=== PATIENT | male | born 1940 | race Caucasian/White ===

== ENCOUNTER 2021-06-17 23:46 | Inpatient (IN) ==
[2021-06-18] MEDS ORDERED: LIDOCAINE 2% URO-JET 10 ML JEL.PF.APP UR ONE (01:01)
[2021-06-18 01:05] LABS: POC Creatinine 2.1 mg/dL (0.6-1.2)
[2021-06-18] MEDS ORDERED: cefTRIAXone 1 GM VIAL IV ONE ×2 (01:24→07:38)
[2021-06-18 01:34] LABS: Basophils # (Auto) 0.06 K/mcL (0.00-0.30); Basophils % (Auto) 0.4 % (0.0-2.0); Eosinophils # (Auto) 0.03 K/mcL (0.00-0.70); Eosinophils % (Auto) 0.2 % (0.0-7.0); Hematocrit 26.3 % (40.1-51.0); Hemoglobin 8.9 g/dL (13.7-17.5); Lymphocytes # (Auto) 1.52 K/mcL (1.50-4.80); Lymphocytes % (Auto) 9.8 % (15.5-49.0); Mean Corpuscular HGB Conc 33.8 g/dL (31.0-36.0); Mean Platelet Volume 9.7 fL (7.4-10.4); Monocytes # (Auto) 1.55 K/mcL (0.10-0.90); Neutrophils % (Auto) 79.6 % (38.0-78.0); Platelet Count 360 K/mcL (140-440); RBC 2.99 M/mcL (4.63-6.08); Red Cell Distribution Width 14.7 % (11.5-14.5); WBC 15.5 K/mcL (4.5-11.0)
[2021-06-18 02:01] LABS: ALT/SGPT 18 U/L (<40); AST/SGOT 10 U/L (<40); Albumin 2.6 gm/dL (3.2-5.2); Albumin/Globulin Ratio 0.8 (1.0-2.3); Alkaline Phosphatase 73 U/L (39-117); Bilirubin,Total 0.4 mg/dL (0.1-1.0); Blood Urea Nitrogen 37 mg/dL (8-23); Calcium 8.4 mg/dL (8.6-10.4); Carbon Dioxide 17 mmol/L (22-30); Chloride 102 mmol/L (96-108); Globulin 3.2 gm/dL (2.2-3.7); Glomerular Filtration Rate 32; Glucose 130 mg/dL (70-105)
--- NOTE | 2021-06-18 03:20 | Cat Scan Report ---
CLINICAL INFORMATION: Fever and hypoxia COMPARISON: None. TECHNIQUE: Enteric contrast was utilized. 80 cc of Isovue-370 were injected intravenously, and 50 seconds later, 0.625 mm helical slices were obtained from the lung apices through the subtrochanteric regions of the femurs. Following reconstruction, 2.5 mm sagittal, coronal and axial reformatted images were processed and reviewed at multiple windows and levels. 7 mm MIP reconstructions were obtained through the lungs to optimize nodule detection.The exam was performed using radiation dose optimization techniques including, but not limited to, automated exposure control, adjustment of the mA and/or kV according to patient size and use of iterative reconstruction technique. FINDINGS: Pulmonary parenchymal windows mild bibasilar atelectasis.. Small right pleural effusion appreciated. Mediastinal windows show the heart is grossly normal in size and configuration. Scattered calcific plaque present within the coronary arteries. Noncontrast thoracic aorta and pulmonary arteries are normal diameter without abnormality. There is no adenopathy in the mediastinal, hilar or axillary regions. Esophagus is grossly normal. A 2 cm colloid cyst seen in the inferior left thyroid lobe. Abdominal images show mild thickened gallbladder wall with small amount of pericholecystic fluid. There are multiple small stones ranging up to 8 mm. Intrahepatic and common bile ducts are normal caliber. The noncontrasted liver, both adrenal glands, both kidneys spleen, pancreas, and aorta are normal in size, configuration and attenuation without focal lesion. There is no free air. Small amount of free fluid noted deep in the pelvis. Pelvic images show a large (9 cm) well-circumscribed mass which appears to arisen from a large diverticulum from the posterior left urinary bladder. It is possible, this represents a large obturator node extrinsically compressing the left lateral wall of the urinary bladder, but this is less likely. It compresses the distal left ureter resulting in mild left hydroureter/hydronephrosis. Urinary bladder wall is moderately thickened and irregular. A 16 mm bladder stone is present in the base with. The prostate appears be surgically absent. The stomach, small bowel, appendix region and large bowel are grossly normal. Bone windows show no evidence of metastatic disease or other significant osseous abnormality throughout the chest abdomen or pelvis. IMPRESSION: 1. Large (9 cm) mass likely originating from a large left urinary bladder diverticulum. 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 The mass partially obstructs distal left ureteral resulting in mild left hydroureter/hydronephrosis. It is possible, but unlikely, it represents a very large conglomerate of adenopathy in the left obturator region which extrinsically compresses and invades the left urinary bladder base. Further evaluation with cystoscopy recommended. If extrinsic to the bladder, it would be amenable to CT-guided percutaneous biopsy. 2. 16 mm stone urinary bladder 3. Diffuse urinary bladder wall thickening could indicate superimposed cystitis. 4. Cholelithiasis. Mild gallbladder wall thickening appreciated. This could represent cholecystitis. Consider gallbladder ultrasound 5. Large amount of subcutaneous edema seen throughout the lower abdomen and pelvis 6. Small right pleural effusion. Minor right basilar atelectasis. Interpreted and Authenticated by: Paul Figueroa 06/18/21
[2021-06-18 03:21] LABS: Appearance,Urine HAZY (Clear); Bilirubin,Urine Negative (Negative); Color,Urine YELLOW; Culture Indicated,Urine yes; Glucose,Urine (UA) Negative (Negative); Ketones,Urine Negative (Negative); Leukocyte Esterase,Urine 500 /uL (Negative); Mucus,Urine FEW /hpf; Nitrate,Urine Negative (Negative); Protein,Urine 100 mg/dL (Negative); Specific Gravity,Urine 1.011 (1.000-1.035); Urine Amorphous Crystals FEW /hpf; Urine Blood >=1.0 mg/dL (Negative); Urine RBC 10 /hpf (0-3); Urine Squamous Epithelial Cell 0 /hpf (0-4); Urine WBC 116 /hpf (0-4); Urobilinogen,Urine Negative
--- NOTE | 2021-06-18 03:27 | XRay Report ---
CLINICAL INFORMATION: Shortness of breath and fever COMPARISON: None. TECHNIQUE: PA and Lateral views FINDINGS: The heart size, mediastinum and pulmonary vessels are unremarkable. The right diaphragm is mildly elevated as before. There is minor bibasilar atelectasis. There are no effusions. The bones and soft tissues are within normal limits. IMPRESSION: Minor bibasilar atelectasis and right diaphragm elevation Interpreted and Authenticated by: Paul Figueroa 06/18/21
--- NOTE | 2021-06-18 03:51 | Emergency Department Note ---
SOB HPI General Chief Complaint: Shortness of Breath/Dyspnea Stated Complaint: Shortness of breath Time Seen by Provider: 06/18/21 00:00 Source: patient, old records reviewed and other (Dr. bharath Negron, at [facility] who was transferring [phone] ext [phone]) Mode of arrival: EMS Limitations: physical limitation (hard of hearing) History of Present Illness HPI Narrative: Narrative: 81-year-old male transferred to our facility by Dr. Bharath Negron at [facility] because the patient required CT scan which was unavailable at their location. The patient originally arrived to [facility] with hypoxia and confusion. He was noted to have a pulse ox of 60% on room air. Aft er interventions at that hospital and sometime he was able to maintain a pulse ox of 88% on 1 L of oxygen. He was noted to be tachycardic at the 115 range along with a fever of 100.5, and short of breath. On physical exam the patient had edema from his feet all the way to his groin including his penis. He has a history of a left DVT for which she was on Eliquis for the past month. Now he is got swelling in both lower extremities. He has been unable to urinate. He appears to have a distended bowel on physical exam but no pain. He had a prior urinary tract infection in December 2020. Laborat ory revealed a white count of 15,000. BUN was 2.3 and creatinine of 38. Previous laboratory showed a BUN of 17 and creatinine of 1.2. Dr. Negron wanted to get a CT scan but that was unavailable at their facility so she contacted us for transfer. We accepted. On arrival patient was alert and no longer in respiratory distress. With a pulse ox of 97% on room air and a pulse of 100 with a blood pressure of 97/57. He complained of swelling in his feet. Stated he had the edema in his lower ext remities for the past 6 weeks. Rated his discomfort at this time as a 4 on a 0- 10 scale. Constant. It had gotten better since he first went to [facility]. Possibly associated with the inability to urinate. No referred symptoms. Youngest daughter was not present when he first arrived but I had the opportunity to speak to her around 4 AM. Related Data Home Medications Medication Instructions Recorded Confirmed amlodipine 10 mg tablet 1 tab PO QDAY 06/18/21 06/18/21 apixaban 5 mg tablet (Eliquis) 5 tab PO QDAY 06/18/21 06/18/21 cholecalciferol (vitamin D3) 50 50 mcg PO QDAY 06/18/21 06/18/21 mcg (2,000 unit) capsule (Vitamin D3) diltiazem HCl 120 mg 1 cap PO QDAY 06/18/21 06/18/21 capsule,extended release 24 hr fluticasone propionate 50 1 spray INTRANASAL QDAY 06/18/21 06/18/21 mcg/actuation nasal spray,suspension losartan 100 1 tab PO QDAY 06/18/21 06/18/21 mg-hydrochlorothiazide 25 mg tablet nitrofurantoin 1 cap PO BID 06/18/21 06/18/21 monohydrate/macrocrystals 100 mg capsule ondansetron 4 mg disintegrating 4 mg PO Q6H 06/18/21 06/18/21 tablet potassium chloride 20 mEq 1 tab PO QDAY 06/18/21 06/18/21 tablet,extended release(part/cryst) (Klor-Con M) pregabalin 75 mg capsule 1 cap PO QDAY 06/18/21 06/18/21 tamsulosin 0.4 mg capsule 1 cap PO QDAY 06/18/21 06/18/21 Allergies Allergy/AdvReac Type Severity Reaction Status Date / Time lovastatin Allergy Intermediate Hives Verified 06/18/21 02:50 simvastatin Allergy Intermediate Rash Verified 06/18/21 02:50 lisinopril AdvReac Intermediate Cough Verified 06/18/21 02:50 Review of Systems ROS ROS Narrative: Narrative: Constitutional: Reports fever Eyes: Denies eye pain ENT ED: Denies throat pain or rhinorrhea Cardiovascular: Denies chest pain Respiratory: Reports shortness of breath and cough Gastrointestinal: Reports abdominal pain and other (Edematous lower part); Denies nausea or vomiting Musculoskeletal: Reports back pain (Chronic) Integumentary: Denies rash Neurological: Reports confusion (Not at the time he arrived at our hospital but prior when he was at [facility].); Denies headache Allergic/Immunologic: Denies facial swelling PFSH Narrative Patient History Narrative: Narrative: Medical/Surgical/Family History All Active Problems (Updated 06/18/21 @ 04:54 by Sujit Victoria MD) Hypertension (Acute) Influenza (Acute) UTI (urinary tract infection) (Acute) Mass of urinary bladder (Acute) Acute renal insufficiency (Acute) Anemia (Acute) Acute urinary retention (Acute) Acute respiratory insufficiency (Acute) Infection, systemic (Acute) Acute hyponatremia (Acute) Cholelithiasis (Acute) Dependent edema (Acute) Social History Smoking Status: Former smoker Exam Narrative Narrative: Narrative: General Limitations: physical limitation (hard of hearing) General appearance: Present alert, in distress and other (He has a rather large man) Head Head: Present atraumatic and normocephalic ENT ENT: Present normal oropharynx and mucous membranes moist Neck Neck: Present trachea midline; Absent meningismus Respiratory Respiratory: Present rales/crackles; Absent respiratory distress Cardiovascular Cardiovascular: Present normal rhythm and tachycardia Adbominal Abdominal: Present soft, tenderness and other (Edematous inferior abdomen) Extremities Extremities: Present pedal edema and other (4+ edema from the feet all the way to the pelvis.) Back Back: Absent tenderness Neurological Neurological: Present alert and oriented X3 Psychiatric Psychiatric: Present normal affect and normal mood Skin Skin: Present warm (WNL) and dry Course Vital Signs Vital signs: Vital Signs Temperature 102.0 F H 06/17/21 23:48 Pulse Rate 103 H 06/17/21 23:48 Respiratory Rate 21 06/17/21 23:48 Blood Pressure 90/59 06/17/21 23:48 Pulse Oximetry (%) 96 06/17/21 23:48 Temperature 97.9 F 06/18/21 01:57 Pulse Rate 88 06/18/21 09:31 Respiratory Rate 26 H 06/18/21 09:31 Blood Pressure 113/58 06/18/21 09:31 Pulse Oximetry (%) 99 06/18/21 09:31 MDM MDM Narrative Medical decision making narrative: Narrative: Elderly male presents via ambulance to our facility transfer from [facility] because of a multitude of symptoms and a clear need for CT scan. Differential diagnosis includes COVID, deep venous thrombosis, pulmonary embolus, pneumonia, pneumothorax, renal infection, sepsis, urinary tract infection, other. Laboratory performed initially revealed a white count of 15.5 with 80 gayle trophils and 10 lymphs. Hemoglobin was 8.9 which is dramatically less than the 16.1 that was on March 2019. Platelets were 360,000. Lactic acid was 1.0 which was significantly improved from the 2.8 lactic acid that [facility] obtained. Sodium was low at 131. Chloride was 102 potassium was 3.9 and bicarb was low at 17. BUN was 37 and creatinine was 1.9 after receiving fluids from [facility]. Glucose was 130. Troponin was 0.04 which is mildly elevated but may be compatible with renal disease. My nurses inserted catheter for urinary sample and the patient drained 4500 mL of urine. Patient stated he felt much better afterwards. Urinalysis revealed 10 RBCs per high-powered field and 116 WBCs per high-powered field indicating urinary tract infection. Chest x-ray showed mild bibasilar atelectasis. 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 The mass partially obstructs the distal left ureter resulting in mild left hydroureter and hydronephrosis. It is possible but unlikely that it represents a very large conglomerate of adenopathy in the left obturator region which extrinsically compresses and invades the left urinary bladder base. Further evaluation with cystoscopy recommended if the string is not to the bladder. It would be amenable to CT-guided percutaneous biopsy. CT scan also showed a 16mm stone in the urinary bladder showed the patient was status post prostatectomy, there was diffuse urinary bladder wall thickening, cholelithiasis with mild gallbladder wall thickening. Large amounts of subcutaneous edema throughout the lower abdomen and pelvis. Small right pleural effusion. Based on all of this information I believe the patient required hospitalization. The hospital has a bed and the hospitalist will be excepting. I have not reinserted a catheter into his bladder though I suspect he will need this. I do want to give the patient a chance to say whether he feels the need to urinate independently before reinserting a catheter. Patient originally met several criteria for 6 sepsis including a temperature above 100.4, tachycardia above 100, and a respiratory rate greater than 20. Patient had an adequate blood pressure and so I did not bolus him the 2 L. I did bolus him 1 L and believe he did receive a liter from [facility]. Patient was given a gram of ceftriaxone IV. At this point the patient is much improved and will be admitted to the hospital for further care. Lab Data Result diagrams: 06/18/21 00:47 06/18/21 00:47 Labs: Lab Results 06/18/21 06/18/21 06/18/21 Range/Units 00:47 00:47 00:47 WBC 15.5 H (4.5-11.0) K/mcL RBC 2.99 L (4.63-6.08) M/mcL Hgb 8.9 L (13.7-17.5) g/dL Hct 26.3 L (40.1-51.0) % MCV 88.0 (80.0-100.0) fL MCH 29.8 (26.0-34.0) pg MCHC 33.8 (31.0-36.0) g/dL RDW 14.7 H (11.5-14.5) % Plt Count 360 (140-440) K/mcL MPV 9.7 (7.4-10.4) fL Neut % (Auto) 79.6 H (38.0-78.0) % Lymph % (Auto) 9.8 L (15.5-49.0) % [place] % (Auto) 10.0 (1.0-12.0) % Eos % (Auto) 0.2 (0.0-7.0) % Baso % (Auto) 0.4 (0.0-2.0) % Lymph # (Auto) 1.52 (1.50-4.80) K/mcL [place] # (Auto) 1.55 H (0.10-0.90) K/mcL Eos # (Auto) 0.03 (0.00-0.70) K/mcL Baso # (Auto) 0.06 (0.00-0.30) K/mcL Absolute Neutrophils 12.34 H (1.80-8.00) K/mcL VBG Lactic Acid 1.0 (0.5-2.0) mmol/L Sodium 131 L (133-145) mmol/L Potassium 3.9 (3.3-5.1) mmol/L Chloride 102 (96-108) mmol/L Carbon Dioxide 17 L (22-30) mmol/L Anion Gap 12.0 (8.0-16.0) BUN 37 H (8-23) mg/dL Creatinine 1.9 H (0.7-1.2) mg/dL POC Creatinine 2.1 H (0.6-1.2) mg/dL GFR Calculation 32 Glucose 130 H (70-105) mg/dL Calcium 8.4 L (8.6-10.4) mg/dL Total Bilirubin 0.4 (0.1-1.0) mg/dL AST 10 (<40) U/L ALT 18 (<40) U/L Alkaline Phosphatase 73 (39-117) U/L Troponin T (<0.03) ng/mL NT-Pro-B Natriuret Pep (<450.0) pg/mL Total Protein 5.8 L (5.9-8.4) gm/dL Albumin 2.6 L (3.2-5.2) gm/dL Globulin 3.2 (2.2-3.7) gm/dL Albumin/Globulin Ratio 0.8 L (1.0-2.3) Urine Color Urine Appearance (Clear) Urine pH (5.0-9.0) Ur Specific [place] (1.000-1.035) Urine Protein (Negative) mg/dL Urine Glucose (UA) (Negative) mg/dL Urine Ketones (Negative) mg/dL Urine Occult Blood (Negative) mg/dL Urine Nitrate (Negative) Urine Bilirubin (Negative) mg/dL Urine Urobilinogen mg/dL Ur Leukocyte Esterase (Negative) /uL Urine RBC (0-3) /hpf Urine WBC (0-4) /hpf Ur Squamous Epith Cells (0-4) /hpf Amorphous Crystals (None) /hpf Urine Bacteria (0) /hpf Urine Mucus (None) /hpf Ur Culture Indicated? 06/18/21 06/18/21 06/18/21 Range/Units 00:47 01:34 07:14 WBC (4.5-11.0) K/mcL RBC (4.63-6.08) M/mcL Hgb (13.7-17.5) g/dL Hct (40.1-51.0) % MCV (80.0-100.0) fL MCH (26.0-34.0) pg MCHC (31.0-36.0) g/dL RDW (11.5-14.5) % Plt Count (140-440) K/mcL MPV (7.4-10.4) fL Neut % (Auto) (38.0-78.0) % Lymph % (Auto) (15.5-49.0) % Stafford % (Auto) (1.0-12.0) % Eos % (Auto) (0.0-7.0) % Baso % (Auto) (0.0-2.0) % Lymph # (Auto) (1.50-4.80) K/mcL Stafford # (Auto) (0.10-0.90) K/mcL Eos # (Auto) (0.00-0.70) K/mcL Baso # (Auto) (0.00-0.30) K/mcL Absolute Neutrophils (1.80-8.00) K/mcL VBG Lactic Acid (0.5-2.0) mmol/L Sodium (133-145) mmol/L Potassium (3.3-5.1) mmol/L Chloride (96-108) mmol/L Carbon Dioxide (22-30) mmol/L Anion Gap (8.0-16.0) BUN (8-23) mg/dL Creatinine (0.7-1.2) mg/dL POC Creatinine (0.6-1.2) mg/dL GFR Calculation Glucose (70-105) mg/dL Calcium (8.6-10.4) mg/dL Total Bilirubin (0.1-1.0) mg/dL AST (<40) U/L ALT (<40) U/L Alkaline Phosphatase (39-117) U/L Troponin T 0.04 H* 0.05 H* (<0.03) ng/mL NT-Pro-B Natriuret Pep (<450.0) pg/mL Total Protein (5.9-8.4) gm/dL Albumin (3.2-5.2) gm/dL Globulin (2.2-3.7) gm/dL Albumin/Globulin Ratio (1.0-2.3) Urine Color Yellow Urine Appearance Hazy A (Clear) Urine pH 5.0 (5.0-9.0) Ur Specific [place] 1.011 (1.000-1.035) Urine Protein 100 A (Negative) mg/dL Urine Glucose (UA) Negative (Negative) mg/dL Urine Ketones Negative (Negative) mg/dL Urine Occult Blood >=1.0 A (Negative) mg/dL Urine Nitrate Negative (Negative) Urine Bilirubin Negative (Negative) mg/dL Urine Urobilinogen Negative mg/dL Ur Leukocyte Esterase 500 A (Negative) /uL Urine RBC 10 H (0-3) /hpf Urine WBC 116 H (0-4) /hpf Ur Squamous Epith Cells 0 (0-4) /hpf Amorphous Crystals Few A (None) /hpf Urine Bacteria None (0) /hpf Urine Mucus Few A (None) /hpf Ur Culture Indicated? yes 06/18/21 Range/Units 07:14 WBC (4.5-11.0) K/mcL RBC (4.63-6.08) M/mcL Hgb (13.7-17.5) g/dL Hct (40.1-51.0) % MCV (80.0-100.0) fL MCH (26.0-34.0) pg MCHC (31.0-36.0) g/dL RDW (11.5-14.5) % Plt Count (140-440) K/mcL MPV (7.4-10.4) fL Neut % (Auto) (38.0-78.0) % Lymph % (Auto) (15.5-49.0) % Stafford % (Auto) (1.0-12.0) % Eos % (Auto) (0.0-7.0) % Baso % (Auto) (0.0-2.0) % Lymph # (Auto) (1.50-4.80) K/mcL [place] # (Auto) (0.10-0.90) K/mcL Eos # (Auto) (0.00-0.70) K/mcL Baso # (Auto) (0.00-0.30) K/mcL Absolute Neutrophils (1.80-8.00) K/mcL VBG Lactic Acid (0.5-2.0) mmol/L Sodium (133-145) mmol/L Potassium (3.3-5.1) mmol/L Chloride (96-108) mmol/L Carbon Dioxide (22-30) mmol/L Anion Gap (8.0-16.0) BUN (8-23) mg/dL Creatinine (0.7-1.2) mg/dL POC Creatinine (0.6-1.2) mg/dL GFR Calculation Glucose (70-105) mg/dL Calcium (8.6-10.4) mg/dL Total Bilirubin (0.1-1.0) mg/dL AST (<40) U/L ALT (<40) U/L Alkaline Phosphatase (39-117) U/L Troponin T (<0.03) ng/mL NT-Pro-B Natriuret Pep 1044.0 H (<450.0) pg/mL Total Protein (5.9-8.4) gm/dL Albumin (3.2-5.2) gm/dL Globulin (2.2-3.7) gm/dL Albumin/Globulin Ratio (1.0-2.3) Urine Color Urine Appearance (Clear) Urine pH (5.0-9.0) Ur Specific [place] (1.000-1.035) Urine Protein (Negative) mg/dL Urine Glucose (UA) (Negative) mg/dL Urine Ketones (Negative) mg/dL Urine Occult Blood (Negative) mg/dL Urine Nitrate (Negative) Urine Bilirubin (Negative) mg/dL Urine Urobilinogen mg/dL Ur Leukocyte Esterase (Negative) /uL Urine RBC (0-3) /hpf Urine WBC (0-4) /hpf Ur Squamous Epith Cells (0-4) /hpf Amorphous Crystals (None) /hpf Urine Bacteria (0) /hpf Urine Mucus (None) /hpf Ur Culture Indicated? ED POC Tests ED POC Tests: DAVID - SARS Antigen Negative EKG Data EKG #1: EKG shows normal: sinus rhythm and axis Rate: normal Rhythm: NSR [place]/QRS: normal Voltage: decreased voltage throughout Heart block present: 1st Degree ST segment elevation in: None ST segment depression in: None Interpretation: other (Abnormal EKG.) CC TIME Critical Care Time Critical Care Time: Yes Total Critical Care Time: 40 Attestation: I spent greater than 40 minutes managing this patient including review of his chart, discussion with the transferring physician, review of the laboratory results, physical exam, speaking with family. Patient was critical in view of his meeting sepsis criteria and having been in respiratory failure at the transferring facility. Discharge Plan Patient/Caregiver Discharge Instructions Pt seen by ACCOUNTING SYSTEMS MANAGER/PA only: No Clinical Impression: Mass of urinary bladder, Acute renal insufficiency, Anemia, Acute urinary retention, Acute respiratory insufficiency, Infection, systemic, Acute hyponatr emia, Cholelithiasis, Dependent edema Patient Disposition: Xfer As Inpt ([facility]) Condition: Serious Follow up with: Debby Aranda ARNP [Primary Care Provider] - Prescriptions: No Action losartan-hydrochlorothiazide 100-25 mg tablet 1 tab PO QDAY 0RF potassium chloride [Klor-Con M20] 20 mEq tablet,ER particles/crystals 1 tab PO QDAY 0RF tamsulosin 0.4 mg capsule 1 cap PO QDAY 0RF amlodipine 10 mg tablet 1 tab PO QDAY 0RF diltiazem HCl 120 mg capsule,extended release 24hr 1 cap PO QDAY 0RF ondansetron 4 mg Tablet,Disintegrating 4 mg PO Q6H 0RF fluticasone propionate 50 mcg/actuation [place],Suspension 1 spray INTRANASAL QDAY 0RF Rx Instructions: administer into each nostril nitrofurantoin monohyd/m-cryst 100 mg capsule 1 cap PO BID 0RF pregabalin 75 mg capsule 1 cap PO QDAY 0RF cholecalciferol (vitamin D3) [Vitamin D3] 50 mcg (2,000 unit) Capsule 50 mcg PO QDAY 0RF Eliquis 5 mg tablet 5 tab PO QDAY 0RF
[2021-06-18] MEDS ORDERED: cefTRIAXone 1 GM VIAL IM ONE (06:58)
--- NOTE | 2021-06-18 09:08 | Emergency Department Note ---
Course Course Course Narrative: I assumed care from Dr. Victoria at the change of shift. Patient has been resting comfortably in bed without further complaints. I followed up on the repeat troponin which is not significantly elevated and discussed the situation with Dr. Nathan. He accepts admission to his service and will provide care in the hospital. Vital Signs Vital signs: Vital Signs Temperature 102.0 F H 06/17/21 23:48 Pulse Rate 103 H 06/17/21 23:48 Respiratory Rate 21 06/17/21 23:48 Blood Pressure 90/59 06/17/21 23:48 Pulse Oximetry (%) 96 06/17/21 23:48 Temperature 97.9 F 06/18/21 01:57 Pulse Rate 86 06/18/21 08:46 Respiratory Rate 19 06/18/21 08:46 Blood Pressure 122/67 06/18/21 08:46 Pulse Oximetry (%) 100 06/18/21 08:46 MDM MDM Narrative Medical decision making narrative: Narrative: Lab Data Result diagrams: 06/18/21 00:47 06/18/21 00:47 Labs: Lab Results 06/18/21 06/18/21 06/18/21 Range/Units 00:47 00:47 00:47 WBC 15.5 H (4.5-11.0) K/mcL RBC 2.99 L (4.63-6.08) M/mcL Hgb 8.9 L (13.7-17.5) g/dL Hct 26.3 L (40.1-51.0) % MCV 88.0 (80.0-100.0) fL MCH 29.8 (26.0-34.0) pg MCHC 33.8 (31.0-36.0) g/dL RDW 14.7 H (11.5-14.5) % Plt Count 360 (140-440) K/mcL MPV 9.7 (7.4-10.4) fL Neut % (Auto) 79.6 H (38.0-78.0) % Lymph % (Auto) 9.8 L (15.5-49.0) % [place] % (Auto) 10.0 (1.0-12.0) % Eos % (Auto) 0.2 (0.0-7.0) % Baso % (Auto) 0.4 (0.0-2.0) % Lymph # (Auto) 1.52 (1.50-4.80) K/mcL [place] # (Auto) 1.55 H (0.10-0.90) K/mcL Eos # (Auto) 0.03 (0.00-0.70) K/mcL Baso # (Auto) 0.06 (0.00-0.30) K/mcL Absolute Neutrophils 12.34 H (1.80-8.00) K/mcL VBG Lactic Acid 1.0 (0.5-2.0) mmol/L Sodium 131 L (133-145) mmol/L Potassium 3.9 (3.3-5.1) mmol/L Chloride 102 (96-108) mmol/L Carbon Dioxide 17 L (22-30) mmol/L Anion Gap 12.0 (8.0-16.0) BUN 37 H (8-23) mg/dL Creatinine 1.9 H (0.7-1.2) mg/dL POC Creatinine 2.1 H (0.6-1.2) mg/dL GFR Calculation 32 Glucose 130 H (70-105) mg/dL Calcium 8.4 L (8.6-10.4) mg/dL Total Bilirubin 0.4 (0.1-1.0) mg/dL AST 10 (<40) U/L ALT 18 (<40) U/L Alkaline Phosphatase 73 (39-117) U/L Troponin T (<0.03) ng/mL NT-Pro-B Natriuret Pep (<450.0) pg/mL Total Protein 5.8 L (5.9-8.4) gm/dL Albumin 2.6 L (3.2-5.2) gm/dL Globulin 3.2 (2.2-3.7) gm/dL Albumin/Globulin Ratio 0.8 L (1.0-2.3) Urine Color Urine Appearance (Clear) Urine pH (5.0-9.0) Ur Specific [place] (1.000-1.035) Urine Protein (Negative) mg/dL Urine Glucose (UA) (Negative) mg/dL Urine Ketones (Negative) mg/dL Urine Occult Blood (Negative) mg/dL Urine Nitrate (Negative) Urine Bilirubin (Negative) mg/dL Urine Urobilinogen mg/dL Ur Leukocyte Esterase (Negative) /uL Urine RBC (0-3) /hpf Urine WBC (0-4) /hpf Ur Squamous Epith Cells (0-4) /hpf Amorphous Crystals (None) /hpf Urine Bacteria (0) /hpf Urine Mucus (None) /hpf Ur Culture Indicated? 06/18/21 06/18/21 06/18/21 Range/Units 00:47 01:34 07:14 WBC (4.5-11.0) K/mcL RBC (4.63-6.08) M/mcL Hgb (13.7-17.5) g/dL Hct (40.1-51.0) % MCV (80.0-100.0) fL MCH (26.0-34.0) pg MCHC (31.0-36.0) g/dL RDW (11.5-14.5) % Plt Count (140-440) K/mcL MPV (7.4-10.4) fL Neut % (Auto) (38.0-78.0) % Lymph % (Auto) (15.5-49.0) % [place] % (Auto) (1.0-12.0) % Eos % (Auto) (0.0-7.0) % Baso % (Auto) (0.0-2.0) % Lymph # (Auto) (1.50-4.80) K/mcL [place] # (Auto) (0.10-0.90) K/mcL Eos # (Auto) (0.00-0.70) K/mcL Baso # (Auto) (0.00-0.30) K/mcL Absolute Neutrophils (1.80-8.00) K/mcL VBG Lactic Acid (0.5-2.0) mmol/L Sodium (133-145) mmol/L Potassium (3.3-5.1) mmol/L Chloride (96-108) mmol/L Carbon Dioxide (22-30) mmol/L Anion Gap (8.0-16.0) BUN (8-23) mg/dL Creatinine (0.7-1.2) mg/dL POC Creatinine (0.6-1.2) mg/dL GFR Calculation Glucose (70-105) mg/dL Calcium (8.6-10.4) mg/dL Total Bilirubin (0.1-1.0) mg/dL AST (<40) U/L ALT (<40) U/L Alkaline Phosphatase (39-117) U/L Troponin T 0.04 H* 0.05 H* (<0.03) ng/mL NT-Pro-B Natriuret Pep (<450.0) pg/mL Total Protein (5.9-8.4) gm/dL Albumin (3.2-5.2) gm/dL Globulin (2.2-3.7) gm/dL Albumin/Globulin Ratio (1.0-2.3) Urine Color Yellow Urine Appearance Hazy A (Clear) Urine pH 5.0 (5.0-9.0) Ur Specific [place] 1.011 (1.000-1.035) Urine Protein 100 A (Negative) mg/dL Urine Glucose (UA) Negative (Negative) mg/dL Urine Ketones Negative (Negative) mg/dL Urine Occult Blood >=1.0 A (Negative) mg/dL Urine Nitrate Negative (Negative) Urine Bilirubin Negative (Negative) mg/dL Urine Urobilinogen Negative mg/dL Ur Leukocyte Esterase 500 A (Negative) /uL Urine RBC 10 H (0-3) /hpf Urine WBC 116 H (0-4) /hpf Ur Squamous Epith Cells 0 (0-4) /hpf Amorphous Crystals Few A (None) /hpf Urine Bacteria None (0) /hpf Urine Mucus Few A (None) /hpf Ur Culture Indicated? yes 06/18/21 Range/Units 07:14 WBC (4.5-11.0) K/mcL RBC (4.63-6.08) M/mcL Hgb (13.7-17.5) g/dL Hct (40.1-51.0) % MCV (80.0-100.0) fL MCH (26.0-34.0) pg MCHC (31.0-36.0) g/dL RDW (11.5-14.5) % Plt Count (140-440) K/mcL MPV (7.4-10.4) fL Neut % (Auto) (38.0-78.0) % Lymph % (Auto) (15.5-49.0) % [place] % (Auto) (1.0-12.0) % Eos % (Auto) (0.0-7.0) % Baso % (Auto) (0.0-2.0) % Lymph # (Auto) (1.50-4.80) K/mcL [place] # (Auto) (0.10-0.90) K/mcL Eos # (Auto) (0.00-0.70) K/mcL Baso # (Auto) (0.00-0.30) K/mcL Absolute Neutrophils (1.80-8.00) K/mcL VBG Lactic Acid (0.5-2.0) mmol/L Sodium (133-145) mmol/L Potassium (3.3-5.1) mmol/L Chloride (96-108) mmol/L Carbon Dioxide (22-30) mmol/L Anion Gap (8.0-16.0) BUN (8-23) mg/dL Creatinine (0.7-1.2) mg/dL POC Creatinine (0.6-1.2) mg/dL GFR Calculation Glucose (70-105) mg/dL Calcium (8.6-10.4) mg/dL Total Bilirubin (0.1-1.0) mg/dL AST (<40) U/L ALT (<40) U/L Alkaline Phosphatase (39-117) U/L Troponin T (<0.03) ng/mL NT-Pro-B Natriuret Pep 1044.0 H (<450.0) pg/mL Total Protein (5.9-8.4) gm/dL Albumin (3.2-5.2) gm/dL Globulin (2.2-3.7) gm/dL Albumin/Globulin Ratio (1.0-2.3) Urine Color Urine Appearance (Clear) Urine pH (5.0-9.0) Ur Specific [place] (1.000-1.035) Urine Protein (Negative) mg/dL Urine Glucose (UA) (Negative) mg/dL Urine Ketones (Negative) mg/dL Urine Occult Blood (Negative) mg/dL Urine Nitrate (Negative) Urine Bilirubin (Negative) mg/dL Urine Urobilinogen mg/dL Ur Leukocyte Esterase (Negative) /uL Urine RBC (0-3) /hpf Urine WBC (0-4) /hpf Ur Squamous Epith Cells (0-4) /hpf Amorphous Crystals (None) /hpf Urine Bacteria (0) /hpf Urine Mucus (None) /hpf Ur Culture Indicated? ED POC Tests ED POC Tests: DAVID - SARS Antigen Negative Discharge Plan Patient/Caregiver Discharge Instructions Pt seen by [employer]/PA only: No Clinical Impression: Mass of urinary bladder, Acute renal insufficiency, Anemia, Acute urinary retention, Acute respiratory insufficiency, Infection, systemic, Acute hyponatremia, Cholelithiasis, Dependent edema Patient Disposition: Xfer As Inpt ([facility]) Condition: Serious Follow up with: Debby Aranda ARNP [Primary Care Provider] - Prescriptions: No Action losartan-hydrochlorothiazide 100-25 mg tablet 1 tab PO QDAY 0RF potassium chloride [Klor-Con M20] 20 mEq tablet,ER particles/crystals 1 tab PO QDAY 0RF tamsulosin 0.4 mg capsule 1 cap PO QDAY 0RF amlodipine 10 mg tablet 1 tab PO QDAY 0RF diltiazem HCl 120 mg capsule,extended release 24hr 1 cap PO QDAY 0RF ondansetron 4 mg Tablet,Disintegrating 4 mg PO Q6H 0RF fluticasone propionate 50 mcg/actuation [place],Suspension 1 spray INTRANASAL QDAY 0RF Rx Instructions: administer into each nostril nitrofurantoin monohyd/m-cryst 100 mg capsule 1 cap PO BID 0RF pregabalin 75 mg capsule 1 cap PO QDAY 0RF cholecalciferol (vitamin D3) [Vitamin D3] 50 mcg (2,000 unit) Capsule 50 mcg PO QDAY 0RF Eliquis 5 mg tablet 5 tab PO QDAY 0RF
--- NOTE | 2021-06-18 09:28 | Internal Med History&Physical ---
HPI History of Present Illness Patient information: Note initiated : 06/18/21 at 9:23 am Service Date, if different from initiated Date: [] Patient: Jean Claude Clayton 81 y/o M admitted on for Shortness of breath. Chief Complaint: [] History of present illness: 81-year-old male with a history of hypertension, recently diagnosed left lower extremity DVT on Eliquis presented to an outside hospital ([facility]) with a chief complaint of bilateral lower extremity edema. Per report, the patient was initially found to be hypoxic and there was concern for abdominal pathology requiring a CT scan. Since the CT scan was not available, the patient was transported to the [facility] ED where he was found to have a large bladder mass partially obstructing the left ureter causing left-sided hydronephrosis. The patient had severe urinary retention, over 4 L was drained and ED. There was also concern for a UTI. The patient's hypoxia resolved. The patient also appears to be in right-sided heart failure with extensive bilateral lower extremity pitting edema. Review of systems Constitutional: no fever, fatigue, or weight loss Eyes: no vision changes or pain Cardiovascular: no chest pain, no palpitations Respiratory: no cough or dyspnea Gastrointestinal: no abdominal pain, no nausea, vomiting, or diarrhea Genitourinary: no dysuria or difficulty voiding Musculoskeletal: no arthralgia or myalgia Integumentary: no skin lesion or wound Neurological: no focal weakness or numbness Psychiatric: no anxiety or depression Physical exam Head: Atraumatic, normal inspection. Eyes: normal appearance, no scleral icterus. Neck: full ROM Respiratory: no respiratory distress. Cardiovascular: normal rate and rhythm, S1, S2. GI/Abdominal: soft, nontender, no guarding. Extremities: full range of motion, nontender. Neurological: CN II-XII intact, intact motor, intact sensation. Psychiatric: normal mood. Skin: warm, normal color PFSH PFSH All Active Problems (Updated 06/18/21 @ 04:54 by Sujit Victoria MD) Hypertension (Acute) Influenza (Acute) UTI (urinary tract infection) (Acute) Mass of urinary bladder (Acute) Acute renal insufficiency (Acute) Anemia (Acute) Acute urinary retention (Acute) Acute respiratory insufficiency (Acute) Infection, systemic (Acute) Acute hyponatremia (Acute) Cholelithiasis (Acute) Dependent edema (Acute) MEDS/ALLERGIES Home Medications and Allergies Home Medications Medication Instructions Recorded Confirmed Type amlodipine 10 mg tablet 1 tab PO QDAY 06/18/21 06/18/21 History apixaban 5 mg tablet (Eliquis) 5 tab PO QDAY 06/18/21 06/18/21 History cholecalciferol (vitamin D3) 50 50 mcg PO QDAY 06/18/21 06/18/21 History mcg (2,000 unit) capsule (Vitamin D3) diltiazem HCl 120 mg 1 cap PO QDAY 06/18/21 06/18/21 History capsule,extended release 24 hr fluticasone propionate 50 1 spray INTRANASAL QDAY 06/18/21 06/18/21 History mcg/actuation nasal spray,suspension losartan 100 1 tab PO QDAY 06/18/21 06/18/21 History mg-hydrochlorothiazide 25 mg tablet nitrofurantoin 1 cap PO BID 06/18/21 06/18/21 History monohydrate/macrocrystals 100 mg capsule ondansetron 4 mg disintegrating 4 mg PO Q6H 06/18/21 06/18/21 History tablet potassium chloride 20 mEq 1 tab PO QDAY 06/18/21 06/18/21 History tablet,extended release(part/cryst) (Klor-Con M) pregabalin 75 mg capsule 1 cap PO QDAY 06/18/21 06/18/21 History tamsulosin 0.4 mg capsule 1 cap PO QDAY 06/18/21 06/18/21 History Allergies Allergy/AdvReac Type Severity Reaction Status Date / Time lovastatin Allergy Intermediate Hives Verified 06/18/21 02:50 simvastatin Allergy Intermediate Rash Verified 06/18/21 02:50 lisinopril AdvReac Intermediate Cough Verified 06/18/21 02:50 EXAM Constitutional Vitals: Temp Pulse Resp BP Pulse Ox 97.9 F 86 19 120/70 97 06/18/21 01:57 06/18/21 09:16 06/18/21 09:16 06/18/21 09:16 06/18/21 09:16 DATA Data Completed and Pending Labs: Labs from last 24 hours 06/18/21 06/18/21 06/18/21 07:14 07:14 01:34 WBC RBC Hgb Hct MCV MCH MCHC RDW Plt Count MPV Neut % (Auto) Lymph % (Auto) [place] % (Auto) Eos % (Auto) Baso % (Auto) Lymph # (Auto) [place] # (Auto) Eos # (Auto) Baso # (Auto) Absolute Neutrophils VBG Lactic Acid Sodium Potassium Chloride Carbon Dioxide Anion Gap BUN Creatinine POC Creatinine GFR Calculation Glucose Calcium Total Bilirubin AST ALT Alkaline Phosphatase Troponin T 0.05 H* NT-Pro-B Natriuret Pep 1044.0 H Total Protein Albumin Globulin Albumin/Globulin Ratio Urine Color Yellow Urine Appearance Hazy A Urine pH 5.0 Ur Specific [place] 1.011 Urine Protein 100 A Urine Glucose (UA) Negative Urine Ketones Negative Urine Occult Blood >=1.0 A Urine Nitrate Negative Urine Bilirubin Negative Urine Urobilinogen Negative Ur Leukocyte Esterase 500 A Urine RBC 10 H Urine WBC 116 H Ur Squamous Epith Cells 0 Amorphous Crystals Few A Urine Bacteria None Urine Mucus Few A Ur Culture Indicated? yes 06/18/21 06/18/21 06/18/21 00:47 00:47 00:47 WBC RBC Hgb Hct MCV MCH MCHC RDW Plt Count MPV Neut % (Auto) Lymph % (Auto) [place] % (Auto) Eos % (Auto) Baso % (Auto) Lymph # (Auto) [place] # (Auto) Eos # (Auto) Baso # (Auto) Absolute Neutrophils VBG Lactic Acid 1.0 Sodium 131 L Potassium 3.9 Chloride 102 Carbon Dioxide 17 L Anion Gap 12.0 BUN 37 H Creatinine 1.9 H POC Creatinine 2.1 H GFR Calculation 32 Glucose 130 H Calcium 8.4 L Total Bilirubin 0.4 AST 10 ALT 18 Alkaline Phosphatase 73 Troponin T 0.04 H* NT-Pro-B Natriuret Pep Total Protein 5.8 L Albumin 2.6 L Globulin 3.2 Albumin/Globulin Ratio 0.8 L Urine Color Urine Appearance Urine pH Ur Specific [place] Urine Protein Urine Glucose (UA) Urine Ketones Urine Occult Blood Urine Nitrate Urine Bilirubin Urine Urobilinogen Ur Leukocyte Esterase Urine RBC Urine WBC Ur Squamous Epith Cells Amorphous Crystals Urine Bacteria Urine Mucus Ur Culture Indicated? 06/18/21 00:47 WBC 15.5 H RBC 2.99 L Hgb 8.9 L Hct 26.3 L MCV 88.0 MCH 29.8 MCHC 33.8 RDW 14.7 H Plt Count 360 MPV 9.7 Neut % (Auto) 79.6 H Lymph % (Auto) 9.8 L [place] % (Auto) 10.0 Eos % (Auto) 0.2 Baso % (Auto) 0.4 Lymph # (Auto) 1.52 [place] # (Auto) 1.55 H Eos # (Auto) 0.03 Baso # (Auto) 0.06 Absolute Neutrophils 12.34 H VBG Lactic Acid Sodium Potassium Chloride Carbon Dioxide Anion Gap BUN Creatinine POC Creatinine GFR Calculation Glucose Calcium Total Bilirubin AST ALT Alkaline Phosphatase Troponin T NT-Pro-B Natriuret Pep Total Protein Albumin Globulin Albumin/Globulin Ratio Urine Color Urine Appearance Urine pH Ur Specific [place] Urine Protein Urine Glucose (UA) Urine Ketones Urine Occult Blood Urine Nitrate Urine Bilirubin Urine Urobilinogen Ur Leukocyte Esterase Urine RBC Urine WBC Ur Squamous Epith Cells Amorphous Crystals Urine Bacteria Urine Mucus Ur Culture Indicated? A/P Narrative A/P Narrative: Assessment: 81-year-old male with a history of hypertension, recently diagnosed left lower extremity DVT on Eliquis presented to an outside hospital ([facility]) for worsening lower extremity and abdominal distention. A CT scan was not feasible at the outside hospital so the patient was transferred to the [facility] ED where a CT abdomen and pelvis without contrast showed a large bladder mass as well as mild left hydronephrosis and hydroureter. The patient was also found to have large volume urinary retention likely related to the bladder mass and an acute kidney injury. There is also concern for possible UTI and right sided heart failure. #Large bladder mass causing left hydronephrosis (mild) #Urinary retention likely secondary to bladder outlet obstruction #Acute kidney injury (possibly obstructive nephropathy) #Possible UTI #Concern for right sided heart failure #Recent left lower extremity DVT on Eliquis #Essential hypertension Plan -Ceftriaxone IV Q24 hrs for possible UTI. -Follow urine and blood cultures. -Place Nice catheter for urinary retention. -Monitor urine output for post obstructive diuresis. -Consider diuresis however the patient may develop post obstructive diuresis. -TTE ordered. -Continue home Eliquis BID and Flomax. -Home medication reconciliation, hold antihypertensives for now. -Low sodium diet. -Urology consult. -PT and OT consult. -DVT ppx: On Eliquis. -Code status: Full -Disposition: TBD Time Spent With Patient Time: Total time spent is greater than 50% in coordination of care (as documented) at patient's floor/unit and/or counseling patient:
--- NOTE | 2021-06-18 10:41 | Emergency Department Note ---
ED Note Addendum Note Addendum: Dr. Nathan: Expressed concerns about admitting the patient to our hospital. He notes that our urologist is not comfortable performing cystoscopy on an anticoagulated patient and thinks the patient would benefit from transfer to a facility with interventional radiology available. We will assist Dr. Nathan in transferring the patient
[2021-06-18] MEDS: APIXABAN 5 MG TABLET PO SCH ×2 (11:39→21:40)
--- NOTE | 2021-06-18 13:47 | EKG ---
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 Measurements Intervals [place] Rate: 85 P: -12 KS: 314 QRS: 82 QRSD: 95 T: -11 QT: 378 QTc: 450 Interpretive Statements Sinus rhythm FIRST DEGREE AV BLOCK LOW VOLTAGE THROUGHOUT Electronically Signed On 06-18-2021 13:47:13 PST by Paul Higginbotham M.D. /[email or web address]/[email or web address]/[id number]
--- NOTE | 2021-06-18 14:01 | Ultrasound Report ---
CLINICAL INFORMATION: Recent DVT increasing edema. COMPARISON: None. FINDINGS: The entire deep venous system of the right leg including the common femoral, superficial femoral, popliteal and paired trifurcation calf veins are easily compressible and show normal venous blood flow on color and spectral Doppler. No evidence of thrombus. On the left, there is subocclusive thrombus within one of the paired peroneal veins. The remainder of the left deep venous system is unremarkable. IMPRESSION: Right leg deep venous system is widely patent. Subocclusive thrombus within one of the paired left peroneal veins. The remainder of the left deep venous system is patent. Interpreted and Authenticated by: Paul Figueroa 06/18/21
--- NOTE | 2021-06-18 16:03 | Emergency Department Note ---
ED Note Addendum Note Addendum: The community living coach has made significant efforts to find a suitable facility to transfer the patient to. No facilities have available beds. I discussed the situation with Dr. Nathan. He he agrees that admitting the patient to our facility would be the best course of action at this time while we await appropr iate transfer. I discussed the plan with the patient and he is agreeable. He has still not spontaneously voided so I think he would benefit from Nice catheter placement at this time.
--- NOTE | 2021-06-18 16:03 | Urology Consult Note ---
HPI Data of Consult Patient: new to practice Consult date: 06/18/21 Requesting physician: Arturo Nathan Primary Care Provider: THAIS Deluna Consult Narrative Patient Information: Note initiated : 06/18/21 at 3:58 pm Service Date, if different from initiated Date: [] Patient: Jean Claude Clayton 81 y/o M admitted on for Shortness of breath. Chief Complaint: Urinary retention, lower extremity edema, bladder mass, left hydronephrosis Jean Claude is an 81-year-old male who was transferred to our emergency room from the [facility] [place] in [place] for further evaluation with CT scan. 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 CT of the chest abdomen and pelvis was performed at our hospital today with oral but no IV contrast. The kidneys appear to be normal in size. There are no renal masses. There are no renal stones. In the pelvis there is a 9 cm well-circumscribed mass that appears to arise from a large diverticulum on the posterior wall of the bladder on the left. This could potentially be a large obturator lymph node compressing the left lateral wall urinary bladder or a bladder mass. It compresses the distal left ureter resulting in mild left hydronephrosis. Urinary bladder wall is moderately thickened and irregular. There is a 16mm bladder stone at the base of the bladder. The prostate appears to be surgically absent. There is a large amount of subcutaneous edema in the lower abdomen and pelvis. There is a small right pleural effusion and minor right basilar atelectasis. I have personally reviewed this films. The patient does not report that he is uncomfortable. He reports that yesterday they placed a Nice catheter in [place] and drinking 1 gallon of urine from the bladder. He reports that the urine was clear and that the catheter was then removed. He remains on Eliquis for his DVT. The patient reports that in 2000 he had a portion of the prostate removed, likely a transurethral resection of the prostate, by Dr. Bradley in [place]. I have no outside records regarding his prior urologic history for review. The hospitalist service asked for urology consultation for further evaluation and management of this patient. Chief complaint: Urinary retention, bladder mass, left hydronephrosis Reason for consult: Urinary retention, bladder mass, left hydronephrosis cc:: CC: Review of Systems All systems: reviewed and no additional remarkable complaints except as stated Constitutional Constitutional: Present as per HPI, fatigue, lethargy and weakness PFSH PFSH All Active Problems Hypertension (Acute) Influenza (Acute) UTI (urinary tract infection) (Acute) Mass of urinary bladder (Acute) Acute renal insufficiency (Acute) Anemia (Acute) Acute urinary retention (Acute) Acute respiratory insufficiency (Acute) Infection, systemic (Acute) Acute hyponatremia (Acute) Cholelithiasis (Acute) Dependent edema (Acute) MEDS/ALLERGIES Home Medications and Allergies Home Medications Medication Instructions Recorded Confirmed Type amlodipine 10 mg tablet 1 tab PO QDAY 06/18/21 06/18/21 History apixaban 5 mg tablet (Eliquis) 5 tab PO QDAY 06/18/21 06/18/21 History cholecalciferol (vitamin D3) 50 50 mcg PO QDAY 06/18/21 06/18/21 History mcg (2,000 unit) capsule (Vitamin D3) diltiazem HCl 120 mg 1 cap PO QDAY 06/18/21 06/18/21 History capsule,extended release 24 hr fluticasone propionate 50 1 spray INTRANASAL QDAY 06/18/21 06/18/21 History mcg/actuation nasal spray,suspension losartan 100 1 tab PO QDAY 06/18/21 06/18/21 History mg-hydrochlorothiazide 25 mg tablet nitrofurantoin 1 cap PO BID 06/18/21 06/18/21 History monohydrate/macrocrystals 100 mg capsule ondansetron 4 mg disintegrating 4 mg PO Q6H 06/18/21 06/18/21 History tablet potassium chloride 20 mEq 1 tab PO QDAY 06/18/21 06/18/21 History tablet,extended release(part/cryst) (Klor-Con M) pregabalin 75 mg capsule 1 cap PO QDAY 06/18/21 06/18/21 History tamsulosin 0.4 mg capsule 1 cap PO QDAY 06/18/21 06/18/21 History Allergies Allergy/AdvReac Type Severity Reaction Status Date / Time lovastatin Allergy Intermediate Hives Verified 06/18/21 02:50 simvastatin Allergy Intermediate Rash Verified 06/18/21 02:50 lisinopril AdvReac Intermediate Cough Verified 06/18/21 02:50 Physical Examination Vital Signs Vital signs: Temp Pulse Resp BP Pulse Ox 97.9 F 98 H 19 122/64 98 06/18/21 01:57 06/18/21 15:32 06/18/21 15:32 06/18/21 15:32 06/18/21 15:32 General physical appearance General physical exam: well developed, well nourished, no distress and chronically ill Eyes Eye exam: PERRL ENT ENT exam: normal pinna, normal nares, normal mucosa and no hearing loss Head Head exam IM: Present atraumatic, normal inspection and normocephalic Neck Neck exam: trachea midline Cardiovascular Cardiovascular exam IM: Present normal rate and rhythm Respiratory Respiratory exam: clear to auscultation Abdomen Abdomen: Present soft and non tender; Absent distended Integumentary Integumentary: Present no rash Neurologic Neurologic: Present normal sensation Musculoskeletal Musculoskeletal: Present other (Laying in bed, not able to evaluate) Psychiatric Psychiatric: Present oriented to person, oriented to place, speech is normal and memory intact Additional Findings Additional exam: Severe bilateral lower extremity edema. Results Labs Result diagrams: 06/18/21 00:47 06/18/21 00:47 Labs: Abnormal lab results 06/18/21 06/18/21 06/18/21 Range/Units 00:47 00:47 00:47 WBC 15.5 H (4.5-11.0) K/mcL RBC 2.99 L (4.63-6.08) M/mcL Hgb 8.9 L (13.7-17.5) g/dL Hct 26.3 L (40.1-51.0) % RDW 14.7 H (11.5-14.5) % Neut % (Auto) 79.6 H (38.0-78.0) % Lymph % (Auto) 9.8 L (15.5-49.0) % Bennett # (Auto) 1.55 H (0.10-0.90) K/mcL Absolute Neutrophils 12.34 H (1.80-8.00) K/mcL Sodium 131 L (133-145) mmol/L Carbon Dioxide 17 L (22-30) mmol/L BUN 37 H (8-23) mg/dL Creatinine 1.9 H (0.7-1.2) mg/dL POC Creatinine 2.1 H (0.6-1.2) mg/dL Glucose 130 H (70-105) mg/dL Calcium 8.4 L (8.6-10.4) mg/dL Troponin T 0.04 H* (<0.03) ng/mL NT-Pro-B Natriuret Pep (<450.0) pg/mL Total Protein 5.8 L (5.9-8.4) gm/dL Albumin 2.6 L (3.2-5.2) gm/dL Albumin/Globulin Ratio 0.8 L (1.0-2.3) Urine Appearance (Clear) Urine Protein (Negative) mg/dL Urine Occult Blood (Negative) mg/dL Ur Leukocyte Esterase (Negative) /uL Urine RBC (0-3) /hpf Urine WBC (0-4) /hpf Amorphous Crystals (None) /hpf Urine Mucus (None) /hpf 06/18/21 06/18/21 06/18/21 Range/Units 01:34 07:14 07:14 WBC (4.5-11.0) K/mcL RBC (4.63-6.08) M/mcL Hgb (13.7-17.5) g/dL Hct (40.1-51.0) % RDW (11.5-14.5) % Neut % (Auto) (38.0-78.0) % Lymph % (Auto) (15.5-49.0) % Bennett # (Auto) (0.10-0.90) K/mcL Absolute Neutrophils (1.80-8.00) K/mcL Sodium (133-145) mmol/L Carbon Dioxide (22-30) mmol/L BUN (8-23) mg/dL Creatinine (0.7-1.2) mg/dL POC Creatinine (0.6-1.2) mg/dL Glucose (70-105) mg/dL Calcium (8.6-10.4) mg/dL Troponin T 0.05 H* (<0.03) ng/mL NT-Pro-B Natriuret Pep 1044.0 H (<450.0) pg/mL Total Protein (5.9-8.4) gm/dL Albumin (3.2-5.2) gm/dL Albumin/Globulin Ratio (1.0-2.3) Urine Appearance Hazy A (Clear) Urine Protein 100 A (Negative) mg/dL Urine Occult Blood >=1.0 A (Negative) mg/dL Ur Leukocyte Esterase 500 A (Negative) /uL Urine RBC 10 H (0-3) /hpf Urine WBC 116 H (0-4) /hpf Amorphous Crystals Few A (None) /hpf Urine Mucus Few A (None) /hpf Diabetes panel 06/18/21 Range/Units 00:47 Sodium 131 L (133-145) mmol/L Potassium 3.9 (3.3-5.1) mmol/L Chloride 102 (96-108) mmol/L Carbon Dioxide 17 L (22-30) mmol/L BUN 37 H (8-23) mg/dL Creatinine 1.9 H (0.7-1.2) mg/dL Glucose 130 H (70-105) mg/dL Calcium 8.4 L (8.6-10.4) mg/dL AST 10 (<40) U/L ALT 18 (<40) U/L Alkaline Phosphatase 73 (39-117) U/L Total Protein 5.8 L (5.9-8.4) gm/dL Albumin 2.6 L (3.2-5.2) gm/dL Calcium panel 06/18/21 Range/Units 00:47 Calcium 8.4 L (8.6-10.4) mg/dL Albumin 2.6 L (3.2-5.2) gm/dL Pituitary panel 06/18/21 Range/Units 00:47 Sodium 131 L (133-145) mmol/L Potassium 3.9 (3.3-5.1) mmol/L Chloride 102 (96-108) mmol/L Carbon Dioxide 17 L (22-30) mmol/L BUN 37 H (8-23) mg/dL Creatinine 1.9 H (0.7-1.2) mg/dL Glucose 130 H (70-105) mg/dL Calcium 8.4 L (8.6-10.4) mg/dL Adrenal panel 06/18/21 Range/Units 00:47 Sodium 131 L (133-145) mmol/L Potassium 3.9 (3.3-5.1) mmol/L Chloride 102 (96-108) mmol/L Carbon Dioxide 17 L (22-30) mmol/L BUN 37 H (8-23) mg/dL Creatinine 1.9 H (0.7-1.2) mg/dL Glucose 130 H (70-105) mg/dL Calcium 8.4 L (8.6-10.4) mg/dL Total Bilirubin 0.4 (0.1-1.0) mg/dL AST 10 (<40) U/L ALT 18 (<40) U/L Alkaline Phosphatase 73 (39-117) U/L Total Protein 5.8 L (5.9-8.4) gm/dL Albumin 2.6 L (3.2-5.2) gm/dL All other labs normal. Imaging CT scan - abdomen: report reviewed and image reviewed CT scan - chest: report reviewed and image reviewed CT scan - pelvis: report reviewed and image reviewed A/P Assessment and plan (1) Mass of urinary bladder: Status: Acute (2) Acute renal insufficiency: Status: Acute (3) Acute urinary retention: Status: Acute (4) Dependent edema: Status: Acute Narrative A/P Narrative: Jean Claude is an 81-year-old male who is being admitted to the hospital for possible sepsis. He also appears to have some degree of renal failure. He recently had an episode of urinary retention for which a Nice catheter was temporarily placed. The patient reports that 4 L of urine were drained and that the urine was clear the catheter was then removed. Laboratory work-up obtained today in our hospital shows a mildly elevated white blood cell count to 15.5. He has anemia with a hemoglobin and hematocrit of 8.923 respectively. BUN and creatinine are 37 and 1.9 respectively. Estimated GFR is 32. Troponins have also been tested and are mildly elevated. B-natriuretic peptide is 1044. CT of the chest abdomen and pelvis performed with oral but no IV contrast re veals a large 9 cm mass either involving or adjacent to the left wall of the urinary bladder. This causes some obstruction of the left distal ureter. There is mild left hydronephrosis. This hydronephrosis is not currently a major issue and is not likely to be related to his acute or chronic renal insufficiency. Because of the renal insufficiency is more likely to be due to either urinary retention and/or dehydration. Currently the patient is anticoagulated for a recent history of deep vein thro mbosis. I spoke with Dr. Nathan of the hospitalist service. I explained that simple diagnostic cystoscopy can be performed while the patient is on anticoagulation. I cannot however perform any type of resection of the possible bladder mass while the patient is on anticoagulation. Additionally if I look in and there is clear obstruction of the left ureter the patient would not be a candidate to have a left nephrostomy tube placed less he is also off of his anticoagulation. The patient denies having had prior prostatectomy, but does report having a portion of the prostate removed. He likely underwent transurethral resection of the prostate. I will compose that we obtain a PSA to evaluate for the possibility of prostate cancer. Differential diagnosis for the bladder mass would be a primary bladder cancer, metastatic prostate cancer, or possibly lymphoma. The hospitalist service will need to decide which of his issues is more pressing. If the issue that is more pressing is the bladder and the mild left hydronephrosis then anticoagulation should be stopped and we can discuss performing transurethral resection of bladder tumor and possible stent placement next week. If the patient cannot come off of his anticoagulation due to the risks of possible embolic event, then we will simply need to observe the bladder mass and hydronephrosis for the time being. In the meantime the patient should have a Nice catheter with urine output monitor he has significant bilateral lower extremity edema. Fluids will need to be managed. If the patient remains in the hospital next week and his anti coagulation has been stopped for minimum of 48 hours we can then discuss going to the operating room for cystoscopy and possible transurethral resection of bladder tumor and stent placement. Time Spent With Patient Time: Total time spent is greater than 50% in coordination of care (as documented) at patient's floor/unit and/or counseling patient: A total of 45 minutes was spent. Approximately 20 minutes were spent reviewing the patient's films and records. Approximately 10 minutes were spent in speaking with the hospitalist and the ER physician. Approximately 10 minutes were spent in direct patient contact. Approximately 10 minutes were spent in postvisit documentation. Total time spent with greater than 50% in coordination of care (as documented) at patient's floor/unit and/or counseling patient:: Greater than 35 minutes
[2021-06-18] MEDS ORDERED: LIDOCAINE JEL 2% 1 TUBE 5ML TOPICAL ONE (16:08)
[2021-06-18] MEDS ORDERED: ONDANSETRON 4 MG/2 ML VIAL IV PRN (18:32)
[2021-06-18] MEDS: 0.9 % SODIUM CHLORIDE 10 ML SYRINGE IV SCH ×2 (21:40)
[2021-06-18] MEDS: SENNOSIDES 1 TABLET PO SCH (21:41)
[2021-06-18 22:22] LABS: Hematocrit 30.6 % (40.1-51.0); Hemoglobin 10.2 g/dL (13.7-17.5); Mean Cell Volume 88.7 fL (80.0-100.0); Mean Corpuscular HGB Conc 33.3 g/dL (31.0-36.0); Mean Platelet Volume 9.9 fL (7.4-10.4); Platelet Count 353 K/mcL (140-440); RBC 3.45 M/mcL (4.63-6.08); Red Cell Distribution Width 14.5 % (11.5-14.5); WBC 13.3 K/mcL (4.5-11.0)
[2021-06-18 23:54] LABS: Lymphocytes % 5 % (15-49); Monocytes % (Manual) 7 % (1-12); Platelet Estimate NORMAL (Normal); RBC Morphology NORMAL (Normal); Segmented Neutrophils % 88 % (38-78)
[2021-06-19] MEDS: 0.9 % SODIUM CHLORIDE 10 ML SYRINGE IV SCH ×3 (04:27→20:26)
[2021-06-19 06:39] LABS: Hematocrit 26.9 % (40.1-51.0); Mean Cell Volume 87.9 fL (80.0-100.0); Mean Corpuscular HGB Conc 33.5 g/dL (31.0-36.0); Mean Platelet Volume 9.8 fL (7.4-10.4); Platelet Count 347 K/mcL (140-440); RBC 3.06 M/mcL (4.63-6.08); Red Cell Distribution Width 14.3 % (11.5-14.5); WBC 10.9 K/mcL (4.5-11.0)
[2021-06-19 07:06] LABS: ALT/SGPT 13 U/L (<40); AST/SGOT 11 U/L (<40); Albumin 2.5 gm/dL (3.2-5.2); Alkaline Phosphatase 70 U/L (39-117); Bilirubin,Direct < 0.2 mg/dL (0-0.3); Bilirubin,Total 0.3 mg/dL (0.1-1.0); Blood Urea Nitrogen 26 mg/dL (8-23); Calcium 8.5 mg/dL (8.6-10.4); Carbon Dioxide 22 mmol/L (22-30); Chloride 100 mmol/L (96-108); Globulin 2.4 gm/dL (2.2-3.7); Glomerular Filtration Rate 43; Glucose 88 mg/dL (70-105); Lactate Dehydrogenase 68 U/L (135-225); Phosphorous 3.4 mg/dL (2.5-4.5); Triglycerides 62 mg/dL (<150); Uric Acid 8.6 mg/dL (2.5-8.0)
[2021-06-19] MEDS ORDERED: MAGNESIUM SULFATE 2 GM/50 ML BAG IV ONE (07:22)
[2021-06-19] MEDS: VITAMIN D3 25 MCG TABLET PO SCH (07:56)
[2021-06-19] MEDS: PREGABALIN 75 MG CAPSULE PO SCH (07:57)
[2021-06-19] MEDS: TAMSULOSIN 0.4 MG CAPSULE PO SCH (07:57)
[2021-06-19] MEDS: amLODIPine 10 MG TABLET PO SCH (07:57)
[2021-06-19] MEDS: APIXABAN 5 MG TABLET PO SCH ×2 (07:57→20:26)
[2021-06-19] MEDS: ACETAMINOPHEN 325 MG TABLET PO PRN (07:57)
[2021-06-19] MEDS: cefTRIAXone 2 GM in DEXTROSE 5% IN WATER 50 ML IV SCH (07:58)
[2021-06-19] MEDS: FLUTICASONE PROPIONATE SPRAY.NAS NS SCH (07:58)
[2021-06-19] MEDS: SENNOSIDES 1 TABLET PO SCH ×2 (07:59→20:26)
[2021-06-19 08:42] LABS: Eosinophils % (Manual) 1 % (0-7); Lymphocytes % 7 % (15-49); Monocytes % (Manual) 6 % (1-12); Platelet Estimate NORMAL (Normal); RBC Morphology NORMAL (Normal); Segmented Neutrophils % 86 % (38-78)
[2021-06-19] MEDS ORDERED: amLODIPine 10 MG TABLET PO SCH (09:00)
--- NOTE | 2021-06-19 11:21 | Internal Med Progress Note ---
SUBJECTIVE Subjective Patient information: Note initiated : 06/19/21 at 11:10 am Service Date, if different from initiated Date: [] Patient: Jean Claude Clayton 81 y/o M admitted on 06/18/21 for Shortness of breath. Chief Complaint: [] Interval history: 81-year-old male with a history of hypertension, recently diagnosed left lower extremity DVT on Eliquis presented to an outside hospital ([facility]) with a chief complaint of bilateral lower extremity edema. Per report, the patient was initially found to be hypoxic and there was concern for abdominal pathology requiring a CT scan. Since the CT scan was not available, the patient was transported to the [facility] ED where he was found to have a large bladder mass partially obstructing the left ureter causing left-sided hydronephrosis. The patient had severe urinary retention, over 4 L was drained and ED. There was also concern for a UTI. The patient's hypoxia resolved. The patient also appears to be in right-sided heart failure with extensive bilateral lower extremity pitting edema. 06/19 Large volume urinary output after samson placed. Edema has improved significantly with auto diuresis and the patient is at risk of developing post obstruction diuresis, in that case we may to compensate with 1/2 NS until it resolves. Encourage the patient to drink plenty of fluid today. Renal function improving, will repeat Renal function panel later today to keep a close track of electrolytes. Urology following, ok with performing a cystoscopy while on anticoagulation. Repeat venous duplex yesterday showed a subocclusive thrombus in one of the paired the peroneal veins. Urine and blood cultures pending. Troponin improved consistent with type II AL. Physical exam Head: Atraumatic, normal inspection. Eyes: normal appearance, no scleral icterus. Neck: full ROM Respiratory: no respiratory distress. Cardiovascular: normal rate and rhythm, S1, S2. GI/Abdominal: soft, nontender, no guarding. : Samson catheter Extremities: improving bilateral lower extremity edema, full range of motion, nontender. Neurological: CN II-XII intact, intact motor, intact sensation. Psychiatric: normal mood. Skin: warm, normal color Constitutional Vitals: Vital Signs Temp Pulse Resp BP Pulse Ox 99.0 F 106 H 18 105/52 98 06/19/21 07:09 06/19/21 07:09 06/19/21 07:09 06/19/21 07:09 06/19/21 07:09 Period Temp Pulse Resp BP Sys/Urban Pulse Ox Last 24 Hr 98.6 F-99.5 F 86-110 14-25 105-131/52-89 93-100 Intake and Output 06/18/21 06/19/21 06/19/21 21:59 05:59 13:59 Intake Total 600 1140 Output Total 1150 2400 500 Balance -1150 -1800 640 Weight 94.801 kg Intake & Output: Intake & Output 06/18/21 06/19/21 06/19/21 21:59 05:59 13:59 Intake Total 600 1140 Output Total 1150 2400 500 Balance -1150 -1800 640 Weight 94.801 kg Intake: IV 100 Rocephin 2 gm In Dextrose 5% in 50 Water 50 ml @ 100 mls/hr IV Q24H [facility] Rx#:[id number] Oral 600 1040 Output: Urine Catheter Amount 1150 2400 500 Other: Meal tuna with crackers Breakfast Percent of Meal Consumed 100% 100% Urine Appearance Cloudy Sediment Sediment Straight Clear Urine Color Light [place] Pale Dark Yellow Straight Dark Yellow Urine Odor Strong OBJ DATA Labs CBC & Chem 7: 06/19/21 05:39 06/19/21 05:40 Labs: Abnormal Lab Results 06/19/21 06/19/21 06/19/21 07:36 05:40 05:39 WBC RBC 3.06 L Hgb 9.0 L Hct 26.9 L RDW Neut % (Auto) Lymph % (Auto) Edwards # (Auto) Seg Neutrophils % 86 H Lymphocytes % 7 L Absolute Neutrophils Sodium Carbon Dioxide BUN 26 H Creatinine 1.5 H POC Creatinine Glucose Uric Acid 8.6 H Calcium 8.5 L Magnesium 1.4 L Lactate Dehydrogenase 68 L Troponin T 0.03 H NT-Pro-B Natriuret Pep Total Protein 4.9 L Albumin 2.5 L Albumin/Globulin Ratio Urine Appearance Urine Protein Urine Occult Blood Ur Leukocyte Esterase Urine RBC Urine WBC Amorphous Crystals Urine Mucus 06/18/21 06/18/21 06/18/21 21:24 07:14 07:14 WBC 13.3 H RBC 3.45 L Hgb 10.2 L Hct 30.6 L RDW Neut % (Auto) Lymph % (Auto) Edwards # (Auto) Seg Neutrophils % 88 H Lymphocytes % 5 L Absolute Neutrophils Sodium Carbon Dioxide BUN Creatinine POC Creatinine Glucose Uric Acid Calcium Magnesium Lactate Dehydrogenase Troponin T 0.05 H* NT-Pro-B Natriuret Pep 1044.0 H Total Protein Albumin Albumin/Globulin Ratio Urine Appearance Urine Protein Urine Occult Blood Ur Leukocyte Esterase Urine RBC Urine WBC Amorphous Crystals Urine Mucus 06/18/21 06/18/21 06/18/21 01:34 00:47 00:47 WBC RBC Hgb Hct RDW Neut % (Auto) Lymph % (Auto) Edwards # (Auto) Seg Neutrophils % Lymphocytes % Absolute Neutrophils Sodium 131 L Carbon Dioxide 17 L BUN 37 H Creatinine 1.9 H POC Creatinine 2.1 H Glucose 130 H Uric Acid Calcium 8.4 L Magnesium Lactate Dehydrogenase Troponin T 0.04 H* NT-Pro-B Natriuret Pep Total Protein 5.8 L Albumin 2.6 L Albumin/Globulin Ratio 0.8 L Urine Appearance Hazy A Urine Protein 100 A Urine Occult Blood >=1.0 A Ur Leukocyte Esterase 500 A Urine RBC 10 H Urine WBC 116 H Amorphous Crystals Few A Urine Mucus Few A 06/18/21 00:47 WBC 15.5 H RBC 2.99 L Hgb 8.9 L Hct 26.3 L RDW 14.7 H Neut % (Auto) 79.6 H Lymph % (Auto) 9.8 L Edwards # (Auto) 1.55 H Seg Neutrophils % Lymphocytes % Absolute Neutrophils 12.34 H Sodium Carbon Dioxide BUN Creatinine POC Creatinine Glucose Uric Acid Calcium Magnesium Lactate Dehydrogenase Troponin T NT-Pro-B Natriuret Pep Total Protein Albumin Albumin/Globulin Ratio Urine Appearance Urine Protein Urine Occult Blood Ur Leukocyte Esterase Urine RBC Urine WBC Amorphous Crystals Urine Mucus Meds: Medications Acetaminophen (Acetaminophen 325 Mg Tablet) 650 mg PO Q6HP PRN; Protocol PRN Reason: Per Pain Protocol/Fever > 101 Last Admin: 06/19/21 07:57 Dose: 650 mg Documented by: Amlodipine Besylate (Amlodipine 10 Mg Tablet) 10 mg PO QDAY [facility] Last Admin: 06/19/21 07:57 Dose: 10 mg Documented by: Apixaban (Apixaban 5 Mg Tablet) 5 mg PO BID [facility] Last Admin: 06/19/21 07:57 Dose: 5 mg Documented by: Fluticasone Propionate (Fluticasone Propionate [place].Liu) 1 spray NS QDAY [facility] Last Admin: 06/19/21 07:58 Dose: Not Given Documented by: Ceftriaxone Sodium 2 gm/ (Dextrose) 50 mls @ 100 mls/hr IV Q24H [facility] Last Infusion: 06/19/21 08:34 Dose: Infused Documented by: Ondansetron HCl (Ondansetron 4 Mg/2 Ml Vial) 4 mg IV Q6HP PRN PRN Reason: Nausea And Vomiting Pregabalin (Pregabalin 75 Mg Capsule) 75 mg PO QDAY [facility] Last Admin: 06/19/21 07:57 Dose: 75 mg Documented by: Senna (Sennosides 1 Tablet) 2 tab PO BID [facility] Last Admin: 06/19/21 07:59 Dose: Not Given Documented by: Sodium Chloride (0.9 % Sodium Chloride 10 Ml Syringe) 10 ml IV Q8 [facility] Last Admin: 06/19/21 04:27 Dose: 10 ml Documented by: Tamsulosin HCl (Tamsulosin 0.4 Mg Capsule) 0.4 mg PO QDAY [facility] Last Admin: 06/19/21 07:57 Dose: 0.4 mg Documented by: Vitamin D (Vitamin D3 25 Mcg Tablet) 50 mcg PO DAILY [facility] Last Admin: 06/19/21 07:56 Dose: 50 mcg Documented by: A/P Narrative A/P Narrative: Assessment: 81-year-old male with a history of hypertension, recently diagnosed left lower extremity DVT on Eliquis presented to an outside hospital ([facility]) for worsening lower extremity and abdominal distention. A CT scan was not feasible at the outside hospital so the patient was transferred to the [facility] ED where a CT abdomen and pelvis without contrast showed a large bladder mass as well as mild left hydronephrosis and hydroureter. The patient was also found to have large volume urinary retention likely related to the bladder mass and an acute kidney injury. There is also concern for possible UTI. #Large bladder mass causing left hydronephrosis (mild) #Urinary retention likely secondary to bladder outlet obstruction s/p samson catheter #Acute kidney injury likely obstructive nephropathy #Concern for possible post obstruction diuresis #Possible UTI #Concern for possible right sided heart failure #Resolving type II AL #Left lower extremity DVT on Eliquis #Essential hypertension Plan -Ceftriaxone IV Q24 hrs for possible UTI. -Follow urine and blood cultures. -Place Samson catheter for urinary retention. -Monitor urine output for post obstructive diuresis, may need 1/2 NS if patient continues to auto diurese. -Follow renal function. -TTE results pending. -Continue home Eliquis BID and Flomax. -Hold home Norvasc, Diltiazem, Losartan, Hydrochlorothiazide. -Low sodium diet. -Urology following -PT and OT consult. -DVT ppx: On Eliquis. -Code status: Full -Disposition: TBD Time Spent With Patient Time: Total time spent is greater than 50% in coordination of care (as documented) at patient's floor/unit and/or counseling patient: QUALITY VTE Deep Vein Thrombosis/Pulmonary Embolism Present on Admission: Yes
--- NOTE | 2021-06-19 13:41 | Internal Med Progress Note ---
SUBJECTIVE Subjective Patient information: Note initiated : 06/19/21 at 1:34 pm Service Date, if different from initiated Date: [] Patient: Jean Claude Clayton 81 y/o M admitted on 06/18/21 for Shortness of breath. Chief Complaint: [] Interval history: 81-year-old male with a history of hypertension, recently diagnosed left lower extremity DVT on Eliquis presented to an outside hospital ([facility]) with a chief complaint of bilateral lower extremity edema. Per report, the patient was initially found to be hypoxic and there was concern for abdominal pathology requiring a CT scan. Since the CT scan was not available, the patient was transported to the [facility] ED where he was found to have a large bladder mass partially obstructing the left ureter causing left-sided hydronephrosis. The patient had severe urinary retention, over 4 L was drained and ED. There was also concern for a UTI. The patient's hypoxia resolved. The patient also appears to be in right-sided heart failure with extensive bilateral lower extremity pitting edema. 06/19 Large volume urinary output after samson placed. Edema has improved significantly with auto diuresis and the patient is at risk of developing post obstruction diuresis, in that case we may to compensate with 1/2 NS until it resolves. Encourage the patient to drink plenty of fluid today. Renal function improving, will repeat Renal function panel later today to keep a close track of electrolytes. Urology following, ok with performing a cystoscopy while on anticoagulation. Repeat venous duplex yesterday showed a subocclusive thrombus in one of the paired the peroneal veins. Urine and blood cultures pending. Troponin improved consistent with type II OK. 06/20 Constitutional Vitals: Vital Signs Temp Pulse Resp BP Pulse Ox 96.7 F L 92 H 18 95/62 97 06/19/21 11:42 06/19/21 11:42 06/19/21 11:42 06/19/21 11:42 06/19/21 11:42 Period Temp Pulse Resp BP Sys/Urban Pulse Ox Last 24 Hr 96.7 F-99.5 F 87-110 17-25 95-131/52-89 95-100 Intake and Output 06/18/21 06/19/21 06/19/21 21:59 05:59 13:59 Intake Total 600 1260 Output Total 1150 2400 650 Balance -1150 -1800 610 Weight 94.801 kg Intake & Output: Intake & Output 06/18/21 06/19/21 06/19/21 21:59 05:59 13:59 Intake Total 600 1260 Output Total 1150 2400 650 Balance -1150 -1800 610 Weight 94.801 kg Intake: IV 100 Rocephin 2 gm In Dextrose 5% in 50 Water 50 ml @ 100 mls/hr IV Q24H [facility] Rx#:[id number] Oral 600 1160 Output: Urine Catheter Amount 1150 2400 500 Void Amount 150 Other: Meal tuna with crackers Lunch Percent of Meal Consumed 100% 100% Urine Appearance Cloudy Sediment Sediment Straight Clear Urine Color Light [place] Pale Dark Yellow Straight Dark Yellow Urine Odor Strong Exam: General: Alert, Awake, No acute Distress Eyes/N/T: EOMI, Head/Neck: neck supple, CV: RRR, No murmurs, Pulm: Clear b/l, no wheezing/rhonchi/rales Abd: soft, nontender, +BS x4 Ext: no clubbing/cyanosis, b/l LE edema improving Neuro: Alert, no focal deficits, moves all extremities, Skin: warm/dry OBJ DATA Labs CBC & Chem 7: 06/19/21 05:39 06/19/21 05:40 Labs: Abnormal Lab Results 06/19/21 06/19/21 06/19/21 07:36 05:40 05:39 WBC RBC 3.06 L Hgb 9.0 L Hct 26.9 L RDW Neut % (Auto) Lymph % (Auto) [place] # (Auto) Seg Neutrophils % 86 H Lymphocytes % 7 L Absolute Neutrophils Sodium Carbon Dioxide BUN 26 H Creatinine 1.5 H POC Creatinine Glucose Uric Acid 8.6 H Calcium 8.5 L Magnesium 1.4 L Lactate Dehydrogenase 68 L Troponin T 0.03 H NT-Pro-B Natriuret Pep Total Protein 4.9 L Albumin 2.5 L Albumin/Globulin Ratio Urine Appearance Urine Protein Urine Occult Blood Ur Leukocyte Esterase Urine RBC Urine WBC Amorphous Crystals Urine Mucus 06/18/21 06/18/21 06/18/21 21:24 07:14 07:14 WBC 13.3 H RBC 3.45 L Hgb 10.2 L Hct 30.6 L RDW Neut % (Auto) Lymph % (Auto) [place] # (Auto) Seg Neutrophils % 88 H Lymphocytes % 5 L Absolute Neutrophils Sodium Carbon Dioxide BUN Creatinine POC Creatinine Glucose Uric Acid Calcium Magnesium Lactate Dehydrogenase Troponin T 0.05 H* NT-Pro-B Natriuret Pep 1044.0 H Total Protein Albumin Albumin/Globulin Ratio Urine Appearance Urine Protein Urine Occult Blood Ur Leukocyte Esterase Urine RBC Urine WBC Amorphous Crystals Urine Mucus 06/18/21 06/18/21 06/18/21 01:34 00:47 00:47 WBC RBC Hgb Hct RDW Neut % (Auto) Lymph % (Auto) [place] # (Auto) Seg Neutrophils % Lymphocytes % Absolute Neutrophils Sodium 131 L Carbon Dioxide 17 L BUN 37 H Creatinine 1.9 H POC Creatinine 2.1 H Glucose 130 H Uric Acid Calcium 8.4 L Magnesium Lactate Dehydrogenase Troponin T 0.04 H* NT-Pro-B Natriuret Pep Total Protein 5.8 L Albumin 2.6 L Albumin/Globulin Ratio 0.8 L Urine Appearance Hazy A Urine Protein 100 A Urine Occult Blood >=1.0 A Ur Leukocyte Esterase 500 A Urine RBC 10 H Urine WBC 116 H Amorphous Crystals Few A Urine Mucus Few A 06/18/21 00:47 WBC 15.5 H RBC 2.99 L Hgb 8.9 L Hct 26.3 L RDW 14.7 H Neut % (Auto) 79.6 H Lymph % (Auto) 9.8 L [place] # (Auto) 1.55 H Seg Neutrophils % Lymphocytes % Absolute Neutrophils 12.34 H Sodium Carbon Dioxide BUN Creatinine POC Creatinine Glucose Uric Acid Calcium Magnesium Lactate Dehydrogenase Troponin T NT-Pro-B Natriuret Pep Total Protein Albumin Albumin/Globulin Ratio Urine Appearance Urine Protein Urine Occult Blood Ur Leukocyte Esterase Urine RBC Urine WBC Amorphous Crystals Urine Mucus Meds: Medications Acetaminophen (Acetaminophen 325 Mg Tablet) 650 mg PO Q6HP PRN; Protocol PRN Reason: Per Pain Protocol/Fever > 101 Last Admin: 06/19/21 07:57 Dose: 650 mg Documented by: Amlodipine Besylate (Amlodipine 10 Mg Tablet) 10 mg PO QDAY [facility] Last Admin: 06/19/21 07:57 Dose: 10 mg Documented by: Apixaban (Apixaban 5 Mg Tablet) 5 mg PO BID [facility] Last Admin: 06/19/21 07:57 Dose: 5 mg Documented by: Fluticasone Propionate (Fluticasone Propionate [place].Liu) 1 spray NS QDAY [facility] Last Admin: 06/19/21 07:58 Dose: Not Given Documented by: Ceftriaxone Sodium 2 gm/ (Dextrose) 50 mls @ 100 mls/hr IV Q24H [facility] Last Infusion: 06/19/21 08:34 Dose: Infused Documented by: Ondansetron HCl (Ondansetron 4 Mg/2 Ml Vial) 4 mg IV Q6HP PRN PRN Reason: Nausea And Vomiting Pregabalin (Pregabalin 75 Mg Capsule) 75 mg PO QDAY [facility] Last Admin: 06/19/21 07:57 Dose: 75 mg Documented by: Senna (Sennosides 1 Tablet) 2 tab PO BID [facility] Last Admin: 06/19/21 07:59 Dose: Not Given Documented by: Sodium Chloride (0.9 % Sodium Chloride 10 Ml Syringe) 10 ml IV Q8 [facility] Last Admin: 06/19/21 12:58 Dose: 10 ml Documented by: Tamsulosin HCl (Tamsulosin 0.4 Mg Capsule) 0.4 mg PO QDAY [facility] Last Admin: 06/19/21 07:57 Dose: 0.4 mg Documented by: Vitamin D (Vitamin D3 25 Mcg Tablet) 50 mcg PO DAILY [facility] Last Admin: 06/19/21 07:56 Dose: 50 mcg Documented by: A/P Narrative A/P Narrative: A: #Large bladder mass causing left hydronephrosis (mild): #Urinary retention: likely 2/2 to bladder outlet obstruction s/p samson catheter #BELLA likely obstructive nephropathy: -improving #Concern for possible post obstruction diuresis #Possible UTI: -leukocytosis resolved #Concern for possible right sided heart failure: #Resolving type II OK: #Left lower extremity DVT on Eliquis: found recently outpt #Essential hypertension #Anemia: #Hypomag: Plan -Ceftriaxone IV Q24 hrs for possible UTI -Follow urine and blood cultures -Samson catheter placed for urinary retention -Urology following -Monitor urine output for post obstructive diuresis, may need 1/2 NS if patient continues to auto diurese. -TTE results pending. -Continue home Eliquis BID and Flomax. -Hold home Norvasc/Diltiazem/Losartan/HCTZ for low BP -PT/OT -ppx: On Eliquis Code status: Retail Route Supervisor Spent With Patient Time: Total time spent is greater than 50% in coordination of care (as documented) at patient's floor/unit and/or counseling patient: QUALITY VTE Deep Vein Thrombosis/Pulmonary Embolism Present on Admission: Yes
[2021-06-19 14:58] LABS: Albumin 2.5 gm/dL (3.2-5.2); Blood Urea Nitrogen 27 mg/dL (8-23); Calcium 8.5 mg/dL (8.6-10.4); Carbon Dioxide 25 mmol/L (22-30); Chloride 101 mmol/L (96-108); Glomerular Filtration Rate 47; Glucose 115 mg/dL (70-105); Phosphorous 3.2 mg/dL (2.5-4.5)
[2021-06-20] MEDS: 0.9 % SODIUM CHLORIDE 10 ML SYRINGE IV SCH ×3 (04:00→20:53)
[2021-06-20 07:30] LABS: ALT/SGPT 14 U/L (<40); AST/SGOT 14 U/L (<40); Albumin 2.5 gm/dL (3.2-5.2); Alkaline Phosphatase 65 U/L (39-117); Bilirubin,Direct < 0.2 mg/dL (0-0.3); Bilirubin,Total 0.2 mg/dL (0.1-1.0); Blood Urea Nitrogen 24 mg/dL (8-23); Calcium 8.4 mg/dL (8.6-10.4); Carbon Dioxide 21 mmol/L (22-30); Chloride 104 mmol/L (96-108); Globulin 2.5 gm/dL (2.2-3.7); Glomerular Filtration Rate 57; Glucose 80 mg/dL (70-105); Lactate Dehydrogenase 97 U/L (135-225); Phosphorous 3.3 mg/dL (2.5-4.5); Triglycerides 65 mg/dL (<150); Uric Acid 8.8 mg/dL (2.5-8.0)
--- NOTE | 2021-06-20 07:54 | Internal Med Progress Note ---
SUBJECTIVE Subjective Patient information: Note initiated : 06/20/21 at 7:52 am Service Date, if different from initiated Date: [] Patient: Jean Claude Clayton 81 y/o M admitted on 06/18/21 for Shortness of breath. Chief Complaint: [] Interval history: 81-year-old male with a history of hypertension, recently diagnosed left lower extremity DVT on Eliquis presented to an outside hospital ([facility]) with a chief complaint of bilateral lower extremity edema. Per report, the patient was initially found to be hypoxic and there was concern for abdominal pathology requiring a CT scan. Since the CT scan was not available, the patient was transported to the [facility] ED where he was found to have a large bladder mass partially obstructing the left ureter causing left-sided hydronephrosis. The patient had severe urinary retention, over 4 L was drained and ED. There was also concern for a UTI. The patient's hypoxia resolved. The patient also appears to be in right-sided heart failure with extensive bilateral lower extremity pitting edema. 06/19 Large volume urinary output after samson placed. Edema has improved significantly with auto diuresis and the patient is at risk of developing post obstruction diuresis, in that case we may to compensate with 1/2 NS until it resolves. Encourage the patient to drink plenty of fluid today. Renal function improving, will repeat Renal function panel later today to keep a close track of electrolytes. Urology following, ok with performing a cystoscopy while on anticoagulation. Repeat venous duplex yesterday showed a subocclusive thrombus in one of the paired the peroneal veins. Urine and blood cultures pending. Troponin improved consistent with type II MT. 06/20 No overnight event or new complaints. Renal function improved. Mag low. Potassium low normal. Review of Systems: denies headache/fever/chills/nausea/vomiting/chest or abdominal pain/cough/dyspnea/diarrhea. Otherwise see above. Constitutional Vitals: Vital Signs Temp Pulse Resp BP Pulse Ox 99.4 F H 91 H 20 125/65 97 06/20/21 03:45 06/20/21 03:45 06/20/21 03:45 06/20/21 03:45 06/20/21 03:45 Period Temp Pulse Resp BP Sys/Urban Pulse Ox Last 24 Hr 96.7 F-99.5 F 83-94 17-20 93-125/54-65 94-98 Intake and Output 06/19/21 06/20/21 06/20/21 21:59 05:59 13:59 Intake Total 1025 500 Output Total 1350 1200 Balance -325 -700 Weight 91.881 kg Intake & Output: Intake & Output 06/19/21 06/20/21 06/20/21 21:59 05:59 13:59 Intake Total 1025 500 Output Total 1350 1200 Balance -325 -700 Weight 91.881 kg Intake: Oral 1025 500 Output: Urine Catheter Amount 1350 1200 Other: Meal Dinner Percent of Meal Consumed 100% Urine Appearance Clear Sediment Urine Color Dark Yellow Dark Yellow Exam: General: Alert, Awake, No acute Distress Eyes/N/T: EOMI, Head/Neck: neck supple, CV: RRR, No murmurs, Pulm: Clear b/l, no wheezing/rhonchi/rales Abd: soft, nontender, +BS x4 Ext: no clubbing/cyanosis, b/l 2+ LE edema improving Neuro: Alert, no focal deficits, moves all extremities, Skin: warm/dry OBJ DATA Labs CBC & Chem 7: 06/19/21 05:39 06/20/21 05:00 Labs: Abnormal Lab Results 06/20/21 06/19/21 06/19/21 05:00 14:07 07:36 WBC RBC Hgb Hct RDW Neut % (Auto) Lymph % (Auto) [place] # (Auto) Seg Neutrophils % Lymphocytes % Absolute Neutrophils Sodium Potassium 3.2 L Carbon Dioxide 21 L BUN 24 H 27 H Creatinine 1.4 H POC Creatinine Glucose 115 H Uric Acid 8.8 H Calcium 8.4 L 8.5 L Magnesium 1.4 L Lactate Dehydrogenase 97 L Troponin T 0.03 H NT-Pro-B Natriuret Pep Total Protein 5.0 L Albumin 2.5 L 2.5 L Albumin/Globulin Ratio Urine Appearance Urine Protein Urine Occult Blood Ur Leukocyte Esterase Urine RBC Urine WBC Amorphous Crystals Urine Mucus 06/19/21 06/19/21 06/18/21 05:40 05:39 21:24 WBC 13.3 H RBC 3.06 L 3.45 L Hgb 9.0 L 10.2 L Hct 26.9 L 30.6 L RDW Neut % (Auto) Lymph % (Auto) [place] # (Auto) Seg Neutrophils % 86 H 88 H Lymphocytes % 7 L 5 L Absolute Neutrophils Sodium Potassium Carbon Dioxide BUN 26 H Creatinine 1.5 H POC Creatinine Glucose Uric Acid 8.6 H Calcium 8.5 L Magnesium 1.4 L Lactate Dehydrogenase 68 L Troponin T NT-Pro-B Natriuret Pep Total Protein 4.9 L Albumin 2.5 L Albumin/Globulin Ratio Urine Appearance Urine Protein Urine Occult Blood Ur Leukocyte Esterase Urine RBC Urine WBC Amorphous Crystals Urine Mucus 06/18/21 06/18/21 06/18/21 07:14 07:14 01:34 WBC RBC Hgb Hct RDW Neut % (Auto) Lymph % (Auto) [place] # (Auto) Seg Neutrophils % Lymphocytes % Absolute Neutrophils Sodium Potassium Carbon Dioxide BUN Creatinine POC Creatinine Glucose Uric Acid Calcium Magnesium Lactate Dehydrogenase Troponin T 0.05 H* NT-Pro-B Natriuret Pep 1044.0 H Total Protein Albumin Albumin/Globulin Ratio Urine Appearance Hazy A Urine Protein 100 A Urine Occult Blood >=1.0 A Ur Leukocyte Esterase 500 A Urine RBC 10 H Urine WBC 116 H Amorphous Crystals Few A Urine Mucus Few A 06/18/21 06/18/21 06/18/21 00:47 00:47 00:47 WBC 15.5 H RBC 2.99 L Hgb 8.9 L Hct 26.3 L RDW 14.7 H Neut % (Auto) 79.6 H Lymph % (Auto) 9.8 L [place] # (Auto) 1.55 H Seg Neutrophils % Lymphocytes % Absolute Neutrophils 12.34 H Sodium 131 L Potassium Carbon Dioxide 17 L BUN 37 H Creatinine 1.9 H POC Creatinine 2.1 H Glucose 130 H Uric Acid Calcium 8.4 L Magnesium Lactate Dehydrogenase Troponin T 0.04 H* NT-Pro-B Natriuret Pep Total Protein 5.8 L Albumin 2.6 L Albumin/Globulin Ratio 0.8 L Urine Appearance Urine Protein Urine Occult Blood Ur Leukocyte Esterase Urine RBC Urine WBC Amorphous Crystals Urine Mucus Meds: Medications Acetaminophen (Acetaminophen 325 Mg Tablet) 650 mg PO Q6HP PRN; Protocol PRN Reason: Per Pain Protocol/Fever > 101 Last Admin: 06/19/21 07:57 Dose: 650 mg Documented by: Amlodipine Besylate (Amlodipine 10 Mg Tablet) 10 mg PO QDAY [facility] Last Admin: 06/19/21 07:57 Dose: 10 mg Documented by: Apixaban (Apixaban 5 Mg Tablet) 5 mg PO BID [facility] Last Admin: 06/19/21 20:26 Dose: 5 mg Documented by: Fluticasone Propionate (Fluticasone Propionate [place].Liu) 1 spray NS QDAY [facility] Last Admin: 06/19/21 07:58 Dose: Not Given Documented by: Ceftriaxone Sodium 2 gm/ (Dextrose) 50 mls @ 100 mls/hr IV Q24H [facility] Last Infusion: 06/19/21 08:34 Dose: Infused Documented by: Ondansetron HCl (Ondansetron 4 Mg/2 Ml Vial) 4 mg IV Q6HP PRN PRN Reason: Nausea And Vomiting Pregabalin (Pregabalin 75 Mg Capsule) 75 mg PO QDAY [facility] Last Admin: 06/19/21 07:57 Dose: 75 mg Documented by: Senna (Sennosides 1 Tablet) 2 tab PO BID [facility] Last Admin: 06/19/21 20:26 Dose: 2 tab Documented by: Sodium Chloride (0.9 % Sodium Chloride 10 Ml Syringe) 10 ml IV Q8 [facility] Last Admin: 06/20/21 04:00 Dose: 10 ml Documented by: Tamsulosin HCl (Tamsulosin 0.4 Mg Capsule) 0.4 mg PO QDAY [facility] Last Admin: 06/19/21 07:57 Dose: 0.4 mg Documented by: Vitamin D (Vitamin D3 25 Mcg Tablet) 50 mcg PO DAILY [facility] Last Admin: 06/19/21 07:56 Dose: 50 mcg Documented by: A/P Narrative A/P Narrative: A: #Large bladder mass causing left hydronephrosis (mild): #Urinary retention: likely 2/2 to bladder outlet obstruction s/p samson catheter #Concern for possible post obstruction diuresis: #BELLA likely obstructive nephropathy: -improving #Possible UTI: -leukocytosis resolved #Concern for possible right sided heart failure: echo uninterpretable > "LV function probably normal" #Resolving type II MT: #Left lower extremity DVT on Eliquis: found recently outpt #HTN: #Anemia: #Hypomag: Plan -Ceftriaxone pending UC/BC -Samson catheter placed for urinary retention -Urology following -Monitor urine output for post obstructive diuresis, may need 1/2 NS if patient continues to auto diurese. -cont home dilt, hold home Norvasc/Losartan/HCTZ for low BP -Replace electrolytes -PT/OT -TEDS -ppx: On Eliquis Code status: Multimedia Specialist Spent With Patient Time: Total time spent is greater than 50% in coordination of care (as documented) at patient's floor/unit and/or counseling patient: QUALITY VTE Deep Vein Thrombosis/Pulmonary Embolism Present on Admission: Yes
[2021-06-20] MEDS ORDERED: POTASSIUM CHLORIDE 20 MEQ TABLET PO ONE (07:55)
[2021-06-20] MEDS ORDERED: MAGNESIUM SULFATE 2 GM/50 ML BAG IV ONE (07:55)
[2021-06-20] MEDS: PREGABALIN 75 MG CAPSULE PO SCH (07:56)
[2021-06-20] MEDS: TAMSULOSIN 0.4 MG CAPSULE PO SCH (07:56)
[2021-06-20] MEDS: APIXABAN 5 MG TABLET PO SCH ×2 (07:56→20:53)
[2021-06-20] MEDS: VITAMIN D3 25 MCG TABLET PO SCH (07:56)
[2021-06-20] MEDS: SENNOSIDES 1 TABLET PO SCH ×2 (07:57→20:53)
[2021-06-20] MEDS: ACETAMINOPHEN 325 MG TABLET PO PRN (07:57)
[2021-06-20] MEDS: amLODIPine 10 MG TABLET PO SCH (07:57)
[2021-06-20] MEDS: FLUTICASONE PROPIONATE SPRAY.NAS NS SCH (07:57)
[2021-06-20] MEDS: DILTIAZEM 120 MG CAP.XL.24H PO SCH (08:19)
[2021-06-20] MEDS: cefTRIAXone 2 GM in DEXTROSE 5% IN WATER 50 ML IV SCH (08:37)
--- NOTE | 2021-06-20 16:01 | Discharge Summary ---
Discharge Provider Provider Patient information: Note initiated : 06/20/21 at 3:58 pm Service Date, if different from initiated Date: [] Patient: Jean Claude Clayton 81 y/o M admitted on 06/18/21 for Shortness of breath. Chief Complaint: [] Date of admission: 06/18/21 18:10 Discharge date: 06/21/21 Primary care physician: THAIS Deluna Consults: 06/18/21 Consult to Physician [CONS] Stat Comment: Consulting Provider: Dominguez Gomez Reason For Exam: Physician to Consult Consult to Physician [CONS] Stat Comment: Consulting Provider: Arturo Nathan Reason For Exam: Physician to Consult 06/18/21 18:32 Consult to Physician [CONS] Stat Comment: Consulting Provider: Dominguez Gomez Reason For Exam: Physician to Consult Discharge Meds Discharge Medications Home Medications apixaban 5 mg tablet (Eliquis) 5 tab PO QDAY 06/18/21 [History Confirmed 06/18/21 Last Taken Unknown] cholecalciferol (vitamin D3) 50 mcg (2,000 unit) capsule (Vitamin D3) 50 mcg PO QDAY 06/18/21 [History Confirmed 06/18/21 Last Taken Unknown] diltiazem HCl 120 mg capsule,extended release 24 hr 1 cap PO QDAY 06/18/21 [History Confirmed 06/18/21 Last Taken Unknown] fluticasone propionate 50 mcg/actuation nasal spray,suspension 1 spray INTRANASAL QDAY 06/18/21 [History Confirmed 06/18/21 Last Taken Unknown] folic acid 1,000 mg DAILY 06/18/21 [History Confirmed 06/18/21 Last Taken Unknown] ondansetron 4 mg disintegrating tablet 4 mg PO Q6H 06/18/21 [History Confirmed 06/18/21 Last Taken Unknown] potassium chloride 20 mEq tablet,extended release(part/cryst) (Klor-Con M) 1 tab PO QDAY 06/18/21 [History Confirmed 06/18/21 Last Taken Unknown] pregabalin 75 mg capsule 1 cap PO QDAY 06/18/21 [History Confirmed 06/18/21 Last Taken Unknown] tamsulosin 0.4 mg capsule 1 cap PO QDAY 06/18/21 [History Confirmed 06/18/21 L ast Taken Unknown] hydrochlorothiazide 12.5 mg tablet 12.5 mg PO QAM #30 tab 06/21/21 [Rx Last Taken Unknown] COURSE Hospital Course Hospital course: Interval history: 81-year-old male with a history of hypertension, recently diagnosed left lower extremity DVT on Eliquis presented to an outside hospital ([facility]) with a chief complaint of bilateral lower extremity edema. Per report, the patient was initially found to be hypoxic and there was concern for abdominal pathology requiring a CT scan. Since the CT scan was not available, the patient was transported to the [facility] ED where he was found to have a large bladder mass partially obstructing the left ureter causing left-sided hydro nephrosis. The patient had severe urinary retention, over 4 L was drained and ED. There was also concern for a UTI. The patient's hypoxia resolved. The patient also appears to be in right-sided heart failure with extensive bilateral lower extremity pitting edema. 06/19 Large volume urinary output after samson placed. Edema has improved significantly with auto diuresis and the patient is at risk of developing post obstruction diuresis, in that case we may to compensate with 1/2 NS until it resolves. Encourage the patient to drink plenty of fluid today. Renal function improving, will repeat Renal function panel later today to keep a close track of electrolytes. Urology following, ok with performing a cystoscopy while on anticoagulation. Repeat venous duplex yesterday showed a subocclusive thrombus in one of the paired the peroneal veins. Urine and blood cultures pending. Troponin improved consistent with type II ID. 06/20 No overnight event or new complaints. Renal function improved. Mag low. Potassium low normal. 06/21 No overnight event or new complaints. Patient hoping to go home today. A: #Large bladder mass causing left hydronephrosis (mild): #Urinary retention: likely 2/2 to bladder outlet obstruction s/p samson catheter #Concern for possible post obstruction diuresis: #BELLA likely obstructive nephropathy: -improving #Possible UTI: UC no growth -leukocytosis resolved #Concern for possible right sided heart failure: echo uninterpretable > "LV function probably normal" #Resolving type II ID: #Left lower extremity DVT on Eliquis: found recently outpt #HTN: #Anemia: #Hypomag: Plan -Abx -Samson catheter placed for urinary retention, f/u with Urology -cont home dilt, stopped home Norvasc/ARB for peripheral edema and low BP Discharge diagnosis: Urinary retention secondary to bladder outlet obstruction bladder mass Secondary discharge diagnosis: BELLA type II ID lower extremity DVT hypertension anemia hypomanic Time Spent with Patient Time attestation: Total time spent providing and/or coordinating discharge services: Time spent: Greater than 30 minutes EXAM Constitutional Vitals: Temp Pulse Resp BP Pulse Ox 96.8 F L 83 20 122/67 97 06/20/21 15:26 06/20/21 15:26 06/20/21 15:26 06/20/21 15:26 06/20/21 15:26 Discharge Data Data Completed and Pending Labs on day of discharge: Labs from last 24 hours 06/20/21 05:00 Sodium 138 Potassium 3.2 L Chloride 104 Carbon Dioxide 21 L Anion Gap 13.0 BUN 24 H Creatinine 1.2 GFR Calculation 57 Glucose 80 Uric Acid 8.8 H Calcium 8.4 L Phosphorus 3.3 Magnesium 1.4 L Total Bilirubin 0.2 Direct Bilirubin < 0.2 GGT 16 AST 14 ALT 14 Alkaline Phosphatase 65 Lactate Dehydrogenase 97 L Total Protein 5.0 L Albumin 2.5 L Globulin 2.5 Albumin/Globulin Ratio 1.0 Triglycerides 65 Preliminary micro results at discharge 06/18/21 01:54 Blood Culture - Preliminary Blood 06/18/21 01:50 Blood Culture - Preliminary Blood Discharge Plan Patient/Caregiver Discharge Instructions Activity: increase activity as tolerated Diet: Regular Diet Activity Restrictions/Additional Instructions: Samson to remain in place until seen by urology. Monitor blood pressure twice daily, keep a log and bring to PCP. Prescriptions: New hydrochlorothiazide 12.5 mg tablet 12.5 mg PO QAM Qty: 30 0RF Continued potassium chloride [Klor-Con M20] 20 mEq tablet,ER particles/crystals 1 tab PO QDAY 0RF tamsulosin 0.4 mg capsule 1 cap PO QDAY 0RF diltiazem HCl 120 mg capsule,extended release 24hr 1 cap PO QDAY 0RF ondansetron 4 mg Tablet,Disintegrating 4 mg PO Q6H 0RF fluticasone propionate 50 mcg/actuation [place],Suspension 1 spray INTRANASAL QDAY 0RF Rx Instructions: administer into each nostril pregabalin 75 mg capsule 1 cap PO QDAY 0RF cholecalciferol (vitamin D3) [Vitamin D3] 50 mcg (2,000 unit) Capsule 50 mcg PO QDAY 0RF Eliquis 5 mg tablet 5 tab PO QDAY 0RF folic acid capsule 1,000 mg DAILY 0RF Discontinued losartan-hydrochlorothiazide 100-25 mg tablet 1 tab PO QDAY 0RF amlodipine 10 mg tablet 1 tab PO QDAY 0RF nitrofurantoin monohyd/m-cryst 100 mg capsule 1 cap PO BID 0RF Follow Up Plan Follow up with: Dominguez Gomez MD [Physician] - Debby Aranda ARNP [Primary Care Provider] - Patient Disposition: Home, Self-Care Prognosis: Undetermined Overall status at discharge: patient is progressing back to baseline Discharge Orders: Discharge Order (Routine); Ordered 06/21/21 [facility]/Pulmonary Embolism Present on Admission: Yes
[2021-06-21] MEDS: 0.9 % SODIUM CHLORIDE 10 ML SYRINGE IV SCH ×2 (04:34→12:08)
[2021-06-21 08:09] LABS: ALT/SGPT 22 U/L (<40); AST/SGOT 21 U/L (<40); Albumin 2.4 gm/dL (3.2-5.2); Alkaline Phosphatase 69 U/L (39-117); Bilirubin,Direct < 0.2 mg/dL (0-0.3); Bilirubin,Total 0.2 mg/dL (0.1-1.0); Blood Urea Nitrogen 20 mg/dL (8-23); Calcium 8.2 mg/dL (8.6-10.4); Carbon Dioxide 25 mmol/L (22-30); Chloride 102 mmol/L (96-108); Globulin 2.4 gm/dL (2.2-3.7); Glomerular Filtration Rate 71; Glucose 80 mg/dL (70-105); Lactate Dehydrogenase 65 U/L (135-225); Phosphorous 3.3 mg/dL (2.5-4.5); Triglycerides 53 mg/dL (<150); Uric Acid 7.4 mg/dL (2.5-8.0)
[2021-06-21] MEDS: cefTRIAXone 2 GM in DEXTROSE 5% IN WATER 50 ML IV SCH (08:52)
[2021-06-21] MEDS: VITAMIN D3 25 MCG TABLET PO SCH (08:52)
[2021-06-21] MEDS: DILTIAZEM 120 MG CAP.XL.24H PO SCH (08:53)
[2021-06-21] MEDS: FLUTICASONE PROPIONATE SPRAY.NAS NS SCH (08:53)
[2021-06-21] MEDS: PREGABALIN 75 MG CAPSULE PO SCH (08:53)
[2021-06-21] MEDS: APIXABAN 5 MG TABLET PO SCH (08:53)
[2021-06-21] MEDS: TAMSULOSIN 0.4 MG CAPSULE PO SCH (08:53)
[2021-06-21] MEDS: SENNOSIDES 1 TABLET PO SCH (08:53)
[2021-06-21] MEDS ORDERED: MAGNESIUM SULFATE 2 GM/50 ML BAG IV ONE (09:02)
== END 2021-06-21 13:00 | disposition home or self-care (01) | DRG 686 ==
LOC: ED 23:46 → ICU 06-18 18:10
PROVIDERS: ADMIT Internal Medicine; ATTEND Internal Medicine

== ENCOUNTER 2021-08-14 18:36 | Inpatient (IN) ==
[2021-08-14] MEDS ORDERED: IOPAMIDOL 100 ML BOTTLE IV ONE (18:37)
[2021-08-14 19:49] LABS: Basophils # (Auto) 0.09 K/mcL (0.00-0.30); Basophils % (Auto) 0.6 % (0.0-2.0); Eosinophils # (Auto) 0.21 K/mcL (0.00-0.70); Eosinophils % (Auto) 1.4 % (0.0-7.0); Hematocrit 36.6 % (40.1-51.0); Hemoglobin 11.7 g/dL (13.7-17.5); Lymphocytes # (Auto) 2.05 K/mcL (1.50-4.80); Lymphocytes % (Auto) 13.3 % (15.5-49.0); Mean Cell Volume 91.3 fL (80.0-100.0); Mean Platelet Volume 10.4 fL (7.4-10.4); Monocytes # (Auto) 1.32 K/mcL (0.10-0.90); Monocytes % (Auto) 8.6 % (1.0-12.0); Neutrophils % (Auto) 76.1 % (38.0-78.0); Platelet Count 553 K/mcL (140-440); RBC 4.01 M/mcL (4.63-6.08); WBC 15.4 K/mcL (4.5-11.0)
[2021-08-14] MEDS ORDERED: 0.9 % SODIUM CHLORIDE 1,000 ML IV ONE ×2 (19:59→20:52)
[2021-08-14] MEDS ORDERED: PIPERACILLIN SODIUM/TAZOBACTAM 4.5 GM in DEXTROSE 5% IN WATER 50 ML IV ONE (20:00)
[2021-08-14 20:08] LABS: ALT/SGPT 22 U/L (<40); AST/SGOT 13 U/L (<40); Albumin 3.3 gm/dL (3.2-5.2); Albumin/Globulin Ratio 0.8 (1.0-2.3); Alkaline Phosphatase 80 U/L (39-117); Bilirubin,Total 0.4 mg/dL (0.1-1.0); Blood Urea Nitrogen 12 mg/dL (8-23); Calcium 12.4 mg/dL (8.6-10.4); Carbon Dioxide 22 mmol/L (22-30); Chloride 98 mmol/L (96-108); Globulin 3.9 gm/dL (2.2-3.7); Glomerular Filtration Rate 63; Glucose 110 mg/dL (70-105)
[2021-08-14 20:18] LABS: Partial Thromboplastin Time 40.5 sec (20.0-37.0)
[2021-08-14 20:19] LABS: INR 1.4 (0.9-1.1); Prothrombin Time 18.2 sec (11.9-14.5)
--- NOTE | 2021-08-14 20:50 | Emergency Department Note ---
HPI General Chief complaint: Urogenital-Male Stated complaint: UTI Time Seen by Provider: 08/14/21 18:49 Source: patient Mode of arrival: ambulatory Limitations: no limitations History of Present Illness HPI Narrative: 81-year-old male recently diagnosed with atrial fibrillation DVT of the left lower extremity on Eliquis, bladder mass follows with Dr. Gomez as an outpatient scheduled for cystoscopy biopsy September 08 with an indwelling Nice catheter that was changed out by visiting home health nurse on Tuesday started on Cipro twice daily on August 06 presents to the emergency department with daughter who is his primary caregiver with failure to thrive. Over the last 3 months patient has not eaten decreased fluid intake. No formed bowel movement in a month, daughter states a couple small loose thin stools. Is still passing gas. Decreased urine output. No nausea vomiting. No fevers or chills. No cough. Complains of generalized weakness fatigue back hip pain. No chest pain shortness of breath. Daughter also states that he has been having intermittent episodes of confusion blurry vision since being started on the Cipro. She feels as though the primary care doctor is not paying close attention to her father's declining health and so comes to the ER for further evaluation and management Related Data Home Medications Medication Instructions Recorded Confirmed apixaban 5 mg tablet (Eliquis) 5 tab PO QDAY 06/18/21 08/12/21 folic acid 1,000 mg DAILY 06/18/21 08/12/21 pregabalin 75 mg capsule 1 cap PO QDAY 06/18/21 08/12/21 tamsulosin 0.4 mg capsule 1 cap PO QDAY 06/18/21 08/12/21 ciprofloxacin HCl 500 mg tablet 500 mg PO BID 08/12/21 08/12/21 digoxin 125 mcg (0.125 mg) tablet 125 mcg PO QDAY 08/12/21 08/12/21 midodrine 5 mg tablet 5 mg PO TID 08/12/21 08/12/21 apixaban 5 mg tablet (Eliquis) 1 tab PO BID 08/14/21 08/14/21 Allergies Allergy/AdvReac Type Severity Reaction Status Date / Time lovastatin Allergy Intermediate Hives Verified 08/12/21 13:53 simvastatin Allergy Intermediate Rash Verified 08/12/21 13:53 lisinopril AdvReac Intermediate Cough Verified 08/12/21 13:53 Review of Systems ROS ROS Narrative: 10 point review of system is otherwise negative except as mentioned in HPI. PFSH Narrative Patient History Narrative: Narrative: Medical/Surgical/Family History All Active Problems (Updated 07/09/21 @ 13:53 by Dominguez Gomez MD) Hypertension (Chronic) Influenza (Chronic) UTI (urinary tract infection) (Chronic) Mass of urinary bladder (Chronic) Acute renal insufficiency (Chronic) Anemia (Chronic) Acute urinary retention (Chronic) Acute respiratory insufficiency (Chronic) Infection, systemic (Chronic) Acute hyponatremia (Chronic) Cholelithiasis (Chronic) Dependent edema (Chronic) Nice catheter in place (Chronic) Atrial fibrillation (Chronic) DVT (deep venous thrombosis) (Chronic) Folic acid deficiency (Chronic) Traumatic injury (Chronic) Hyperlipidemia (Chronic) Vitamin D deficiency (Chronic) Edema of right lower extremity (Chronic) Difficulty urinating (Chronic) Hypokalemia (Chronic) Anticoagulant long-term use (Acute) Bladder stone (Acute) Medical History Acute hyponatremia Acute renal insufficiency Acute respiratory insufficiency Acute urinary retention Anemia Atrial fibrillation Cholelithiasis Dependent edema Difficulty urinating DVT (deep venous thrombosis) Edema of right lower extremity Nice catheter in place Folic acid deficiency Hyperlipidemia Hypertension Hypokalemia Infection, systemic Influenza Mass of urinary bladder Traumatic injury UTI (urinary tract infection) Vitamin D deficiency Surgical History History of prostate surgery (~1999) Family History Mother CKD (chronic kidney disease) Hypertensive disorder Sister Disorder of thyroid gland Brother Pulmonary thromboembolism Social History Smoking Status: Former smoker Alcohol Intake Frequency: former alcohol drinker Substance Use: does not use Exam Narrative Narrative: (Please note that portions of this note may have been completed with a voice recognition program. Efforts were made to edit the dictations but occasionally words are mis-transcribed) CONSTITUTIONAL: elderly male 63 kg. [place] Resting comfortably. Not in acute distress. Non toxic. Awake alert and oriented x3. Cooperative, follows commands. HEAD: Normocephalic. Atraumatic. EYE: EOMI PERRL ENT: No drooling stridor. MM dry NECK: Supple. Full range of motion. Trachea midline CARDIOVASCULAR: Adequate peripheral perfusion. S1-S2. Irregularly irregulartachycardic at 103 bpm. No murmurs rubs gallops. No JVD. Compression stockings below the knee are in place. Mild nonpitting ankle swelling bilaterally. +2 radial pulses bilaterally. PULMONARY: Nonlabored. Speaking full sentences. Clear to auscultation bilaterally. No rhonchi wheeze or crackles. ABDOMINAL: Soft. Nondistended. Nontender. Positive bowel sounds. Indwelling Nice catheter. Approximately 50 cc of urine EXTREMITIES: No gross deformities. Moves all 4 extremities with good strength and tone. SKIN: Warm and dry. No rash. No petechiae. NEUROLOGY: Sensation is intact. No gross focal deficits. GCS of 15 General Limitations: no limitations Course Vital Signs Vital signs: Vital Signs Temperature 36.5 C 08/14/21 18:37 Pulse Rate 92 H 08/14/21 18:37 Respiratory Rate 18 08/14/21 18:37 Blood Pressure 111/66 08/14/21 18:37 Pulse Oximetry (%) 91 08/14/21 18:37 Temperature 36.5 C 08/14/21 18:37 Pulse Rate 102 H 08/14/21 20:31 Respiratory Rate 21 08/14/21 21:12 Blood Pressure 121/102 08/14/21 21:02 Pulse Oximetry (%) 100 08/14/21 20:31 MDM MDM Narrative Medical decision making narrative: Differential diagnosis includes urosepsis failure to thrive acute renal failure electrolyte abnormality UTI pyelonephritis CVA etc. Placed on monitor pulse ox. IV fluid hydration. Labs have been sent culture lactic. White count did return elevated at 15,000 with a lactic of 2.6. Additional liter bolus with Zosyn ordered concern for failed outpatient UTI. twelve-lead EKG per ED MD interpretation does show atrial fibrillation RVR at 103 bpm. Unfortunately patient has quite a bit of motion artifact. However no gross ST elevations noted. Nonspecific T wave changes in the inferior leads. Abnormal intervals with a prolonged QRS at 120 ms. The nonspecific interventricular conduction delay. No old EKG. Chest x-ray per ED MD interpretation is negative for acute process. CT brain per radiologist shows no acute process. 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 The mass does displace the bladder as well as obstructing the distal left ureter. Cholelithiasis with no evidence of cholecystitis. Urine analysis did return does show RBCs WBCs leukocyte esterase however no bacteria. Culture will be sent. May just be colonization. On reevaluation patient is resting comfortably patient and daughter were extensively updated on results clinical impressions treatment plan. Neither were aware that patient has this large left pelvic mass concerning for cancer. 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 Often treated with surgery chemoradiation. And with patient's age debility risk factors concerned that he may not be able to physically emotionally endure treatment. Asked about his end goals and wishes. Daughter is in agreement with obtaining palliative care consult. Patient understands also states that he would likely not want surgery is tired of appointments and proc edures however would like to discuss palliative hospice care with who unfortunately is also not doing well. Questions answered at length. Agreeable to admission. I did speak to Dr. Nathan regarding admission for suspected urosepsis failure to thrive and palliative hospice care consults. He has accepted admission. Final impressions 1. Urosepsis 2. Failure to thrive 3. 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 Atrial fibrillation on Eliquis dispo: admit med sx condition: fair Lab Data Result diagrams: 08/14/21 19:04 08/14/21 19:04 Labs: Lab Results 08/14/21 08/14/21 08/14/21 Range/Units 19:04 19:04 19:04 WBC 15.4 H (4.5-11.0) K/mcL RBC 4.01 L (4.63-6.08) M/mcL Hgb 11.7 L (13.7-17.5) g/dL Hct 36.6 L (40.1-51.0) % MCV 91.3 (80.0-100.0) fL MCH 29.2 (26.0-34.0) pg MCHC 32.0 (31.0-36.0) g/dL RDW 14.0 (11.5-14.5) % Plt Count 553 H (140-440) K/mcL MPV 10.4 (7.4-10.4) fL Neut % (Auto) 76.1 (38.0-78.0) % Lymph % (Auto) 13.3 L (15.5-49.0) % [place] % (Auto) 8.6 (1.0-12.0) % Eos % (Auto) 1.4 (0.0-7.0) % Baso % (Auto) 0.6 (0.0-2.0) % Lymph # (Auto) 2.05 (1.50-4.80) K/mcL [place] # (Auto) 1.32 H (0.10-0.90) K/mcL Eos # (Auto) 0.21 (0.00-0.70) K/mcL Baso # (Auto) 0.09 (0.00-0.30) K/mcL Absolute Neutrophils 11.74 H (1.80-8.00) K/mcL PT (11.9-14.5) sec INR (0.9-1.1) APTT (20.0-37.0) sec VBG Lactic Acid 2.6 H (0.5-2.0) mmol/L Sodium 133 (133-145) mmol/L Potassium 3.3 (3.3-5.1) mmol/L Chloride 98 (96-108) mmol/L Carbon Dioxide 22 (22-30) mmol/L Anion Gap 13.0 (8.0-16.0) BUN 12 (8-23) mg/dL Creatinine 1.1 (0.7-1.2) mg/dL POC Creatinine (0.6-1.2) mg/dL GFR Calculation 63 Glucose 110 H (70-105) mg/dL Calcium 12.4 H (8.6-10.4) mg/dL Magnesium 2.2 (1.6-2.5) mg/dL Total Bilirubin 0.4 (0.1-1.0) mg/dL AST 13 (<40) U/L ALT 22 (<40) U/L Alkaline Phosphatase 80 (39-117) U/L Total Protein 7.2 (5.9-8.4) gm/dL Albumin 3.3 (3.2-5.2) gm/dL Globulin 3.9 H (2.2-3.7) gm/dL Albumin/Globulin Ratio 0.8 L (1.0-2.3) Urine Color Urine Appearance (Clear) Urine pH (5.0-9.0) Ur Specific [place] (1.000-1.035) Urine Protein (Negative) mg/dL Urine Glucose (UA) (Negative) mg/dL Urine Ketones (Negative) mg/dL Urine Occult Blood (Negative) mg/dL Urine Nitrate (Negative) Urine Bilirubin (Negative) mg/dL Urine Urobilinogen mg/dL Ur Leukocyte Esterase (Negative) /uL Urine RBC (0-3) /hpf Urine WBC (0-4) /hpf Ur Squamous Epith Cells (0-4) /hpf Urine Bacteria (0) /hpf Urine Mucus (None) /hpf Ur Culture Indicated? 08/14/21 08/14/21 08/14/21 Range/Units 19:04 19:04 20:04 WBC (4.5-11.0) K/mcL RBC (4.63-6.08) M/mcL Hgb (13.7-17.5) g/dL Hct (40.1-51.0) % MCV (80.0-100.0) fL MCH (26.0-34.0) pg MCHC (31.0-36.0) g/dL RDW (11.5-14.5) % Plt Count (140-440) K/mcL MPV (7.4-10.4) fL Neut % (Auto) (38.0-78.0) % Lymph % (Auto) (15.5-49.0) % [place] % (Auto) (1.0-12.0) % Eos % (Auto) (0.0-7.0) % Baso % (Auto) (0.0-2.0) % Lymph # (Auto) (1.50-4.80) K/mcL [place] # (Auto) (0.10-0.90) K/mcL Eos # (Auto) (0.00-0.70) K/mcL Baso # (Auto) (0.00-0.30) K/mcL Absolute Neutrophils (1.80-8.00) K/mcL PT 18.2 H (11.9-14.5) sec INR 1.4 H (0.9-1.1) APTT 40.5 H (20.0-37.0) sec VBG Lactic Acid (0.5-2.0) mmol/L Sodium (133-145) mmol/L Potassium (3.3-5.1) mmol/L Chloride (96-108) mmol/L Carbon Dioxide (22-30) mmol/L Anion Gap (8.0-16.0) BUN (8-23) mg/dL Creatinine (0.7-1.2) mg/dL POC Creatinine 1.0 (0.6-1.2) mg/dL GFR Calculation Glucose (70-105) mg/dL Calcium (8.6-10.4) mg/dL Magnesium (1.6-2.5) mg/dL Total Bilirubin (0.1-1.0) mg/dL AST (<40) U/L ALT (<40) U/L Alkaline Phosphatase (39-117) U/L Total Protein (5.9-8.4) gm/dL Albumin (3.2-5.2) gm/dL Globulin (2.2-3.7) gm/dL Albumin/Globulin Ratio (1.0-2.3) Urine Color Yellow Urine Appearance Turbid A (Clear) Urine pH 6.0 (5.0-9.0) Ur Specific [place] 1.013 (1.000-1.035) Urine Protein 100 A (Negative) mg/dL Urine Glucose (UA) Negative (Negative) mg/dL Urine Ketones Negative (Negative) mg/dL Urine Occult Blood 0.20 (Negative) mg/dL Urine Nitrate Negative (Negative) Urine Bilirubin Negative (Negative) mg/dL Urine Urobilinogen Negative mg/dL Ur Leukocyte Esterase 500 A (Negative) /uL Urine RBC 121 H (0-3) /hpf Urine WBC > 182 H (0-4) /hpf Ur Squamous Epith Cells 0 (0-4) /hpf Urine Bacteria None (0) /hpf Urine Mucus Few A (None) /hpf Ur Culture Indicated? yes ED POC Tests ED POC Tests: DAVID - SARS Antigen Negative Discharge Plan Patient/Caregiver Discharge Instructions Pt seen by CARDIOVASCULAR OR NURSE/PA only: No Patient Disposition: Xfer [facility] Inpt ([facility]) Condition: Fair Follow up with: Ana Paula George [Primary Care Provider] - Prescriptions: No Action potassium chloride [Klor-Con M20] 20 mEq tablet,ER particles/crystals 1 tab PO QDAY 0RF tamsulosin 0.4 mg capsule 1 cap PO QDAY 0RF ondansetron 4 mg Tablet,Disintegrating 4 mg PO Q6H 0RF fluticasone propionate 50 mcg/actuation [place],Suspension 1 spray INTRANASAL QDAY 0RF Rx Instructions: administer into each nostril pregabalin 75 mg capsule 1 cap PO QDAY 0RF cholecalciferol (vitamin D3) [Vitamin D3] 50 mcg (2,000 unit) Capsule 50 mcg PO QDAY 0RF Eliquis 5 mg tablet 5 tab PO QDAY 0RF folic acid capsule 1,000 mg DAILY 0RF hydrochlorothiazide 12.5 mg tablet 12.5 mg PO QAM Qty: 30 0RF ciprofloxacin HCl 500 mg tablet 500 mg PO BID 0RF digoxin 125 mcg (0.125 mg) tablet 125 mcg PO QDAY 0RF midodrine 5 mg tablet 5 mg PO TID 0RF
[2021-08-14 21:18] LABS: Appearance,Urine TURBID (Clear); Bilirubin,Urine Negative (Negative); Color,Urine Yellow; Culture Indicated,Urine yes; Glucose,Urine (UA) Negative (Negative); Ketones,Urine Negative (Negative); Leukocyte Esterase,Urine 500 /uL (Negative); Mucus,Urine FEW /hpf; Nitrate,Urine Negative (Negative); Protein,Urine 100 mg/dL (Negative); Specific Gravity,Urine 1.013 (1.000-1.035); Urine RBC 121 /hpf (0-3); Urine Squamous Epithelial Cell 0 /hpf (0-4); Urine WBC > 182 /hpf (0-4); Urobilinogen,Urine Negative
--- NOTE | 2021-08-14 23:01 | Internal Med History&Physical ---
HPI History of Present Illness Patient information: Note initiated : 08/14/21 at 10:43 pm Service Date, if different from initiated Date: [] Patient: Jean Claude Clayton 81 y/o M admitted on for UTI. Chief Complaint: [] History of present illness: Mr. Clayton is a 81 year old male with a history of atrial fibrillation, recent DVT on Eliquis, bladder mass versus pelvic mass compressing upon the bladder complicated by bladder outlet obstruction requiring indwelling Samson catheter who presented to the ED for fatigue, decreased appetite, unintentional weight loss consistent with failure to thrive. The patient was admitted to [facility] in mid June and was found to have this mass, he has since followed up with urology and the tentative plan is to proceed with surgery for a transurethral resection of the bladder mass. In the ED, the patient was hemodynamically stable, tachycardic with a respiratory rate in the mid 20s. CBC was noted for a leukocytosis with a left shift, lactic acid was elevated at 2.6. Renal function was normal, calcium level was noted to be elevated at 12.4, albumin was normal at 3.3. Urinalysis was suggestive of a urinary tract infection. The patient received a dose of Zosyn in the emergency department. Hospital medicine was consulted for admission. The patient was accompanied in the ED by one of his daughters who says that the patient has become losing weight and become so weak that he is almost bedbound. We discussed goals of care at the bedside. It is clear that the patient and especially his daughters are having second thoughts about proceeding with aggressive treatment for the mass. His daughter is concerned that he will not survive the surgery given his current clinical status. We discussed the option of comfort care and getting hospice involved with a goal of the patient going home with hospice. Patient was not ready to make a decision however he does want his pain controlled and to be comfortable. Explained that we can admit him to the hospital, treat his probable urinary tract infection and control his pain. We can have a discussion about goals of care tomorrow and proceed accordingly. Review of systems Constitutional: Positive for fatigue and weight loss Eyes: no vision changes or pain Cardiovascular: no chest pain, no palpitations Respiratory: no cough or dyspnea Gastrointestinal: no abdominal pain, no nausea, vomiting, or diarrhea Genitourinary: Positive for Samson catheter. Musculoskeletal: no arthralgia or myalgia Integumentary: no skin lesion or wound Neurological: no focal weakness or numbness Psychiatric: no anxiety or depression Physical exam Head: Atraumatic, normal inspection. Eyes: normal appearance, no scleral icterus. Neck: full ROM Respiratory: no respiratory distress. Cardiovascular: Irregular tachycardia S1, S2. GI/Abdominal: soft, nontender, no guarding. : Indwelling Samson catheter recently replaced. Extremities: full range of motion, nontender. Neurological: CN II-XII intact, intact motor, intact sensation. Psychiatric: normal mood. Skin: warm, normal color PFSH PFSH All Active Problems (Updated 07/09/21 @ 13:53 by Dominguez Gomez MD) Hypertension (Chronic) Influenza (Chronic) UTI (urinary tract infection) (Chronic) Mass of urinary bladder (Chronic) Acute renal insufficiency (Chronic) Anemia (Chronic) Acute urinary retention (Chronic) Acute respiratory insufficiency (Chronic) Infection, systemic (Chronic) Acute hyponatremia (Chronic) Cholelithiasis (Chronic) Dependent edema (Chronic) Samson catheter in place (Chronic) Atrial fibrillation (Chronic) DVT (deep venous thrombosis) (Chronic) Folic acid deficiency (Chronic) Traumatic injury (Chronic) Hyperlipidemia (Chronic) Vitamin D deficiency (Chronic) Edema of right lower extremity (Chronic) Difficulty urinating (Chronic) Hypokalemia (Chronic) Anticoagulant long-term use (Acute) Bladder stone (Acute) Medical History Acute hyponatremia Acute renal insufficiency Acute respiratory insufficiency Acute urinary retention Anemia Atrial fibrillation Cholelithiasis Dependent edema Difficulty urinating DVT (deep venous thrombosis) Edema of right lower extremity Samson catheter in place Folic acid deficiency Hyperlipidemia Hypertension Hypokalemia Infection, systemic Influenza Mass of urinary bladder Traumatic injury UTI (urinary tract infection) Vitamin D deficiency Surgical History History of prostate surgery (~1999) Family History Mother CKD (chronic kidney disease) Hypertensive disorder Sister Disorder of thyroid gland Brother Pulmonary thromboembolism Social History marital status: occupational status: unemployed smoking status: Former smoker pack-years: 20 alcohol intake frequency: former alcohol drinker substance use type: does not use MEDS/ALLERGIES Home Medications and Allergies Home Medications Medication Instructions Recorded Confirmed Type apixaban 5 mg tablet (Eliquis) 5 tab PO BID 06/18/21 08/14/21 History folic acid 1,000 mg DAILY 06/18/21 08/14/21 History pregabalin 75 mg capsule 1 cap PO QDAY 06/18/21 08/14/21 History tamsulosin 0.4 mg capsule 1 cap PO QDAY 06/18/21 08/14/21 History ciprofloxacin HCl 500 mg tablet 500 mg PO BID 08/12/21 08/14/21 History digoxin 125 mcg (0.125 mg) tablet 125 mcg PO QDAY 08/12/21 08/14/21 History midodrine 5 mg tablet 5 mg PO TID 08/12/21 08/14/21 History apixaban 5 mg tablet (Eliquis) 1 tab PO BID 08/14/21 08/14/21 History Allergies Allergy/AdvReac Type Severity Reaction Status Date / Time lovastatin Allergy Intermediate Hives Verified 08/12/21 13:53 simvastatin Allergy Intermediate Rash Verified 08/12/21 13:53 lisinopril AdvReac Intermediate Cough Verified 08/12/21 13:53 EXAM Constitutional Vitals: Temp Pulse Resp BP Pulse Ox 97.7 F 114 H 22 118/78 100 08/14/21 18:37 08/14/21 22:22 08/14/21 22:22 08/14/21 22:16 08/14/21 22:22 DATA Data Completed and Pending Labs: Labs from last 24 hours 08/14/21 08/14/21 08/14/21 20:04 19:04 19:04 WBC RBC Hgb Hct MCV MCH MCHC RDW Plt Count MPV Neut % (Auto) Lymph % (Auto) [place] % (Auto) Eos % (Auto) Baso % (Auto) Lymph # (Auto) [place] # (Auto) Eos # (Auto) Baso # (Auto) Absolute Neutrophils PT 18.2 H INR 1.4 H APTT 40.5 H VBG Lactic Acid Sodium Potassium Chloride Carbon Dioxide Anion Gap BUN Creatinine POC Creatinine 1.0 GFR Calculation Glucose Calcium Magnesium Total Bilirubin AST ALT Alkaline Phosphatase Total Protein Albumin Globulin Albumin/Globulin Ratio Urine Color Yellow Urine Appearance Turbid A Urine pH 6.0 Ur Specific [place] 1.013 Urine Protein 100 A Urine Glucose (UA) Negative Urine Ketones Negative Urine Occult Blood 0.20 Urine Nitrate Negative Urine Bilirubin Negative Urine Urobilinogen Negative Ur Leukocyte Esterase 500 A Urine RBC 121 H Urine WBC > 182 H Ur Squamous Epith Cells 0 Urine Bacteria None Urine Mucus Few A Ur Culture Indicated? yes 08/14/21 08/14/21 08/14/21 19:04 19:04 19:04 WBC 15.4 H RBC 4.01 L Hgb 11.7 L Hct 36.6 L MCV 91.3 MCH 29.2 MCHC 32.0 RDW 14.0 Plt Count 553 H MPV 10.4 Neut % (Auto) 76.1 Lymph % (Auto) 13.3 L [place] % (Auto) 8.6 Eos % (Auto) 1.4 Baso % (Auto) 0.6 Lymph # (Auto) 2.05 [place] # (Auto) 1.32 H Eos # (Auto) 0.21 Baso # (Auto) 0.09 Absolute Neutrophils 11.74 H PT INR APTT VBG Lactic Acid 2.6 H Sodium 133 Potassium 3.3 Chloride 98 Carbon Dioxide 22 Anion Gap 13.0 BUN 12 Creatinine 1.1 POC Creatinine GFR Calculation 63 Glucose 110 H Calcium 12.4 H Magnesium 2.2 Total Bilirubin 0.4 AST 13 ALT 22 Alkaline Phosphatase 80 Total Protein 7.2 Albumin 3.3 Globulin 3.9 H Albumin/Globulin Ratio 0.8 L Urine Color Urine Appearance Urine pH Ur Specific [place] Urine Protein Urine Glucose (UA) Urine Ketones Urine Occult Blood Urine Nitrate Urine Bilirubin Urine Urobilinogen Ur Leukocyte Esterase Urine RBC Urine WBC Ur Squamous Epith Cells Urine Bacteria Urine Mucus Ur Culture Indicated? A/P Narrative A/P Narrative: Assessment: 81 year old male with a history of atrial fibrillation, recent DVT on Eliquis, bladder mass versus pelvic mass compressing upon the bladder complicated by bladder outlet obstruction requiring indwelling Samson catheter who presented to the ED for fatigue, decreased appetite, unintentional weight loss consistent with failure to thrive. The patient also has a leukocytosis and mildly elevated lactic acid, work-up was suggestive of UTI. The patient was recently on oral ciprofloxacin. #Failure to thrive #Probable UTI #Atrial fibrillation #Recent DVT on Eliquis #Bladder mass versus pelvic mass abutting on bladder #Left hydronephrosis #Poor prognosis Plan -Zosyn 4.5 mg IV every 8 hours for now. -Follow urine and blood cultures. -IV fluid, repeat lactic acid. -Analgesics as needed. -Follow-up pending chest x-ray, head CT, CT abdominal pelvis reports. -Home medication reconciliation, continue essential meds. -Replace samson catheter prior to discharge. -Reviewed goals of care. -Regular diet. -DVT prophylaxis: On Eliquis -CODE STATUS: DNR/DNI -Disposition: TBD Time Spent With Patient Time: Total time spent is greater than 50% in coordination of care (as documented) at patient's floor/unit and/or counseling patient:
[2021-08-15] MEDS ORDERED: ONDANSETRON 4 MG/2 ML VIAL IV PRN (01:23)
[2021-08-15] MEDS ORDERED: 0.9 % SODIUM CHLORIDE 1,000 ML IV SCH ×2 (01:23)
[2021-08-15] MEDS ORDERED: HYDROmorphone 0.5 MG/0.5 ML SYRINGE IV PRN (01:23)
[2021-08-15] MEDS: PIPERACILLIN SODIUM/TAZOBACTAM 4.5 GM in DEXTROSE 5% IN WATER 50 ML IV SCH ×3 (03:22→21:30)
--- NOTE | 2021-08-15 03:46 | XRay Report ---
CLINICAL INFORMATION: Cough COMPARISON: 06/18/2021 TECHNIQUE: Portable FINDINGS: The heart size, mediastinum and pulmonary vessels are unremarkable. The lungs are clear. There are no effusions. The bones and soft tissues are within normal limits. IMPRESSION: Normal chest. Interpreted and Authenticated by: Paul Figueroa 08/15/21
--- NOTE | 2021-08-15 03:49 | Cat Scan Report ---
CLINICAL INFORMATION: Confusion COMPARISON: 03/12/2019 TECHNIQUE: 2.5 mm helical slices were obtained in the skull base to vertex. Following reconstruction, axial reformatted images were reviewed at bone and parenchymal windows. The exam was performed using radiation dose optimization techniques including, but not limited to, automated exposure control, adjustment of the mA and/or kV according to patient size and use of iterative reconstruction technique. FINDINGS: The ventricles, sulci, fissures, and cisterns are symmetrically enlarged compatible with mild age-related atrophy. No extra-axial fluid collections are identified. Mild patchy chronic ischemic changes, in the deep cerebral white matter, are expected for age. 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 There is no hemorrhage, mass effect, or edema. Bone windows show no osseous abnormality. IMPRESSION: Mild atrophy and chronic ischemic changes in the deep cerebral white matter-expected for age. Moderate remote right frontal infarct stable. No acute findings Interpreted and Authenticated by: Paul Figueroa 08/15/21
[2021-08-15] MEDS: 0.9 % SODIUM CHLORIDE 10 ML SYRINGE IV SCH ×3 (05:03→21:07)
[2021-08-15 07:05] LABS: Basophils # (Auto) 0.09 K/mcL (0.00-0.30); Basophils % (Auto) 0.6 % (0.0-2.0); Eosinophils # (Auto) 0.16 K/mcL (0.00-0.70); Hematocrit 30.4 % (40.1-51.0); Hemoglobin 9.7 g/dL (13.7-17.5); Lymphocytes # (Auto) 1.71 K/mcL (1.50-4.80); Lymphocytes % (Auto) 10.7 % (15.5-49.0); Mean Corpuscular HGB Conc 31.9 g/dL (31.0-36.0); Mean Platelet Volume 10.2 fL (7.4-10.4); Monocytes # (Auto) 1.62 K/mcL (0.10-0.90); Monocytes % (Auto) 10.1 % (1.0-12.0); Neutrophils % (Auto) 77.6 % (38.0-78.0); Platelet Count 452 K/mcL (140-440); RBC 3.34 M/mcL (4.63-6.08); Red Cell Distribution Width 13.9 % (11.5-14.5)
--- NOTE | 2021-08-15 07:09 | Cat Scan Report ---
CLINICAL INFORMATION: Constipation and abdominal pain COMPARISON: Chest abdomen and pelvic CT 06/18/2021. TECHNIQUE: Following enteric contrast, 80 cc of Isovue-370 were injected intravenously, and 60 seconds later, 0.625 mm helical slices were obtained from the mid heart through the subtrochanteric regions. Following reconstruction, 2.5 mm sagittal, coronal and axial reformatted images were processed and reviewed at bone, lung and soft tissue windows. Five minutes later, 0.625 mm helical slices were obtained from the mid heart through the kidneys and viewed at soft tissue windows.The exam was performed using radiation dose optimization techniques including, but not limited to, automated exposure control, adjustment of the mA and/or kV according to patient size and use of iterative reconstruction technique. FINDINGS: Subsegmental atelectasis is seen in the posterior right lower lobe. Lung bases are, otherwise, clear. The heart is normal in size with extremely heavy calcific plaque seen in the left main, proximal LAD and proximal right coronary arteries. No effusions Abdominal images again show multiple small stones less than 5 mm dependently within the gallbladder. The gallbladder is otherwise normal-no evidence of wall thickening to suggest cholecystitis. The intrahepatic and common bile ducts are normal caliber: CBD is 5 mm. The liver, right kidney, both adrenal glands, spleen and pancreas are normal in size configuration and attenuation without focal lesion. The abdominal aorta contains heavy atherosclerotic plaque but is normal diameter. 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 (The previous maximal dimension, on the exam two months prior, was 9 cm). It is predominantly fluid attenuation centrally which may represent urine and/or necrosis. There is a moderate enhancing irregular margin. The mass extends inferiorly to invade the left chain mortiser operator internus. It also displaces the rectum rightward. The mass also obstructs the distal left ureter resulting in severe left hydroureter/hydronephrosis. The remaining urinary bladder is moderately distended with diffuse wall thickening. A Nice catheter is properly positioned in the urinary bladder base. Stomach, small and large bowel show symmetric dilatation of compatible with moderate ileus. There is a very large amount of colonic stool, but no evidence of bowel obstruction. There is no free air, free fluid or adenopathy. Bone windows show degeneration in the lumbar spine, but no evidence of osseous metastases. 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 This has increased in size from a CT just two months prior. At that time, the maximal dimension was 9 cm. It is invaded the left obturator internus muscle. It also obstructs the distal left ureter resulting in severe left hydroureter/hydronephrosis. No evidence of adenopathy or metastatic disease. If tissue diagnosis is desired, this could be biopsied under CT guidance. It was presumed that it may be accessible via cystoscopy, however this may not be the case. It is possible, but less likely, this tumor may have originated outside the bladder and may represent a sarcoma. Moderate ileus with a very large amount of colonic stool. The mass does displace the rectum leftward, but no evidence of bowel obstruction. Cholelithiasis-stable. Interpreted and Authenticated by: Paul Figueroa 08/15/21
[2021-08-15 07:41] LABS: ALT/SGPT 14 U/L (<40); AST/SGOT 8 U/L (<40); Albumin 2.6 gm/dL (3.2-5.2); Albumin/Globulin Ratio 0.9 (1.0-2.3); Alkaline Phosphatase 60 U/L (39-117); Bilirubin,Direct 0.2 mg/dL (<0.3); Bilirubin,Total 0.5 mg/dL (0.1-1.0); Blood Urea Nitrogen 10 mg/dL (8-23); Calcium 11.2 mg/dL (8.6-10.4); Carbon Dioxide 22 mmol/L (22-30); Chloride 104 mmol/L (96-108); Globulin 2.9 gm/dL (2.2-3.7); Glomerular Filtration Rate 80; Glucose 115 mg/dL (70-105); Lactate Dehydrogenase 68 U/L (135-225); Phosphorous 2.4 mg/dL (2.5-4.5); Triglycerides 73 mg/dL (<150); Uric Acid 6.1 mg/dL (2.5-8.0)
[2021-08-15] MEDS ORDERED: POTASSIUM CHLORIDE 20 MEQ TABLET PO ONE (07:59)
[2021-08-15] MEDS ORDERED: DEXTROSE 5%-1/2NS W/40MEQ KCL 1,000 ML IV SCH (08:00)
[2021-08-15] MEDS: MIDODRINE 5 MG TABLET PO SCH ×3 (08:09→16:42)
[2021-08-15] MEDS: DOCUSATE SODIUM 100 MG CAPSULE PO SCH ×3 (08:10→21:18)
[2021-08-15] MEDS: PREGABALIN 75 MG CAPSULE PO SCH (08:10)
[2021-08-15] MEDS: TAMSULOSIN 0.4 MG CAPSULE PO SCH (08:10)
[2021-08-15] MEDS: FOLIC ACID 1 MG TABLET PO SCH (08:10)
[2021-08-15] MEDS ORDERED: MIDODRINE 5 MG TABLET PO SCH (09:00)
[2021-08-15] MEDS ORDERED: APIXABAN 5 MG TABLET PO SCH (09:00)
[2021-08-15] MEDS ORDERED: DEXTROSE 5%-1/2NS W/30MEQ KCL 1,000 ML IV SCH (09:15)
[2021-08-15] MEDS: DIGOXIN 125 MCG TABLET PO SCH (14:15)
--- NOTE | 2021-08-15 14:39 | Internal Med Progress Note ---
SUBJECTIVE Subjective Patient information: Note initiated : 08/15/21 at 2:38 pm Service Date, if different from initiated Date: [] Patient: Jean Claude Clayton 81 y/o M admitted on 08/14/21 for UTI. Chief Complaint: [] Interval history: Mr. Clayton is a 81 year old male with a history of atrial fibrillation, recent DVT on Eliquis, bladder mass versus pelvic mass compressing upon the bladder complicated by bladder outlet obstruction requiring indwelling Samson catheter who presented to the ED for fatigue, decreased appetite, unintentional weight loss consistent with failure to thrive. The patient was admitted to [facility] in mid June and was found to have this mass, he has since followed up with urology and the tentative plan is to proceed with surgery for a transurethral resection of the bladder mass. In the ED, the patient was hemodynamically stable, tachycardic with a respiratory rate in the mid 20s. CBC was noted for a leukocytosis with a left shift, lactic acid was elevated at 2.6. Renal function was normal, calcium level was noted to be elevated at 12.4, albumin was normal at 3.3. Urinalysis was suggestive of a urinary tract infection. The patient received a dose of Zosyn in the emergency department. Hospital medicine was consulted for admission. The patient was accompanied in the ED by one of his daughters who says that the patient has become losing weight and become so weak that he is almost bedbound. We discussed goals of care at the bedside. It is clear that the patient and especially his daughters are having second thoughts about proceeding with aggressive treatment for the mass. His daughter is concerned that he will not survive the surgery given his current clinical status. We discussed the option of comfort care and getting hospice involved with a goal of the patient going home with hospice. Patient was not ready to make a decision however he does want his pain controlled and to be comfortable. Explained that we can admit him to the hospital, treat his probable urinary tract infection and control his pain. We can have a discussion about goals of care tomorrow and proceed accordingly. 08/15 Febrile overnight. The patient is confused today as on admission, CT abd omen/pelvis reported an interval increase in the mass size from 9 cm to 11 cm. Continues on Zosyn, urine culture pending. Replaced low potassium, WBC increased. Second lactic acid was normal. Goals of care discussed with the patient and his daughter at bedside. The patient wants to pursue a CT-guided biopsy to know what kind of malignancy he has but does not want to pursue aggressive treatments. He is leaning towards discharge to transitional care unit for a short period of rehab then probably going home with hospice. Physical exam Head: Atraumatic, normal inspection. Eyes: normal appearance, no scleral icterus. Neck: full ROM Respiratory: no respiratory distress. Cardiovascular: Irregular tachycardia S1, S2. GI/Abdominal: soft, nontender, no guarding. : Indwelling Samson catheter recently replaced. Extremities: full range of motion, nontender. Neurological: CN II-XII intact, intact motor, intact sensation. Psychiatric: normal mood, impaired cognition. Skin: warm, normal color Constitutional Vitals: Vital Signs Temp Pulse Resp BP Pulse Ox 97.6 F 94 H 16 111/65 97 08/15/21 11:28 08/15/21 11:28 08/15/21 11:28 08/15/21 11:28 08/15/21 11:28 Period Temp Pulse Resp BP Sys/Urban Pulse Ox Last 24 Hr 97.6 F-100.6 F 42-143 16-31 81-154/53-120 80-100 Intake and Output 08/15/21 08/15/21 08/15/21 05:59 13:59 21:59 Intake Total 50 1030 Output Total 500 Balance -450 1030 Weight 69.49 kg 69.49 kg Patient Weight 08/16/21 06:59 Weight 69.49 kg Intake & Output: Intake & Output 08/15/21 08/15/21 08/15/21 05:59 13:59 21:59 Intake Total 50 1030 Output Total 500 Balance -450 1030 Weight 69.49 kg 69.49 kg Intake: IV 50 790 Sodium Chloride 0.9% 1,000 ml @ 790 100 mls/hr IV .Q10H [facility] Rx#: [id number] Zosyn 4.5 gm In Dextrose 5% in 50 Water 50 ml @ 100 mls/hr IV Q8H [facility] Rx#:[id number] Oral 0 240 Output: Urine Catheter Amount 500 Other: Meal Breakfast Percent of Meal Consumed 100% Feeding Ability Total Assistance Urine Appearance Clear Urine Color Dark Yellow OBJ DATA Labs CBC & Chem 7: 08/15/21 06:16 08/15/21 06:16 Labs: Abnormal Lab Results 08/15/21 08/15/21 08/14/21 06:16 06:16 20:04 WBC 16.0 H RBC 3.34 L Hgb 9.7 L Hct 30.4 L Plt Count 452 H Lymph % (Auto) 10.7 L [place] # (Auto) 1.62 H Absolute Neutrophils 12.40 H PT INR APTT VBG Lactic Acid Potassium 3.2 L Glucose 115 H Calcium 11.2 H Phosphorus 2.4 L Lactate Dehydrogenase 68 L Total Protein 5.5 L Albumin 2.6 L Globulin Albumin/Globulin Ratio 0.9 L Urine Appearance Turbid A Urine Protein 100 A Ur Leukocyte Esterase 500 A Urine RBC 121 H Urine WBC > 182 H Urine Mucus Few A 08/14/21 08/14/21 08/14/21 19:04 19:04 19:04 WBC RBC Hgb Hct Plt Count Lymph % (Auto) [place] # (Auto) Absolute Neutrophils PT 18.2 H INR 1.4 H APTT 40.5 H VBG Lactic Acid 2.6 H Potassium Glucose 110 H Calcium 12.4 H Phosphorus Lactate Dehydrogenase Total Protein Albumin Globulin 3.9 H Albumin/Globulin Ratio 0.8 L Urine Appearance Urine Protein Ur Leukocyte Esterase Urine RBC Urine WBC Urine Mucus 08/14/21 19:04 WBC 15.4 H RBC 4.01 L Hgb 11.7 L Hct 36.6 L Plt Count 553 H Lymph % (Auto) 13.3 L [place] # (Auto) 1.32 H Absolute Neutrophils 11.74 H PT INR APTT VBG Lactic Acid Potassium Glucose Calcium Phosphorus Lactate Dehydrogenase Total Protein Albumin Globulin Albumin/Globulin Ratio Urine Appearance Urine Protein Ur Leukocyte Esterase Urine RBC Urine WBC Urine Mucus Meds: Medications Acetaminophen (Acetaminophen 325 Mg Tablet) 650 mg PO Q4HP PRN; Protocol PRN Reason: Per Pain Protocol Hydrocodone Bitart/Acetaminophen (Hydrocodone/Apap 5/325mg Tablet) 1 tab PO Q4HP PRN; Protocol PRN Reason: Per Pain Protocol Apixaban (Apixaban 5 Mg Tablet) 5 mg PO BID [facility] Last Admin: 08/15/21 08:10 Dose: 5 mg Documented by: Digoxin (Digoxin 125 Mcg Tablet) 125 mcg PO DAILY@1400 [facility] Last Admin: 08/15/21 14:15 Dose: 125 mcg Documented by: Docusate Sodium (Docusate Sodium 100 Mg Capsule) 100 mg PO BID [facility] Last Admin: 08/15/21 08:10 Dose: 100 mg Documented by: Folic Acid (Folic Acid 1 Mg Tablet) 1 mg PO DAILY [facility] Last Admin: 08/15/21 08:10 Dose: 1 mg Documented by: Hydromorphone HCl (Hydromorphone 0.5 Mg/0.5 Ml Syringe) 0.5 mg IV Q2HP PRN; Protocol PRN Reason: Per Pain Protocol Piperacillin Sod/Tazobactam (Sod 4.5 gm/ Dextrose) 50 mls @ 100 mls/hr IV Q8H [facility]; Protocol Last Admin: 08/15/21 14:15 Dose: 100 mls/hr Documented by: Potassium Chloride/Dextrose/Sod Cl (Dextrose 5%-1/2ns W/30meq Kcl) 1,000 mls @ 84 mls/hr IV .[id number] [facility] Last Admin: 08/15/21 09:27 Dose: 84 mls/hr Documented by: Midodrine (Midodrine 5 Mg Tablet) 5 mg PO TID@0800,1200,1700 [facility] Last Admin: 08/15/21 12:10 Dose: 5 mg Documented by: Ondansetron HCl (Ondansetron 4 Mg/2 Ml Vial) 4 mg IV Q6HP PRN PRN Reason: Nausea And Vomiting Pregabalin (Pregabalin 75 Mg Capsule) 75 mg PO DAILY [facility] Last Admin: 08/15/21 08:10 Dose: 75 mg Documented by: Senna (Sennosides 1 Tablet) 2 tab PO [facility] Sodium Chloride (0.9 % Sodium Chloride 10 Ml Syringe) 10 ml IV Q8 [facility] Last Admin: 08/15/21 14:15 Dose: 10 ml Documented by: Tamsulosin HCl (Tamsulosin 0.4 Mg Capsule) 0.4 mg PO DAILY [facility] Last Admin: 08/15/21 08:10 Dose: 0.4 mg Documented by: A/P Narrative A/P Narrative: Assessment: 81 year old male with a history of atrial fibrillation, recent DVT on Eliquis, bladder mass versus pelvic mass compressing upon the bladder complicated by bladder outlet obstruction requiring indwelling Samson catheter who presented to the ED for fatigue, decreased appetite, unintentional weight loss consistent with failure to thrive. The patient also has a leukocytosis and mildly elevated lactic acid, work-up was suggestive of UTI. The patient was recently on oral ciprofloxacin. #Failure to thrive #Probable UTI #Atrial fibrillation #Recent DVT on Eliquis #Bladder mass versus pelvic mass abutting on bladder #Left hydronephrosis d/t ureteral compression from mass #Impaired cognition #Poor prognosis Plan -Zosyn 4.5 mg IV every 8 hours for now. -Follow urine and blood cultures. -Follow CBC, chemistry panel. -IV fluid, replace electrolytes as needed. -CT-guided biopsy of mass planned for 08/17/2021. -Analgesics as needed. -Hold home Eliquis for CT-guided biopsy. -Continue home digoxin, midodrine, lyrica, flomax. -Replace samson catheter prior to discharge. -Reviewed goals of care. -Regular diet. -Delirium bundle. -DVT prophylaxis: On Eliquis -CODE STATUS: DNR/DNI -Disposition: Probably TCU for rehab then home with hospice. Time Spent With Patient Time: Total time spent is greater than 50% in coordination of care (as documented) at patient's floor/unit and/or counseling patient: QUALITY VTE Deep Vein Thrombosis/Pulmonary Embolism Present on Admission: No
[2021-08-15] MEDS: HYDROcodone/APAP 5/325MG TABLET PO PRN (16:47)
[2021-08-15] MEDS: SENNOSIDES 1 TABLET PO SCH ×2 (21:07→21:18)
[2021-08-16] MEDS: PIPERACILLIN SODIUM/TAZOBACTAM 4.5 GM in DEXTROSE 5% IN WATER 50 ML IV SCH ×3 (05:18→21:46)
[2021-08-16] MEDS: 0.9 % SODIUM CHLORIDE 10 ML SYRINGE IV SCH ×3 (05:18→21:46)
[2021-08-16 06:41] LABS: Basophils # (Auto) 0.09 K/mcL (0.00-0.30); Basophils % (Auto) 0.7 % (0.0-2.0); Eosinophils # (Auto) 0.35 K/mcL (0.00-0.70); Eosinophils % (Auto) 2.6 % (0.0-7.0); Hematocrit 27.7 % (40.1-51.0); Hemoglobin 8.6 g/dL (13.7-17.5); Lymphocytes # (Auto) 1.49 K/mcL (1.50-4.80); Mean Platelet Volume 9.9 fL (7.4-10.4); Monocytes # (Auto) 1.53 K/mcL (0.10-0.90); Monocytes % (Auto) 11.3 % (1.0-12.0); Neutrophils % (Auto) 74.4 % (38.0-78.0); Platelet Count 425 K/mcL (140-440); RBC 3.01 M/mcL (4.63-6.08); Red Cell Distribution Width 14.1 % (11.5-14.5); WBC 13.6 K/mcL (4.5-11.0)
[2021-08-16 07:04] LABS: ALT/SGPT 14 U/L (<40); AST/SGOT 13 U/L (<40); Albumin 2.3 gm/dL (3.2-5.2); Albumin/Globulin Ratio 0.8 (1.0-2.3); Alkaline Phosphatase 61 U/L (39-117); Bilirubin,Direct < 0.2 mg/dL (0-0.3); Bilirubin,Total 0.3 mg/dL (0.1-1.0); Blood Urea Nitrogen 10 mg/dL (8-23); Calcium 10.8 mg/dL (8.6-10.4); Carbon Dioxide 24 mmol/L (22-30); Chloride 106 mmol/L (96-108); Globulin 2.9 gm/dL (2.2-3.7); Glomerular Filtration Rate 70; Glucose 86 mg/dL (70-105); Lactate Dehydrogenase 142 U/L (135-225); Phosphorous 2.7 mg/dL (2.5-4.5); Triglycerides 45 mg/dL (<150); Uric Acid 5.4 mg/dL (2.5-8.0)
[2021-08-16] MEDS: MIDODRINE 5 MG TABLET PO SCH ×3 (08:43→17:08)
[2021-08-16] MEDS: PREGABALIN 75 MG CAPSULE PO SCH (08:43)
[2021-08-16] MEDS: TAMSULOSIN 0.4 MG CAPSULE PO SCH (08:43)
[2021-08-16] MEDS: DOCUSATE SODIUM 100 MG CAPSULE PO SCH ×2 (08:43→20:46)
[2021-08-16] MEDS: FOLIC ACID 1 MG TABLET PO SCH (08:43)
--- NOTE | 2021-08-16 09:27 | EKG ---
[facility] Test Date: 2021-08-14 Pat Name: Jean Claude Clayton Department: ED Room: Gender: Male Carpenter Ship: CS : [id number] Requested By: Gloria Langford Order Number: [id number] Reading MD: Karol Umanzor Measurements Intervals [place] Rate: 103 P: CA: QRS: 86 QRSD: 120 T: -37 QT: 322 QTc: 422 Interpretive Statements Atrial fibrillation IVCD, consider atypical RBBB ST depr, consider ischemia, inferior leads Minimal ST elevation, lateral leads Artifact in lead(s) I,III,aVR,aVL,aVF,V1,V2,V6 and baseline wander in lead(s) II,III,aVF Electronically Signed On 08-16-2021 9:27:18 PDT by Karlo Umanzor /store/M0/[id number]
--- NOTE | 2021-08-16 10:47 | Internal Med Progress Note ---
SUBJECTIVE Subjective Patient information: Note initiated : 08/16/21 at 10:41 am Service Date, if different from initiated Date: [] Patient: Jean Claude Clayton 81 y/o M admitted on 08/14/21 for UTI. Chief Complaint: [] Interval history: Mr. Clayton is a 81 year old male with a history of atrial fibrillation, recent DVT on Eliquis, bladder mass versus pelvic mass compressing upon the bladder complicated by bladder outlet obstruction requiring indwelling Samson catheter who presented to the ED for fatigue, decreased appetite, unintentional weight loss consistent with failure to thrive. The patient was admitted to [facility] in mid June and was found to have this mass, he has since followed up with urology and the tentative plan is to proceed with surgery for a transurethral resection of the bladder mass. In the ED, the patient was hemodynamically stable, tachycardic with a respiratory rate in the mid 20s. CBC was noted for a leukocytosis with a left shift, lactic acid was elevated at 2.6. Renal function was normal, calcium level was noted to be elevated at 12.4, albumin was normal at 3.3. Urinalysis was suggestive of a urinary tract infection. The patient received a dose of Zosyn in the emergency department. Hospital medicine was consulted for admission. The patient was accompanied in the ED by one of his daughters who says that the patient has become losing weight and become so weak that he is almost bedbound. We discussed goals of care at the bedside. It is clear that the patient and especially his daughters are having second thoughts about proceeding with aggressive treatment for the mass. His daughter is concerned that he will not survive the surgery given his current clinical status. We discussed the option of comfort care and getting hospice involved with a goal of the patient going home with hospice. Patient was not ready to make a decision however he does want his pain controlled and to be comfortable. Explained that we can admit him to the hospital, treat his probable urinary tract infection and control his pain. We can have a discussion about goals of care tomorrow and proceed accordingly. 08/[address] abdomen/pelvis reported from the ED showed an interval increase in the mass size from 9 cm to 11 cm. Mental status markedly improved since admission. Continues on Zosyn, urine culture pending. Replaced low potassium, WBC increased. Second lactic acid was normal. Goals of care discussed with the patient and his daughter at bedside. The patient wants to pursue a CT-guided biopsy to know what kind of malignancy he has but does not want to pursue aggressive treatments. He is leaning towards discharge to transitional care unit for a short period of rehab then probably going home with hospice. Held Eliquis for CT-guided biopsy that will likely occur on 08/17/2021. Discussed the patient's wish to proceed with CT-guided biopsy with Dr. Figueroa. Replace Samson catheter. 08/16 No significant events overnight, afebrile overnight, resting comfortably this morning. Continues on Zosyn, WC downtrending, urine culture pending, blood cultures showing no growth to date. Awaiting CT-guided biopsy that will probably occur tomorrow or the next day. Physical exam Head: Atraumatic, normal inspection. Eyes: normal appearance, no scleral icterus. Neck: full ROM Respiratory: no respiratory distress. Cardiovascular: Irregular tachycardia S1, S2. GI/Abdominal: soft, nontender, no guarding. : Indwelling Samson catheter recently replaced. Extremities: full range of motion, nontender. Neurological: CN II-XII intact, intact motor, intact sensation. Psychiatric: normal mood, impaired cognition. Skin: warm, normal color Constitutional Vitals: Vital Signs Temp Pulse Resp BP Pulse Ox 97.2 F 92 H 16 129/70 91 08/16/21 07:31 08/16/21 07:31 08/16/21 07:31 08/16/21 07:31 08/16/21 07:31 Period Temp Pulse Resp BP Sys/Urban Pulse Ox Last 24 Hr 97.2 F-98 F 74-94 - 109-138/65-74 91-98 Intake and Output 08/15/21 08/16/21 08/16/21 20:59 05:59 13:59 Intake Total Output Total Balance Weight Intake & Output: Intake & Output 08/15/21 08/16/21 08/16/21 20:59 05:59 13:59 Intake Total Output Total Balance Weight Intake: IV Sodium Chloride 0.9% 1,000 ml @ 100 mls/hr IV .Q10H [facility] Rx#: [id number] Dextrose 5%-1/2Ns W/30Meq KCl 1 ,000 ml @ 84 mls/hr IV .[id number] [facility] Rx#:[id number] Zosyn 4.5 gm In Dextrose 5% in Water 50 ml @ 100 mls/hr IV Q8H [facility] Rx#:[id number] Oral Output: Urine Catheter Amount Other: Meal Percent of Meal Consumed Feeding Ability Urine Appearance Uretheral (Samson) Sediment Urine Color Uretheral (Samson) Pale [place] Blood Tinged Urine Odor OBJ DATA Labs CBC & Chem 7: 08/16/21 05:33 08/16/21 05:33 Labs: Abnormal Lab Results 08/16/21 08/16/21 08/15/21 05:33 05:33 06:16 WBC 13.6 H RBC 3.01 L Hgb 8.6 L Hct 27.7 L Plt Count Lymph % (Auto) 11.0 L Lymph # (Auto) 1.49 L [place] # (Auto) 1.53 H Absolute Neutrophils 10.09 H PT INR APTT VBG Lactic Acid Potassium 3.2 L Glucose 115 H Calcium 10.8 H 11.2 H Phosphorus 2.4 L Lactate Dehydrogenase 68 L Total Protein 5.2 L 5.5 L Albumin 2.3 L 2.6 L Globulin Albumin/Globulin Ratio 0.8 L 0.9 L Urine Appearance Urine Protein Ur Leukocyte Esterase Urine RBC Urine WBC Urine Mucus 08/15/21 08/14/21 08/14/21 06:16 20:04 19:04 WBC 16.0 H RBC 3.34 L Hgb 9.7 L Hct 30.4 L Plt Count 452 H Lymph % (Auto) 10.7 L Lymph # (Auto) [place] # (Auto) 1.62 H Absolute Neutrophils 12.40 H PT 18.2 H INR 1.4 H APTT 40.5 H VBG Lactic Acid Potassium Glucose Calcium Phosphorus Lactate Dehydrogenase Total Protein Albumin Globulin Albumin/Globulin Ratio Urine Appearance Turbid A Urine Protein 100 A Ur Leukocyte Esterase 500 A Urine RBC 121 H Urine WBC > 182 H Urine Mucus Few A 08/14/21 08/14/21 08/14/21 19:04 19:04 19:04 WBC 15.4 H RBC 4.01 L Hgb 11.7 L Hct 36.6 L Plt Count 553 H Lymph % (Auto) 13.3 L Lymph # (Auto) [place] # (Auto) 1.32 H Absolute Neutrophils 11.74 H PT INR APTT VBG Lactic Acid 2.6 H Potassium Glucose 110 H Calcium 12.4 H Phosphorus Lactate Dehydrogenase Total Protein Albumin Globulin 3.9 H Albumin/Globulin Ratio 0.8 L Urine Appearance Urine Protein Ur Leukocyte Esterase Urine RBC Urine WBC Urine Mucus Meds: Medications Acetaminophen (Acetaminophen 325 Mg Tablet) 650 mg PO Q4HP PRN; Protocol PRN Reason: Per Pain Protocol Hydrocodone Bitart/Acetaminophen (Hydrocodone/Apap 5/325mg Tablet) 1 tab PO Q4HP PRN; Protocol PRN Reason: Per Pain Protocol Last Admin: 08/15/21 16:47 Dose: 1 tab Documented by: Digoxin (Digoxin 125 Mcg Tablet) 125 mcg PO DAILY@1400 [facility] Last Admin: 08/15/21 14:15 Dose: 125 mcg Documented by: Docusate Sodium (Docusate Sodium 100 Mg Capsule) 100 mg PO BID [facility] Last Admin: 08/16/21 08:43 Dose: 100 mg Documented by: Folic Acid (Folic Acid 1 Mg Tablet) 1 mg PO DAILY [facility] Last Admin: 08/16/21 08:43 Dose: 1 mg Documented by: Hydromorphone HCl (Hydromorphone 0.5 Mg/0.5 Ml Syringe) 0.5 mg IV Q2HP PRN; Protocol PRN Reason: Per Pain Protocol Piperacillin Sod/Tazobactam (Sod 4.5 gm/ Dextrose) 50 mls @ 100 mls/hr IV Q8H [facility]; Protocol Last Infusion: 08/16/21 05:51 Dose: Infused Documented by: Midodrine (Midodrine 5 Mg Tablet) 5 mg PO TID@0800,1200,1700 [facility] Last Admin: 08/16/21 08:43 Dose: 5 mg Documented by: Ondansetron HCl (Ondansetron 4 Mg/2 Ml Vial) 4 mg IV Q6HP PRN PRN Reason: Nausea And Vomiting Pregabalin (Pregabalin 75 Mg Capsule) 75 mg PO DAILY [facility] Last Admin: 08/16/21 08:43 Dose: 75 mg Documented by: Senna (Sennosides 1 Tablet) 2 tab PO HS [facility] Last Admin: 08/15/21 21:18 Dose: Not Given Documented by: Sodium Chloride (0.9 % Sodium Chloride 10 Ml Syringe) 10 ml IV Q8 [facility] Last Admin: 08/16/21 05:18 Dose: 10 ml Documented by: Tamsulosin HCl (Tamsulosin 0.4 Mg Capsule) 0.4 mg PO DAILY [facility] Last Admin: 08/16/21 08:43 Dose: 0.4 mg Documented by: A/P Narrative A/P Narrative: Assessment: 81 year old male with a history of atrial fibrillation, recent DVT on Eliquis, bladder mass versus pelvic mass compressing upon the bladder complicated by bladder outlet obstruction requiring indwelling Samson catheter who presented to the ED for fatigue, decreased appetite, unintentional weight loss consistent with failure to thrive. The patient also has a leukocytosis and mildly elevated lactic acid, work-up was suggestive of UTI. The patient was recently on oral ciprofloxacin. #Catheter associated UTI -Catheter was present on admission #Failure to thrive #Atrial fibrillation #Recent DVT on Eliquis #Bladder mass versus pelvic mass abutting on bladder #Left hydronephrosis d/t ureteral compression from mass #Impaired cognition #Poor prognosis Plan -Zosyn 4.5 mg IV every 8 hours for now. -Follow urine and blood cultures. -Follow CBC, chemistry panel. -Follow and replace electrolytes as needed. -CT-guided biopsy of mass planned for 08/17/2021. -Hold home Eliquis for CT-guided biopsy. -Continue home digoxin, midodrine, lyrica, flomax. -Analgesics as needed. -Replaced samson catheter. -Regular diet. -Delirium bundle. -DVT prophylaxis: On Eliquis -CODE STATUS: DNR/DNI -Disposition: Probably SNF for short course of rehab followed [facility] Time Spent With Patient Time: Total time spent is greater than 50% in coordination of care (as documented) at patient's floor/unit and/or counseling patient: QUALITY VTE Deep Vein Thrombosis/Pulmonary Embolism Present on Admission: No
[2021-08-16] MEDS: ACETAMINOPHEN 325 MG TABLET PO PRN (12:11)
--- NOTE | 2021-08-16 13:50 | Internal Med Progress Note ---
SUBJECTIVE Subjective Patient information: Note initiated : 08/16/21 at 1:45 pm Service Date, if different from initiated Date: [] Patient: Jean Claude Clayton 81 y/o M admitted on 08/14/21 for UTI. Chief Complaint: [] Interval history: Mr. Clayton is a 81 year old male with a history of atrial fibrillation, recent DVT on Eliquis, bladder mass versus pelvic mass compressing upon the bladder complicated by bladder outlet obstruction requiring indwelling Samson catheter who presented to the ED for fatigue, decreased appetite, unintentional weight loss consistent with failure to thrive. The patient was admitted to [facility] in mid June and was found to have this mass, he has since followed up with urology and the tentative plan is to proceed with surgery for a transurethral resection of the bladder mass. In the ED, the patient was hemodynamically stable, tachycardic with a respiratory rate in the mid 20s. CBC was noted for a leukocytosis with a left shift, lactic acid was elevated at 2.6. Renal function was normal, calcium level was noted to be elevated at 12.4, albumin was normal at 3.3. Urinalysis was suggestive of a urinary tract infection. The patient received a dose of Zosyn in the emergency department. Hospital medicine was consulted for admission. The patient was accompanied in the ED by one of his daughters who says that the patient has become losing weight and become so weak that he is almost bedbound. We discussed goals of care at the bedside. It is clear that the patient and especially his daughters are having second thoughts about proceeding with aggressive treatment for the mass. His daughter is concerned that he will not survive the surgery given his current clinical status. We discussed the option of comfort care and getting hospice involved with a goal of the patient going home with hospice. Patient was not ready to make a decision however he does want his pain controlled and to be comfortable. Explained that we can admit him to the hospital, treat his probable urinary tract infection and control his pain. We can have a discussion about goals of care tomorrow and proceed accordingly. 08/[address] abdomen/pelvis reported from the ED showed an interval increase in the mass size from 9 cm to 11 cm. Mental status markedly improved since admission. Continues on Zosyn, urine culture pending. Replaced low potassium, WBC increased. Second lactic acid was normal. Goals of care discussed with the patient and his daughter at bedside. The patient wants to pursue a CT-guided biopsy to know what kind of malignancy he has but does not want to pursue aggressive treatments. He is leaning towards discharge to transitional care unit for a short period of rehab then probably going home with hospice. Held Eliquis for CT-guided biopsy that will likely occur on 08/17/2021. Discussed the patient's wish to proceed with CT-guided biopsy with Dr. Figueroa. Replace Samson catheter. 08/16 No significant events overnight, afebrile overnight, resting comfortably this morning. Continues on Zosyn, WC downtrending, urine culture pending, blood cultures showing no growth to date. Awaiting CT-guided biopsy that will probably occur tomorrow or the next day. 08/17 Constitutional Vitals: Vital Signs Temp Pulse Resp BP Pulse Ox 97 F 90 18 126/75 92 08/16/21 11:07 08/16/21 11:07 08/16/21 11:07 08/16/21 11:07 08/16/21 11:07 Period Temp Pulse Resp BP Sys/Urban Pulse Ox Last 24 Hr 97 F-98 F 74-92 16-22 109-138/66-75 91-98 Intake and Output 08/15/21 08/16/21 08/16/21 20:59 05:59 13:59 Intake Total Output Total Balance Weight Intake & Output: Intake & Output 08/15/21 08/16/21 08/16/21 20:59 05:59 13:59 Intake Total Output Total Balance Weight Intake: IV Sodium Chloride 0.9% 1,000 ml @ 100 mls/hr IV .Q10H [facility] Rx#: [id number] Dextrose 5%-1/2Ns W/30Meq KCl 1 ,000 ml @ 84 mls/hr IV .[id number] [facility] Rx#:[id number] Zosyn 4.5 gm In Dextrose 5% in Water 50 ml @ 100 mls/hr IV Q8H [facility] Rx#:[id number] Oral Output: Urine Catheter Amount Other: Meal Percent of Meal Consumed Feeding Ability Urine Appearance Uretheral (Samson) Sediment Urine Color Uretheral (Samson) Pale [place] Blood Tinged Urine Odor Exam: General: Alert, Awake, No acute Distress Eyes/N/T: EOMI, Head/Neck: neck supple, CV: irreg irreg, No murmurs, Pulm: Clear b/l, no wheezing/rhonchi/rales Abd: soft, nontender, +BS x4 Ext: no clubbing/cyanosis/edema Neuro: Alert, no focal deficits, moves all extremities, Skin: warm/dry Psychiatric: normal mood, impaired cognition OBJ DATA Labs CBC & Chem 7: 08/17/21 05:26 08/17/21 05:26 Labs: Abnormal Lab Results 08/16/21 08/16/21 08/15/21 05:33 05:33 06:16 WBC 13.6 H RBC 3.01 L Hgb 8.6 L Hct 27.7 L Plt Count Lymph % (Auto) 11.0 L Lymph # (Auto) 1.49 L [place] # (Auto) 1.53 H Absolute Neutrophils 10.09 H PT INR APTT VBG Lactic Acid Potassium 3.2 L Glucose 115 H Calcium 10.8 H 11.2 H Phosphorus 2.4 L Lactate Dehydrogenase 68 L Total Protein 5.2 L 5.5 L Albumin 2.3 L 2.6 L Globulin Albumin/Globulin Ratio 0.8 L 0.9 L Urine Appearance Urine Protein Ur Leukocyte Esterase Urine RBC Urine WBC Urine Mucus 08/15/21 08/14/21 08/14/21 06:16 20:04 19:04 WBC 16.0 H RBC 3.34 L Hgb 9.7 L Hct 30.4 L Plt Count 452 H Lymph % (Auto) 10.7 L Lymph # (Auto) [place] # (Auto) 1.62 H Absolute Neutrophils 12.40 H PT 18.2 H INR 1.4 H APTT 40.5 H VBG Lactic Acid Potassium Glucose Calcium Phosphorus Lactate Dehydrogenase Total Protein Albumin Globulin Albumin/Globulin Ratio Urine Appearance Turbid A Urine Protein 100 A Ur Leukocyte Esterase 500 A Urine RBC 121 H Urine WBC > 182 H Urine Mucus Few A 08/14/21 08/14/21 08/14/21 19:04 19:04 19:04 WBC 15.4 H RBC 4.01 L Hgb 11.7 L Hct 36.6 L Plt Count 553 H Lymph % (Auto) 13.3 L Lymph # (Auto) [place] # (Auto) 1.32 H Absolute Neutrophils 11.74 H PT INR APTT VBG Lactic Acid 2.6 H Potassium Glucose 110 H Calcium 12.4 H Phosphorus Lactate Dehydrogenase Total Protein Albumin Globulin 3.9 H Albumin/Globulin Ratio 0.8 L Urine Appearance Urine Protein Ur Leukocyte Esterase Urine RBC Urine WBC Urine Mucus Meds: Medications Acetaminophen (Acetaminophen 325 Mg Tablet) 650 mg PO Q4HP PRN; Protocol PRN Reason: Per Pain Protocol Last Admin: 08/16/21 12:11 Dose: 650 mg Documented by: Hydrocodone Bitart/Acetaminophen (Hydrocodone/Apap 5/325mg Tablet) 1 tab PO Q4HP PRN; Protocol PRN Reason: Per Pain Protocol Last Admin: 08/15/21 16:47 Dose: 1 tab Documented by: Digoxin (Digoxin 125 Mcg Tablet) 125 mcg PO DAILY@1400 [facility] Last Admin: 08/15/21 14:15 Dose: 125 mcg Documented by: Docusate Sodium (Docusate Sodium 100 Mg Capsule) 100 mg PO BID [facility] Last Admin: 08/16/21 08:43 Dose: 100 mg Documented by: Folic Acid (Folic Acid 1 Mg Tablet) 1 mg PO DAILY [facility] Last Admin: 08/16/21 08:43 Dose: 1 mg Documented by: Hydromorphone HCl (Hydromorphone 0.5 Mg/0.5 Ml Syringe) 0.5 mg IV Q2HP PRN; Protocol PRN Reason: Per Pain Protocol Piperacillin Sod/Tazobactam (Sod 4.5 gm/ Dextrose) 50 mls @ 100 mls/hr IV Q8H [facility]; Protocol Last Infusion: 08/16/21 05:51 Dose: Infused Documented by: Midodrine (Midodrine 5 Mg Tablet) 5 mg PO TID@0800,1200,1700 [facility] Last Admin: 08/16/21 12:11 Dose: 5 mg Documented by: Ondansetron HCl (Ondansetron 4 Mg/2 Ml Vial) 4 mg IV Q6HP PRN PRN Reason: Nausea And Vomiting Pregabalin (Pregabalin 75 Mg Capsule) 75 mg PO DAILY [facility] Last Admin: 08/16/21 08:43 Dose: 75 mg Documented by: Senna (Sennosides 1 Tablet) 2 tab PO HS [facility] Last Admin: 08/15/21 21:18 Dose: Not Given Documented by: Sodium Chloride (0.9 % Sodium Chloride 10 Ml Syringe) 10 ml IV Q8 [facility] Last Admin: 08/16/21 05:18 Dose: 10 ml Documented by: Tamsulosin HCl (Tamsulosin 0.4 Mg Capsule) 0.4 mg PO DAILY [facility] Last Admin: 08/16/21 08:43 Dose: 0.4 mg Documented by: A/P Narrative A/P Narrative: A: #Catheter associated UTI (Catheter was present on admission): #Failure to thrive: #Atrial fibrillation: #Recent DVT: on Eliquis #Bladder mass versus pelvic mass abutting on bladder: #Left hydronephrosis d/t ureteral compression from mass: #Anemia, chronic: #Impaired cognition: #Poor prognosis Plan -Zosyn for now, f/u BC/[id number]-RP-[id number] biopsy of mass planned for 08/17/2021. -Hold home Eliquis for CT-guided biopsy likely tomorrow -Continue home digoxin/midodrine, lyrica, flomax -Replaced samson catheter -Delirium bundle -Disposition: Probably SNF for short course of rehab followed by home with hospice. -ppx: On Eliquis CODE STATUS: DNR/DNI Time Spent With Patient Time: Total time spent is greater than 50% in coordination of care (as documented) at patient's floor/unit and/or counseling patient: QUALITY VTE Deep Vein Thrombosis/Pulmonary Embolism Present on Admission: No
[2021-08-16] MEDS: DIGOXIN 125 MCG TABLET PO SCH (14:15)
[2021-08-16] MEDS: SENNOSIDES 1 TABLET PO SCH (20:46)
[2021-08-17] MEDS: PIPERACILLIN SODIUM/TAZOBACTAM 4.5 GM in DEXTROSE 5% IN WATER 50 ML IV SCH ×3 (05:43→21:31)
[2021-08-17] MEDS: 0.9 % SODIUM CHLORIDE 10 ML SYRINGE IV SCH ×3 (05:43→21:31)
[2021-08-17 06:19] LABS: Basophils # (Auto) 0.08 K/mcL (0.00-0.30); Basophils % (Auto) 0.4 % (0.0-2.0); Eosinophils # (Auto) 0.28 K/mcL (0.00-0.70); Eosinophils % (Auto) 1.5 % (0.0-7.0); Hematocrit 30.1 % (40.1-51.0); Hemoglobin 9.7 g/dL (13.7-17.5); Lymphocytes # (Auto) 1.34 K/mcL (1.50-4.80); Lymphocytes % (Auto) 7.4 % (15.5-49.0); Mean Cell Volume 90.7 fL (80.0-100.0); Mean Corpuscular HGB Conc 32.2 g/dL (31.0-36.0); Mean Platelet Volume 9.9 fL (7.4-10.4); Monocytes # (Auto) 1.73 K/mcL (0.10-0.90); Monocytes % (Auto) 9.6 % (1.0-12.0); Neutrophils % (Auto) 81.1 % (38.0-78.0); Platelet Count 462 K/mcL (140-440); RBC 3.32 M/mcL (4.63-6.08); Red Cell Distribution Width 14.4 % (11.5-14.5); WBC 18.1 K/mcL (4.5-11.0)
[2021-08-17 06:43] LABS: ALT/SGPT 17 U/L (<40); AST/SGOT 12 U/L (<40); Albumin 2.5 gm/dL (3.2-5.2); Albumin/Globulin Ratio 0.8 (1.0-2.3); Alkaline Phosphatase 65 U/L (39-117); Bilirubin,Direct < 0.2 mg/dL (0-0.3); Bilirubin,Total 0.3 mg/dL (0.1-1.0); Blood Urea Nitrogen 11 mg/dL (8-23); Calcium 11.3 mg/dL (8.6-10.4); Carbon Dioxide 23 mmol/L (22-30); Chloride 106 mmol/L (96-108); Glomerular Filtration Rate 80; Glucose 105 mg/dL (70-105); Lactate Dehydrogenase 86 U/L (135-225); Phosphorous 2.6 mg/dL (2.5-4.5); Triglycerides 58 mg/dL (<150); Uric Acid 4.9 mg/dL (2.5-8.0)
--- NOTE | 2021-08-17 07:28 | Internal Med Progress Note ---
SUBJECTIVE Subjective Patient information: Note initiated : 08/17/21 at 7:26 am Service Date, if different from initiated Date: [] Patient: Jean Claude Clayton 81 y/o M admitted on 08/14/21 for UTI. Chief Complaint: [] Interval history: Mr. Clayton is a 81 year old male with a history of atrial fibrillation, recent DVT on Eliquis, bladder mass versus pelvic mass compressing upon the bladder complicated by bladder outlet obstruction requiring indwelling Samson catheter who presented to the ED for fatigue, decreased appetite, unintentional weight loss consistent with failure to thrive. The patient was admitted to [facility] in mid June and was found to have this mass, he has since followed up with urology and the tentative plan is to proceed with surgery for a transurethral resection of the bladder mass. In the ED, the patient was hemodynamically stable, tachycardic with a respiratory rate in the mid 20s. CBC was noted for a leukocytosis with a left shift, lactic acid was elevated at 2.6. Renal function was normal, calcium level was noted to be elevated at 12.4, albumin was normal at 3.3. Urinalysis was suggestive of a urinary tract infection. The patient received a dose of Zosyn in the emergency department. Hospital medicine was consulted for admission. The patient was accompanied in the ED by one of his daughters who says that the patient has become losing weight and become so weak that he is almost bedbound. We discussed goals of care at the bedside. It is clear that the patient and especially his daughters are having second thoughts about proceeding with aggressive treatment for the mass. His daughter is concerned that he will not survive the surgery given his current clinical status. We discussed the option of comfort care and getting hospice involved with a goal of the patient going home with hospice. Patient was not ready to make a decision however he does want his pain controlled and to be comfortable. Explained that we can admit him to the hospital, treat his probable urinary tract infection and control his pain. We can have a discussion about goals of care tomorrow and proceed accordingly. 08/[address] abdomen/pelvis reported from the ED showed an interval increase in the mass size from 9 cm to 11 cm. Mental status markedly improved since admission. Continues on Zosyn, urine culture pending. Replaced low potassium, WBC increased. Second lactic acid was normal. Goals of care discussed with the patient and his daughter at bedside. The patient wants to pursue a CT-guided biopsy to know what kind of malignancy he has but does not want to pursue aggressive treatments. He is leaning towards discharge to transitional care unit for a short period of rehab then probably going home with hospice. Held Eliquis for CT-guided biopsy that will likely occur on 08/17/2021. Discussed the patient's wish to proceed with CT-guided biopsy with Dr. Figueroa. Replace Samson catheter. 08/16 No significant events overnight, afebrile overnight, resting comfortably this morning. Continues on Zosyn, WC downtrending, urine culture pending, blood cultures showing no growth to date. Awaiting CT-guided biopsy that will probably occur tomorrow or the next day. 08/17 No overnight event new complaints. Patient did become lightheaded almost passed out when nursing got up from the bed to the chair. Vital signs stable other than mild tachycardia. Awaiting CT-guided biopsy today. Review of Systems: denies headache/fever/chills/nausea/vomiting/chest or abdominal pain/cough/dyspnea/diarrhea. Otherwise see above. Constitutional Vitals: Vital Signs Temp Pulse Resp BP Pulse Ox 97.8 F 110 H 27 H 94/62 96 08/17/21 07:23 08/17/21 07:23 08/17/21 07:23 08/17/21 07:23 08/17/21 07:23 Period Temp Pulse Resp BP Sys/Urban Pulse Ox Last 24 Hr 97 F-98.9 F 67-110 16-27 94-131/62-75 91-99 Intake and Output 08/16/21 08/17/21 08/17/21 21:59 05:59 13:59 Intake Total 1660 230 50 Output Total 850 350 Balance 810 -120 50 Weight 72.665 kg Intake & Output: Intake & Output 08/16/21 08/17/21 08/17/21 21:59 05:59 13:59 Intake Total 1660 230 50 Output Total 850 350 Balance 810 -120 50 Weight 72.665 kg Intake: Nourishment/Supplement quantity 680 (ml) IV 50 50 50 Zosyn 4.5 gm In Dextrose 5% in 50 50 50 Water 50 ml @ 100 mls/hr IV Q8H [facility] Rx#:[id number] Oral 930 180 Output: Urine Catheter Amount 850 350 Other: Meal Dinner Percent of Meal Consumed 50% Nourishment/Supplement name ensure Urine Appearance Cloudy Cloudy Small Blood Clots Urine Color Straw Straw [place] Urine Odor Normal Strong Exam: General: Alert, Awake, No acute Distress Eyes/N/T: EOMI, Head/Neck: neck supple, CV: irreg irreg, No murmurs, Pulm: Clear b/l, no wheezing/rhonchi/rales Abd: soft, nontender, +BS x4 Ext: no clubbing/cyanosis/edema Neuro: Alert, no focal deficits, moves all extremities, Skin: warm/dry Psychiatric: normal mood, impaired cognition OBJ DATA Labs CBC & Chem 7: 08/17/21 05:26 08/17/21 05:26 Labs: Abnormal Lab Results 08/17/21 08/17/21 08/16/21 05:26 05:26 05:33 WBC 18.1 H RBC 3.32 L Hgb 9.7 L Hct 30.1 L Plt Count 462 H Neut % (Auto) 81.1 H Lymph % (Auto) 7.4 L Lymph # (Auto) 1.34 L [place] # (Auto) 1.73 H Absolute Neutrophils 14.66 H PT INR APTT VBG Lactic Acid Potassium Glucose Calcium 11.3 H 10.8 H Phosphorus Lactate Dehydrogenase 86 L Total Protein 5.5 L 5.2 L Albumin 2.5 L 2.3 L Globulin Albumin/Globulin Ratio 0.8 L 0.8 L Urine Appearance Urine Protein Ur Leukocyte Esterase Urine RBC Urine WBC Urine Mucus 08/16/21 08/15/21 08/15/21 05:33 06:16 06:16 WBC 13.6 H 16.0 H RBC 3.01 L 3.34 L Hgb 8.6 L 9.7 L Hct 27.7 L 30.4 L Plt Count 452 H Neut % (Auto) Lymph % (Auto) 11.0 L 10.7 L Lymph # (Auto) 1.49 L [place] # (Auto) 1.53 H 1.62 H Absolute Neutrophils 10.09 H 12.40 H PT INR APTT VBG Lactic Acid Potassium 3.2 L Glucose 115 H Calcium 11.2 H Phosphorus 2.4 L Lactate Dehydrogenase 68 L Total Protein 5.5 L Albumin 2.6 L Globulin Albumin/Globulin Ratio 0.9 L Urine Appearance Urine Protein Ur Leukocyte Esterase Urine RBC Urine WBC Urine Mucus 08/14/21 08/14/21 08/14/21 20:04 19:04 19:04 WBC RBC Hgb Hct Plt Count Neut % (Auto) Lymph % (Auto) Lymph # (Auto) [place] # (Auto) Absolute Neutrophils PT 18.2 H INR 1.4 H APTT 40.5 H VBG Lactic Acid 2.6 H Potassium Glucose Calcium Phosphorus Lactate Dehydrogenase Total Protein Albumin Globulin Albumin/Globulin Ratio Urine Appearance Turbid A Urine Protein 100 A Ur Leukocyte Esterase 500 A Urine RBC 121 H Urine WBC > 182 H Urine Mucus Few A 08/14/21 08/14/21 19:04 19:04 WBC 15.4 H RBC 4.01 L Hgb 11.7 L Hct 36.6 L Plt Count 553 H Neut % (Auto) Lymph % (Auto) 13.3 L Lymph # (Auto) [place] # (Auto) 1.32 H Absolute Neutrophils 11.74 H PT INR APTT VBG Lactic Acid Potassium Glucose 110 H Calcium 12.4 H Phosphorus Lactate Dehydrogenase Total Protein Albumin Globulin 3.9 H Albumin/Globulin Ratio 0.8 L Urine Appearance Urine Protein Ur Leukocyte Esterase Urine RBC Urine WBC Urine Mucus Meds: Medications Acetaminophen (Acetaminophen 325 Mg Tablet) 650 mg PO Q4HP PRN; Protocol PRN Reason: Per Pain Protocol Last Admin: 08/16/21 12:11 Dose: 650 mg Documented by: Hydrocodone Bitart/Acetaminophen (Hydrocodone/Apap 5/325mg Tablet) 1 tab PO Q4HP PRN; Protocol PRN Reason: Per Pain Protocol Last Admin: 08/15/21 16:47 Dose: 1 tab Documented by: Digoxin (Digoxin 125 Mcg Tablet) 125 mcg PO DAILY@1400 [facility] Last Admin: 08/16/21 14:15 Dose: 125 mcg Documented by: Docusate Sodium (Docusate Sodium 100 Mg Capsule) 100 mg PO BID [facility] Last Admin: 08/16/21 20:46 Dose: 100 mg Documented by: Folic Acid (Folic Acid 1 Mg Tablet) 1 mg PO DAILY [facility] Last Admin: 08/16/21 08:43 Dose: 1 mg Documented by: Hydromorphone HCl (Hydromorphone 0.5 Mg/0.5 Ml Syringe) 0.5 mg IV Q2HP PRN; Protocol PRN Reason: Per Pain Protocol Piperacillin Sod/Tazobactam (Sod 4.5 gm/ Dextrose) 50 mls @ 100 mls/hr IV Q8H [facility]; Protocol Last Infusion: 08/17/21 06:30 Dose: Infused Documented by: Midodrine (Midodrine 5 Mg Tablet) 5 mg PO TID@0800,1200,1700 [facility] Last Admin: 08/16/21 17:08 Dose: 5 mg Documented by: Ondansetron HCl (Ondansetron 4 Mg/2 Ml Vial) 4 mg IV Q6HP PRN PRN Reason: Nausea And Vomiting Pregabalin (Pregabalin 75 Mg Capsule) 75 mg PO DAILY [facility] Last Admin: 08/16/21 08:43 Dose: 75 mg Documented by: Senna (Sennosides 1 Tablet) 2 tab PO HS [facility] Last Admin: 08/16/21 20:46 Dose: 2 tab Documented by: Sodium Chloride (0.9 % Sodium Chloride 10 Ml Syringe) 10 ml IV Q8 [facility] Last Admin: 08/17/21 05:43 Dose: 10 ml Documented by: Tamsulosin HCl (Tamsulosin 0.4 Mg Capsule) 0.4 mg PO DAILY [facility] Last Admin: 08/16/21 08:43 Dose: 0.4 mg Documented by: A/P Narrative A/P Narrative: A: #Catheter associated UTI (Catheter was present on admission): -BC/UC neg #Failure to thrive: #Atrial fibrillation: #Recent DVT: on Eliquis #Bladder mass versus pelvic mass abutting on bladder: #Left hydronephrosis d/t ureteral compression from mass: #Anemia, chronic: #Impaired cognition: #Poor prognosis Plan -Zosyn for now, -CT-guided biopsy of mass planned for 08/17/2021. -Hold home Eliquis for CT-guided biopsy -Continue home digoxin/midodrine, lyrica, flomax -Replaced samson catheter -Delirium bundle -Disposition: Probably SNF for short course of rehab followed by home with hospice. -ppx: On Eliquis held for biopsy, SCD CODE STATUS: DNR/DNI Time Spent With Patient Time: Total time spent is greater than 50% in coordination of care (as documented) at patient's floor/unit and/or counseling patient: QUALITY VTE Deep Vein Thrombosis/Pulmonary Embolism Present on Admission: No
[2021-08-17] MEDS ORDERED: POTASSIUM CHLORIDE 20 MEQ in 0.9 % SODIUM CHLORIDE 1,000 ML IV SCH (09:00)
[2021-08-17] MEDS ORDERED: NACL 0.9% W/KCL 20MEQ 1,000 ML IV SCH (09:00)
[2021-08-17] MEDS: MIDODRINE 5 MG TABLET PO SCH ×3 (10:12→16:31)
[2021-08-17] MEDS: DOCUSATE SODIUM 100 MG CAPSULE PO SCH ×2 (10:13→21:30)
[2021-08-17] MEDS: FOLIC ACID 1 MG TABLET PO SCH (10:13)
--- NOTE | 2021-08-17 10:52 | Discharge Summary ---
Discharge Provider Provider Patient information: Note initiated : 08/17/21 at 10:50 am Service Date, if different from initiated Date: [] Patient: Jean Claude Clayton 81 y/o M admitted on 08/14/21 for UTI. Chief Complaint: [] Date of admission: 08/14/21 23:44 Discharge date: 08/19/21 Primary care physician: Ana Paula George Consults: 08/14/21 Consult to Physician [CONS] Stat Comment: Consulting Provider: Arturo Nathan Reason For Exam: Physician to Consult Consult to Physician [CONS] Stat Comment: Consulting Provider: Arturo Nathan Reason For Exam: Physician to Consult Discharge Meds Discharge Medications Home Medications apixaban 5 mg tablet (Eliquis) 5 tab PO BID 06/18/21 [History Confirmed 08/14/21 Last Taken Unknown] folic acid 1,000 mg DAILY 06/18/21 [History Confirmed 08/14/21 Last Taken Unknown] pregabalin 75 mg capsule 1 cap PO QDAY 06/18/21 [History Confirmed 08/14/21 Last Taken Unknown] tamsulosin 0.4 mg capsule 1 cap PO QDAY 06/18/21 [History Confirmed 08/14/21 Last Taken Unknown] digoxin 125 mcg (0.125 mg) tablet 125 mcg PO QDAY 08/12/21 [History Confirmed 08/14/21 Last Taken Unknown] midodrine 5 mg tablet 5 mg PO TID 08/12/21 [History Confirmed 08/14/21 Last Taken Unknown] magnesium 200 mg tablet 300 mg PO QDAY 08/15/21 [History Confirmed 08/15/21 Last Taken 08/14/21 14:00 300] ciprofloxacin HCl 500 mg tablet 500 mg PO BID #6 tab 08/17/21 [Rx Last Taken Unknown] hyoscyamine sulfate 0.125 mg sublingual tablet (Levsin/SL) 0.125 mg SUBLINGUAL QID PRN #20 tab 08/18/21 [Rx Last Taken Unknown] lorazepam 2 mg/mL oral concentrate 1 mg (0.5 mL) SUBLINGUAL QD-BID PRN #30 ml 08/18/21 [Rx Last Taken Unknown] morphine 20 mg/5 mL (4 mg/mL) oral solution 10 mg (2.5 mL) PO Q1-2HP PRN #100 ml 08/18/21 [Rx Last Taken Unknown] ondansetron 4 mg disintegrating tablet 4 mg TRANSLINGUAL Q6H PRN #30 tab 08/18/21 [Rx Last Taken Unknown] COURSE Hospital Course Hospital course: Interval history: Mr. Clayton is a 81 year old male with a history of atrial fibrillation, recent DVT on Eliquis, bladder mass versus pelvic mass compressing upon the bladder complicated by bladder outlet obstruction requiring indwelling Samson catheter who presented to the ED for fatigue, decreased appetite, unintentional weight loss consistent with failure to thrive. The patient was admitted to [facility] in mid June and was found to have this mass, he has since followed up with urology and the tentative plan is to proceed with surgery for a transurethral resection of the bladder mass. In the ED, the patient was hemodynamically stable, tachycardic with a respiratory rate in the mid 20s. CBC was noted for a leukocytosis with a left shift, lactic acid was elevated at 2.6. Renal function was normal, calcium level was noted to be elevated at 12.4, albumin was normal at 3.3. Urinalysis was suggestive of a urinary tract infection. The patient received a dose of Zosyn in the emergency department. Hospital medicine was consulted for admission. The patient was accompanied in the ED by one of his daughters who says that the patient has become losing weight and become so weak that he is almost bedbound. We discussed goals of care at the bedside. It is clear that the patient and especially his daughters are having second thoughts about proceeding with aggressive treatment for the mass. His daughter is concerned that he will not survive the surgery given his current clinical status. We discussed the option of comfort care and getting hospice involved with a goal of the patient going home with hospice. Patient was not ready to make a decision however he does want his pain controlled and to be comfortable. Explained that we can admit him to the hospital, treat his probable urinary tract infection and control his pain. We can have a discussion about goals of care tomorrow and proceed accordingly. 08/[address] abdomen/pelvis reported from the ED showed an interval increase in the mass size from 9 cm to 11 cm. Mental status markedly improved since admission. Continues on Zosyn, urine culture pending. Replaced low potassium, WBC increased. Second lactic acid was normal. Goals of care discussed with the patient and his daughter at bedside. The patient wants to pursue a CT-guided biopsy to know what kind of malignancy he has but does not want to pursue aggressive treatments. He is leaning towards discharge to transitional care unit for a short period of rehab then probably going home with hospice. Held Eliquis for CT-guided biopsy that will likely occur on 08/17/2021. Discussed the patient's wish to proceed with CT-guided biopsy with Dr. Figueroa. Replace Samson catheter. 08/16 No significant events overnight, afebrile overnight, resting comfortably this morning. Continues on Zosyn, WC downtrending, urine culture pending, blood cultures showing no growth to date. Awaiting CT-guided biopsy that will probably occur tomorrow or the next day. 08/17 No overnight event new complaints. Patient did become lightheaded almost passed out when nursing got up from the bed to the chair. Vital signs stable other than mild tachycardia. Awaiting CT-guided biopsy today. 08/18 Patient sitting up in bed eating breakfast. No overnight event or new complaints. Had CT-guided biopsy yesterday. Pending pathology report. 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 08/19 Patient appears comfortable. Working on home with hospice. Occasional cough. A: #Catheter associated UTI (Catheter was present on admission): -BC/UC neg #Failure to thrive: #Atrial fibrillation: #Recent DVT: on Eliquis #Bladder mass versus pelvic mass abutting on bladder: suspicious for malignancy #Left hydronephrosis d/t ureteral compression from mass: #Anemia, chronic: #Impaired cognition: #Poor prognosis Plan -s/p CT-guided biopsy of bladder mass, results pending -Replaced samson catheter Discharge diagnosis: Catheter associated UTI failure to thrive and bladder mass suspicious for m Secondary discharge diagnosis: Bladder mass suspicious for malignancy. Failure to thrive A. fib recent DVT bladder mass pelvic mass left hydronephrosis anemia impaired cognition poor prognosis Time Spent with Patient Time attestation: Total time spent providing and/or coordinating discharge services: Time spent: Greater than 30 minutes EXAM Constitutional Vitals: Temp Pulse Resp BP Pulse Ox 98.6 F 107 H 22 106/71 97 08/17/21 08:39 08/17/21 08:39 08/17/21 08:39 08/17/21 08:39 08/17/21 08:39 Discharge Data Data Completed and Pending Labs on day of discharge: Labs from last 24 hours 08/17/21 08/17/21 05:26 05:26 WBC 18.1 H RBC 3.32 L Hgb 9.7 L Hct 30.1 L MCV 90.7 MCH 29.2 MCHC 32.2 RDW 14.4 Plt Count 462 H MPV 9.9 Neut % (Auto) 81.1 H Lymph % (Auto) 7.4 L [place] % (Auto) 9.6 Eos % (Auto) 1.5 Baso % (Auto) 0.4 Lymph # (Auto) 1.34 L [place] # (Auto) 1.73 H Eos # (Auto) 0.28 Baso # (Auto) 0.08 Absolute Neutrophils 14.66 H Sodium 137 Potassium 3.6 Chloride 106 Carbon Dioxide 23 Anion Gap 8.0 BUN 11 Creatinine 0.9 GFR Calculation 80 Glucose 105 Uric Acid 4.9 Calcium 11.3 H Phosphorus 2.6 Magnesium 2.1 Total Bilirubin 0.3 Direct Bilirubin < 0.2 GGT 17 AST 12 ALT 17 Alkaline Phosphatase 65 Lactate Dehydrogenase 86 L Total Protein 5.5 L Albumin 2.5 L Globulin 3.0 Albumin/Globulin Ratio 0.8 L Triglycerides 58 Preliminary micro results at discharge 08/14/21 19:12 Blood Culture - Preliminary Blood 08/14/21 19:04 Blood Culture - Preliminary Blood 08/14/21 20:04 Urine Culture - Preliminary Urine - Samson Discharge Plan Patient/Caregiver Discharge Instructions Activity: increase activity as tolerated Diet: Regular Diet Prescriptions: New lorazepam 2 mg/mL concentrate 1 mg sublingual QD-BID PRN (Reason: anxiety) Qty: 30 0RF morphine 20 mg/5 mL (4 mg/mL) solution 10 mg PO Q1-2HP PRN (Reason: pain) Qty: 100 0RF hyoscyamine sulfate [Levsin/SL] 0.125 mg tablet, sublingual 0.125 mg sublingual QID PRN (Reason: terminal secretions) Qty: 20 0RF ondansetron 4 mg tablet,disintegrating 4 mg translingual Q6H PRN (Reason: nausea and vomiting) Qty: 30 0RF Continued tamsulosin 0.4 mg capsule 1 cap PO QDAY 0RF pregabalin 75 mg capsule 1 cap PO QDAY 0RF Eliquis 5 mg tablet 5 tab PO BID 0RF folic acid capsule 1,000 mg DAILY 0RF magnesium 200 mg Tablet 300 mg PO QDAY 0RF ciprofloxacin HCl 500 mg tablet 500 mg PO BID Qty: 6 0RF digoxin 125 mcg (0.125 mg) tablet 125 mcg PO QDAY 0RF midodrine 5 mg tablet 5 mg PO TID 0RF Discontinued Eliquis 5 mg tablet 1 tab PO BID 0RF Follow Up Plan Follow up with: Ana Paula George [Primary Care Provider] - Patient Disposition: Hospice - Home Prognosis: Undetermined Rehab Potential: Fair I certify that the patient requires SNF services: Yes Discharge Orders: Discharge Order (Routine); Ordered 08/19/21 Ordered By: Stephane Dove [facility] VTE Deep Vein Thrombosis/Pulmonary Embolism Present on Admission: No
[2021-08-17] MEDS: DIGOXIN 125 MCG TABLET PO SCH (15:06)
[2021-08-17] MEDS: ACETAMINOPHEN 325 MG TABLET PO PRN (15:07)
[2021-08-17] MEDS: PREGABALIN 75 MG CAPSULE PO SCH (15:07)
[2021-08-17] MEDS: TAMSULOSIN 0.4 MG CAPSULE PO SCH (15:07)
--- NOTE | 2021-08-17 18:33 | Cat Scan Report ---
CLINICAL INFORMATION: 11 cm solid cystic mass originating from or extrinsic to the left urinary bladder base. TECHNIQUE: The procedure and risks including possibility of bleeding, infection and tissue sampling were discussed with the patient. He understood and wished to proceed. With the patient supine on the CT table, the lesion was first CT localized. The skin overlying the inferior aspect of the lesion, which obtained the greatest amount of solid nonnecrotic tissue, was marked, prepped and locally anesthetized with 1% lidocaine using a 25-gauge spinal needle. A 17-gauge [place] guide needle was then advanced into the mass under CT guidance. Through this guide, an 18-gauge [place] needle was used to obtain six core tissue samples were sent in formalin to pathology. The needle was washed with sterile saline between each pass. The needle was then removed. Postprocedure scanning shows no hemorrhage or other complication. Procedure was well tolerated by the patient. 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 No apparent complication. Pathology pending Interpreted and Authenticated by: Paul Figueroa 08/17/21
[2021-08-17] MEDS: HYDROcodone/APAP 5/325MG TABLET PO PRN (21:30)
[2021-08-17] MEDS: APIXABAN 5 MG TABLET PO SCH (21:30)
[2021-08-17] MEDS: SENNOSIDES 1 TABLET PO SCH (21:30)
[2021-08-18] MEDS: PIPERACILLIN SODIUM/TAZOBACTAM 4.5 GM in DEXTROSE 5% IN WATER 50 ML IV SCH ×3 (06:04→21:51)
[2021-08-18] MEDS: 0.9 % SODIUM CHLORIDE 10 ML SYRINGE IV SCH ×3 (06:05→21:51)
--- NOTE | 2021-08-18 07:19 | Internal Med Progress Note ---
SUBJECTIVE Subjective Patient information: Note initiated : 08/18/21 at 7:17 am Service Date, if different from initiated Date: [] Patient: Jean Claude Clayton 81 y/o M admitted on 08/14/21 for UTI. Chief Complaint: [] Interval history: Mr. Clayton is a 81 year old male with a history of atrial fibrillation, recent DVT on Eliquis, bladder mass versus pelvic mass compressing upon the bladder complicated by bladder outlet obstruction requiring indwelling Samson catheter who presented to the ED for fatigue, decreased appetite, unintentional weight loss consistent with failure to thrive. The patient was admitted to [facility] in mid June and was found to have this mass, he has since followed up with urology and the tentative plan is to proceed with surgery for a transurethral resection of the bladder mass. In the ED, the patient was hemodynamically stable, tachycardic with a respiratory rate in the mid 20s. CBC was noted for a leukocytosis with a left shift, lactic acid was elevated at 2.6. Renal function was normal, calcium level was noted to be elevated at 12.4, albumin was normal at 3.3. Urinalysis was suggestive of a urinary tract infection. The patient received a dose of Zosyn in the emergency department. Hospital medicine was consulted for admission. The patient was accompanied in the ED by one of his daughters who says that the patient has become losing weight and become so weak that he is almost bedbound. We discussed goals of care at the bedside. It is clear that the patient and especially his daughters are having second thoughts about proceeding with aggressive treatment for the mass. His daughter is concerned that he will not survive the surgery given his current clinical status. We discussed the option of comfort care and getting hospice involved with a goal of the patient going home with hospice. Patient was not ready to make a decision however he does want his pain controlled and to be comfortable. Explained that we can admit him to the hospital, treat his probable urinary tract infection and control his pain. We can have a discussion about goals of care tomorrow and proceed accordingly. 08/[address] abdomen/pelvis reported from the ED showed an interval increase in the mass size from 9 cm to 11 cm. Mental status markedly improved since admission. Continues on Zosyn, urine culture pending. Replaced low potassium, WBC increased. Second lactic acid was normal. Goals of care discussed with the patient and his daughter at bedside. The patient wants to pursue a CT-guided biopsy to know what kind of malignancy he has but does not want to pursue aggressive treatments. He is leaning towards discharge to transitional care unit for a short period of rehab then probably going home with hospice. Held Eliquis for CT-guided biopsy that will likely occur on 08/17/2021. Discussed the patient's wish to proceed with CT-guided biopsy with Dr. Figueroa. Replace Samson catheter. 08/16 No significant events overnight, afebrile overnight, resting comfortably this morning. Continues on Zosyn, WC downtrending, urine culture pending, blood cultures showing no growth to date. Awaiting CT-guided biopsy that will probably occur tomorrow or the next day. 08/17 No overnight event new complaints. Patient did become lightheaded almost passed out when nursing got up from the bed to the chair. Vital signs stable other than mild tachycardia. Awaiting CT-guided biopsy today. 08/18 Patient sitting up in bed eating breakfast. No overnight event or new complaints. Had CT-guided biopsy yesterday. Pending pathology report. Review of Systems: denies headache/fever/chills/nausea/vomiting/chest or abdominal pain/cough/dyspnea/diarrhea. Otherwise see above. Constitutional Vitals: Vital Signs Temp Pulse Resp BP Pulse Ox 97.2 F 81 20 108/73 94 08/18/21 07:06 08/18/21 07:06 08/18/21 07:06 08/18/21 07:06 08/18/21 07:06 Period Temp Pulse Resp BP Sys/Urban Pulse Ox Last 24 Hr 97.2 F-98.8 F 81-110 20-27 94-141/62-73 94-100 Intake and Output 08/17/21 08/18/21 08/18/21 21:59 05:59 13:59 Intake Total 1660 1150 50 Output Total 550 620 600 Balance 1110 530 -550 Weight 83.96 kg Intake & Output: Intake & Output 08/17/21 08/18/21 08/18/21 21:59 05:59 13:59 Intake Total 1660 1150 50 Output Total 550 620 600 Balance 1110 530 -550 Weight 83.96 kg Intake: Nourishment/Supplement quantity 720 (ml) IV 50 1050 50 NaCl 0.9% W/KCl 20Meq 1000ML 1, 1000 000 ml @ 75 mls/hr IV .[id number] [facility] Rx#:[id number] Zosyn 4.5 gm In Dextrose 5% in 50 50 50 Water 50 ml @ 100 mls/hr IV Q8H [facility] Rx#:[id number] Oral 890 100 Output: Urine Catheter Amount 550 620 Void Amount 600 Other: Meal Dinner Percent of Meal Consumed 75% Nourishment/Supplement name ensure Urine Appearance Cloudy Clear Clear Urine Color Straw Pale Bright Yellow Blood Tinged Urine Odor Strong Exam: General: Alert, Awake, No acute Distress Eyes/N/T: EOMI, Head/Neck: neck supple, CV: irreg irreg, No murmurs, Pulm: Clear b/l, no wheezing/rhonchi/rales Abd: soft, nontender, +BS x4 Ext: no clubbing/cyanosis/edema Neuro: Alert, no focal deficits, moves all extremities, Skin: warm/dry Psychiatric: normal mood, impaired cognition OBJ DATA Labs CBC & Chem 7: 08/18/21 05:55 08/18/21 05:56 Labs: Abnormal Lab Results 08/17/21 08/17/21 08/16/21 05:26 05:26 05:33 WBC 18.1 H RBC 3.32 L Hgb 9.7 L Hct 30.1 L Plt Count 462 H Neut % (Auto) 81.1 H Lymph % (Auto) 7.4 L Lymph # (Auto) 1.34 L [place] # (Auto) 1.73 H Absolute Neutrophils 14.66 H Potassium Glucose Calcium 11.3 H 10.8 H Phosphorus Lactate Dehydrogenase 86 L Total Protein 5.5 L 5.2 L Albumin 2.5 L 2.3 L Albumin/Globulin Ratio 0.8 L 0.8 L 08/16/21 08/15/21 08/15/21 05:33 06:16 06:16 WBC 13.6 H 16.0 H RBC 3.01 L 3.34 L Hgb 8.6 L 9.7 L Hct 27.7 L 30.4 L Plt Count 452 H Neut % (Auto) Lymph % (Auto) 11.0 L 10.7 L Lymph # (Auto) 1.49 L [place] # (Auto) 1.53 H 1.62 H Absolute Neutrophils 10.09 H 12.40 H Potassium 3.2 L Glucose 115 H Calcium 11.2 H Phosphorus 2.4 L Lactate Dehydrogenase 68 L Total Protein 5.5 L Albumin 2.6 L Albumin/Globulin Ratio 0.9 L Meds: Medications Acetaminophen (Acetaminophen 325 Mg Tablet) 650 mg PO Q4HP PRN; Protocol PRN Reason: Per Pain Protocol Last Admin: 08/17/21 15:07 Dose: 650 mg Documented by: Hydrocodone Bitart/Acetaminophen (Hydrocodone/Apap 5/325mg Tablet) 1 tab PO Q4HP PRN; Protocol PRN Reason: Per Pain Protocol Last Admin: 08/17/21 21:30 Dose: 1 tab Documented by: Apixaban (Apixaban 5 Mg Tablet) 5 mg PO BID [facility] Last Admin: 08/17/21 21:30 Dose: 5 mg Documented by: Digoxin (Digoxin 125 Mcg Tablet) 125 mcg PO DAILY@1400 [facility] Last Admin: 08/17/21 15:06 Dose: 125 mcg Documented by: Docusate Sodium (Docusate Sodium 100 Mg Capsule) 100 mg PO BID [facility] Last Admin: 08/17/21 21:30 Dose: 100 mg Documented by: Folic Acid (Folic Acid 1 Mg Tablet) 1 mg PO DAILY [facility] Last Admin: 08/17/21 10:13 Dose: Not Given Documented by: Hydromorphone HCl (Hydromorphone 0.5 Mg/0.5 Ml Syringe) 0.5 mg IV Q2HP PRN; Protocol PRN Reason: Per Pain Protocol Piperacillin Sod/Tazobactam (Sod 4.5 gm/ Dextrose) 50 mls @ 100 mls/hr IV Q8H [facility]; Protocol Last Infusion: 08/18/21 06:46 Dose: Infused Documented by: Midodrine (Midodrine 5 Mg Tablet) 5 mg PO TID@0800,1200,1700 [facility] Last Admin: 08/17/21 16:31 Dose: 5 mg Documented by: Ondansetron HCl (Ondansetron 4 Mg/2 Ml Vial) 4 mg IV Q6HP PRN PRN Reason: Nausea And Vomiting Pregabalin (Pregabalin 75 Mg Capsule) 75 mg PO DAILY [facility] Last Admin: 08/17/21 15:07 Dose: 75 mg Documented by: Senna (Sennosides 1 Tablet) 2 tab PO HS [facility] Last Admin: 08/17/21 21:30 Dose: 2 tab Documented by: Sodium Chloride (0.9 % Sodium Chloride 10 Ml Syringe) 10 ml IV Q8 [facility] Last Admin: 08/18/21 06:05 Dose: 10 ml Documented by: Tamsulosin HCl (Tamsulosin 0.4 Mg Capsule) 0.4 mg PO DAILY [facility] Last Admin: 08/17/21 15:07 Dose: 0.4 mg Documented by: A/P Narrative A/P Narrative: A: #Catheter associated UTI (Catheter was present on admission): -BC/UC neg #Failure to thrive: #Atrial fibrillation: #Recent DVT: on Eliquis #Bladder mass versus pelvic mass abutting on bladder: #Left hydronephrosis d/t ureteral compression from mass: #Anemia, chronic: #Impaired cognition: #Poor prognosis Plan -Zosyn - deescalate, -pending results of CT-guided biopsy of bladder mass -Continue home digoxin/midodrine, lyrica, flomax -Replaced samson catheter -Delirium bundle -Disposition: Probably SNF for short course of rehab followed by home with hospice. -ppx: On Eliquis, SCD CODE STATUS: DNR/DNI Time Spent With Patient Time: Total time spent is greater than 50% in coordination of care (as documented) at patient's floor/unit and/or counseling patient: QUALITY VTE Deep Vein Thrombosis/Pulmonary Embolism Present on Admission: No
[2021-08-18 07:45] LABS: Hematocrit 28.1 % (40.1-51.0); Hemoglobin 9.1 g/dL (13.7-17.5); Mean Cell Volume 91.2 fL (80.0-100.0); Mean Corpuscular HGB Conc 32.4 g/dL (31.0-36.0); Platelet Count 427 K/mcL (140-440); RBC 3.08 M/mcL (4.63-6.08); Red Cell Distribution Width 14.5 % (11.5-14.5); WBC 16.2 K/mcL (4.5-11.0)
[2021-08-18 07:55] LABS: ALT/SGPT 15 U/L (<40); AST/SGOT 11 U/L (<40); Albumin 2.3 gm/dL (3.2-5.2); Albumin/Globulin Ratio 0.7 (1.0-2.3); Alkaline Phosphatase 57 U/L (39-117); Bilirubin,Direct < 0.2 mg/dL (0-0.3); Bilirubin,Total 0.3 mg/dL (0.1-1.0); Blood Urea Nitrogen 16 mg/dL (8-23); Carbon Dioxide 24 mmol/L (22-30); Chloride 107 mmol/L (96-108); Globulin 3.2 gm/dL (2.2-3.7); Glomerular Filtration Rate 70; Glucose 94 mg/dL (70-105); Lactate Dehydrogenase 89 U/L (135-225); Phosphorous 2.8 mg/dL (2.5-4.5); Triglycerides 49 mg/dL (<150); Uric Acid 4.6 mg/dL (2.5-8.0)
[2021-08-18] MEDS: TAMSULOSIN 0.4 MG CAPSULE PO SCH (08:12)
[2021-08-18] MEDS: APIXABAN 5 MG TABLET PO SCH ×2 (08:12→21:51)
[2021-08-18] MEDS: DOCUSATE SODIUM 100 MG CAPSULE PO SCH ×2 (08:12→21:50)
[2021-08-18] MEDS: FOLIC ACID 1 MG TABLET PO SCH (08:12)
[2021-08-18] MEDS: PREGABALIN 75 MG CAPSULE PO SCH (08:12)
[2021-08-18] MEDS: MIDODRINE 5 MG TABLET PO SCH ×3 (08:13→17:14)
[2021-08-18] MEDS: ACETAMINOPHEN 325 MG TABLET PO PRN (08:14)
[2021-08-18 08:42] LABS: Band Neutrophils % 1 % (0-10); Eosinophils % (Manual) 3 % (0-7); Lymphocytes % 8 % (15-49); Monocytes % (Manual) 5 % (1-12); Platelet Estimate NORMAL (Normal); RBC Morphology NORMAL (Normal); Segmented Neutrophils % 83 % (38-78)
[2021-08-18] MEDS ORDERED: MEGESTROL ACETATE 400 MG/10 ML UDC PO SCH (10:25)
[2021-08-18] MEDS: DIGOXIN 125 MCG TABLET PO SCH (14:50)
[2021-08-18] MEDS: HYDROcodone/APAP 5/325MG TABLET PO PRN (21:50)
[2021-08-18] MEDS: SENNOSIDES 1 TABLET PO SCH (21:51)
[2021-08-19] MEDS: 0.9 % SODIUM CHLORIDE 10 ML SYRINGE IV SCH ×2 (03:28→04:11)
[2021-08-19] MEDS: DOCUSATE SODIUM 100 MG CAPSULE PO SCH (08:07)
[2021-08-19] MEDS: TAMSULOSIN 0.4 MG CAPSULE PO SCH (08:07)
[2021-08-19] MEDS: FOLIC ACID 1 MG TABLET PO SCH (08:07)
[2021-08-19] MEDS: PREGABALIN 75 MG CAPSULE PO SCH (08:07)
[2021-08-19] MEDS: MIDODRINE 5 MG TABLET PO SCH (08:07)
[2021-08-19] MEDS: APIXABAN 5 MG TABLET PO SCH (08:07)
--- NOTE | 2021-08-19 09:56 | Internal Med Progress Note ---
SUBJECTIVE Subjective Patient information: Note initiated : 08/19/21 at 9:53 am Service Date, if different from initiated Date: [] Patient: Jean Claude Clayton 81 y/o M admitted on 08/14/21 for UTI. Chief Complaint: [] Interval history: Mr. Clayton is a 81 year old male with a history of atrial fibrillation, recent DVT on Eliquis, bladder mass versus pelvic mass compressing upon the bladder complicated by bladder outlet obstruction requiring indwelling Samson catheter who presented to the ED for fatigue, decreased appetite, unintentional weight loss consistent with failure to thrive. The patient was admitted to [facility] in mid June and was found to have this mass, he has since followed up with urology and the tentative plan is to proceed with surgery for a transurethral resection of the bladder mass. In the ED, the patient was hemodynamically stable, tachycardic with a respiratory rate in the mid 20s. CBC was noted for a leukocytosis with a left shift, lactic acid was elevated at 2.6. Renal function was normal, calcium level was noted to be elevated at 12.4, albumin was normal at 3.3. Urinalysis was suggestive of a urinary tract infection. The patient received a dose of Zosyn in the emergency department. Hospital medicine was consulted for admission. The patient was accompanied in the ED by one of his daughters who says that the patient has become losing weight and become so weak that he is almost bedbound. We discussed goals of care at the bedside. It is clear that the patient and especially his daughters are having second thoughts about proceeding with aggressive treatment for the mass. His daughter is concerned that he will not survive the surgery given his current clinical status. We discussed the option of comfort care and getting hospice involved with a goal of the patient going home with hospice. Patient was not ready to make a decision however he does want his pain controlled and to be comfortable. Explained that we can admit him to the hospital, treat his probable urinary tract infection and control his pain. We can have a discussion about goals of care tomorrow and proceed accordingly. 08/[address] abdomen/pelvis reported from the ED showed an interval increase in the mass size from 9 cm to 11 cm. Mental status markedly improved since admission. Continues on Zosyn, urine culture pending. Replaced low potassium, WBC increased. Second lactic acid was normal. Goals of care discussed with the patient and his daughter at bedside. The patient wants to pursue a CT-guided biopsy to know what kind of malignancy he has but does not want to pursue aggressive treatments. He is leaning towards discharge to transitional care unit for a short period of rehab then probably going home with hospice. Held Eliquis for CT-guided biopsy that will likely occur on 08/17/2021. Discussed the patient's wish to proceed with CT-guided biopsy with Dr. Figueroa. Replace Samson catheter. 08/16 No significant events overnight, afebrile overnight, resting comfortably this morning. Continues on Zosyn, WC downtrending, urine culture pending, blood cultures showing no growth to date. Awaiting CT-guided biopsy that will probably occur tomorrow or the next day. 08/17 No overnight event new complaints. Patient did become lightheaded almost passed out when nursing got up from the bed to the chair. Vital signs stable other than mild tachycardia. Awaiting CT-guided biopsy today. 08/18 Patient sitting up in bed eating breakfast. No overnight event or new complaints. Had CT-guided biopsy yesterday. Pending pathology report. After discussion with patient's family member and case maker> family members decided it would be best to transition home with hospice instead of the original plan to go to SNF and then hospice. 08/19 Patient appears comfortable. Working on home with hospice. Occasional cough. Review of Systems: denies headache/fever/chills/nausea/vomiting/chest or abdominal pain/dyspnea/diarrhea. Otherwise see above. Constitutional Vitals: Vital Signs Temp Pulse Resp BP Pulse Ox 98.4 F 88 20 122/66 95 08/19/21 07:58 08/19/21 07:58 08/19/21 07:58 08/19/21 07:58 08/19/21 07:58 Period Temp Pulse Resp BP Sys/Urban Pulse Ox Last 24 Hr 97.3 F-99.1 F 86-101 20-24 101-134/64-81 94-99 Intake and Output 08/18/21 08/19/21 08/19/21 21:59 05:59 13:59 Intake Total 1370 450 Output Total 600 475 Balance 770 -25 Weight 82.1 kg Intake & Output: Intake & Output 08/18/21 08/19/2108/19/22 21:59 05:59 13:59 Intake Total 1370 450 Output Total 600 475 Balance 770 -25 Weight 82.1 kg Intake: Nourishment/Supplement quantity 720 (ml) IV 50 50 Zosyn 4.5 gm In Dextrose 5% in 50 50 Water 50 ml @ 100 mls/hr IV Q8H [facility] Rx#:[id number] Oral 600 400 Output: Urine Catheter Amount 600 475 Other: Meal Dinner Breakfast Percent of Meal Consumed 75% Refused Nourishment/Supplement name ensure Urine Appearance Sediment Clear Clear Uretheral (Samson) Clear Urine Color Dark Yellow Bright Yellow [place] Straw Blood Tinged Uretheral (Samson) [place] Stool Size Small Stool Color Brown Stool Consistency Loose Exam: General: Awake, No acute Distress Eyes/N/T: EOMI, Head/Neck: neck supple, CV: irreg irreg, No murmurs, Pulm: Clear b/l, no wheezing/rhonchi/rales Abd: soft, nontender, +BS x4 Ext: no clubbing/cyanosis/edema Neuro: Alert, no focal deficits, moves all extremities, Skin: warm/dry Psychiatric: normal mood, impaired cognition OBJ DATA Labs CBC & Chem 7: 08/18/21 05:55 08/18/21 05:56 Labs: Abnormal Lab Results 08/18/21 08/18/21 08/17/21 05:56 05:55 05:26 WBC 16.2 H RBC 3.08 L Hgb 9.1 L Hct 28.1 L Plt Count Neut % (Auto) Lymph % (Auto) Lymph # (Auto) Simpson # (Auto) Seg Neutrophils % 83 H Lymphocytes % 8 L Absolute Neutrophils Calcium 11.0 H 11.3 H Lactate Dehydrogenase 89 L 86 L Total Protein 5.5 L 5.5 L Albumin 2.3 L 2.5 L Albumin/Globulin Ratio 0.7 L 0.8 L 08/17/21 05:26 WBC 18.1 H RBC 3.32 L Hgb 9.7 L Hct 30.1 L Plt Count 462 H Neut % (Auto) 81.1 H Lymph % (Auto) 7.4 L Lymph # (Auto) 1.34 L Simpson # (Auto) 1.73 H Seg Neutrophils % Lymphocytes % Absolute Neutrophils 14.66 H Calcium Lactate Dehydrogenase Total Protein Albumin Albumin/Globulin Ratio Meds: Medications Acetaminophen (Acetaminophen 325 Mg Tablet) 650 mg PO Q4HP PRN; Protocol PRN Reason: Per Pain Protocol Last Admin: 08/18/21 08:14 Dose: 650 mg Documented by: Hydrocodone Bitart/Acetaminophen (Hydrocodone/Apap 5/325mg Tablet) 1 tab PO Q4HP PRN; Protocol PRN Reason: Per Pain Protocol Last Admin: 08/18/21 21:50 Dose: 1 tab Documented by: Apixaban (Apixaban 5 Mg Tablet) 5 mg PO BID [facility] Last Admin: 08/19/21 08:07 Dose: 5 mg Documented by: Digoxin (Digoxin 125 Mcg Tablet) 125 mcg PO DAILY@1400 [facility] Last Admin: 08/18/21 14:50 Dose: 125 mcg Documented by: Docusate Sodium (Docusate Sodium 100 Mg Capsule) 100 mg PO BID [facility] Last Admin: 08/19/21 08:07 Dose: Not Given Documented by: Folic Acid (Folic Acid 1 Mg Tablet) 1 mg PO DAILY [facility] Last Admin: 08/19/21 08:07 Dose: 1 mg Documented by: Hydromorphone HCl (Hydromorphone 0.5 Mg/0.5 Ml Syringe) 0.5 mg IV Q2HP PRN; Protocol PRN Reason: Per Pain Protocol Midodrine (Midodrine 5 Mg Tablet) 5 mg PO TID@0800,1200,1700 [facility] Last Admin: 08/19/21 08:07 Dose: 5 mg Documented by: Ondansetron HCl (Ondansetron 4 Mg/2 Ml Vial) 4 mg IV Q6HP PRN PRN Reason: Nausea And Vomiting Pregabalin (Pregabalin 75 Mg Capsule) 75 mg PO DAILY [facility] Last Admin: 08/19/21 08:07 Dose: 75 mg Documented by: Senna (Sennosides 1 Tablet) 2 tab PO HS [facility] Last Admin: 08/18/21 21:51 Dose: 2 tab Documented by: Sodium Chloride (0.9 % Sodium Chloride 10 Ml Syringe) 10 ml IV Q8 [facility] Last Admin: 08/19/21 04:11 Dose: Not Given Documented by: Tamsulosin HCl (Tamsulosin 0.4 Mg Capsule) 0.4 mg PO DAILY [facility] Last Admin: 08/19/21 08:07 Dose: 0.4 mg Documented by: A/P Narrative A/P Narrative: A: #Catheter associated UTI (Catheter was present on admission): -BC/UC neg #Failure to thrive: #Atrial fibrillation: #Recent DVT: on Eliquis #Bladder mass versus pelvic mass abutting on bladder: #Left hydronephrosis d/t ureteral compression from mass: #Anemia, chronic: #Impaired cognition: #Poor prognosis Plan -Zosyn finished -pending results of CT-guided biopsy of bladder mass -Continue home digoxin/midodrine, lyrica, flomax -Replaced samson catheter -Delirium bundle -Disposition: home with hospice. -ppx: On Eliquis, SCD CODE STATUS: DNR/DNI Time Spent With Patient Time: Total time spent is greater than 50% in coordination of care (as documented) at patient's floor/unit and/or counseling patient: QUALITY VTE Deep Vein Thrombosis/Pulmonary Embolism Present on Admission: No
== END 2021-08-19 13:12 | disposition hospice, home (50) | DRG 699 ==
LOC: ED 18:36 → MEDSUR 23:44
PROVIDERS: ADMIT Internal Medicine; ATTEND Internal Medicine